=== PATIENT | male | born 1955 | race Caucasian/White ===

== ENCOUNTER 2020-01-26 23:03 | Emergency (ER) | payer MEDICAID, SELFPAY ==
[2020-01-26 23:05] VITALS: BP 174/118; PULSE 147; RESP 28; TEMP 36.2; O2SAT 96; BMI 37.5
--- NOTE | 2020-01-26 23:08 | EKG12_ITS ---
Test Reason : NEURO Blood Pressure : / mmHG Vent. Rate : 129 BPM Atrial Rate : 127 BPM P-R Int : 000 ms QRS Dur : 096 ms QT Int : 270 ms P-R-T Axes : 000 060 270 degrees QTc Int : 395 ms Atrial fibrillation Septal infarct , age undetermined Abnormal ECG Confirmed by ANNABELLE CALDWELL, LISA ([id number]), clinical editor FABIEN BURKETT ([id number]) on 01/29/2020 3:59:20 PM Referred By: PORSCHE Confirmed By:LISA ALANIS MD
--- NOTE | 2020-01-26 23:08 | CT_ITS ---
We are attempting to reach an attending provider to discuss findings. An addendum with communication details will be sent when the communication is complete. STUDY: CT BRAIN WITHOUT CONTRAST REASON FOR EXAM: Male, 64 years old. STROKE. Syncopal episode, ,slurred speech. Last known well 1999 RADIATION DOSAGE (If Supplied By Facility): CTDIvol = ( 44.99 ) mGy, DLP = ( 846.73 ) mGycm TECHNIQUE: Transaxial CT imaging of the brain was performed without administration of intravenous contrast material. Individualized dose optimization techniques were used for this CT. COMPARISON: No relevant priors. FINDINGS: Normal soft tissue structures. Normal calvarium. Abnormal appearance of the left parieto-occipital region where there is a lobulated hyperdense structure approximately 4.9 cm in greatest dimension surrounded by mild to moderate edema. There is effacement of overlying sulci. The appearance suggests neoplastic mass possibly with petechial hemorrhage or hyper dense stroma. Less likely would be a focal infarct with petechial hemorrhage. MRI with contrast is indicated. Otherwise normal size ventricles and extra-axial spaces for the patient''s age. There are areas of decreased attenuation within the white matter tracts of the supratentorial brain, consistent with microvascular disease changes. Normal basal ganglia and thalami. Normal brainstem. Normal cerebellum. Normal visualized paranasal sinuses. CT/Brain/Head without Contrast IMPRESSION: 4.9 cm focal hypodense lesion of the left parieto-occipital region. This could be a mass with mild surrounding edema. Infarct with minimal petechial hemorrhage also possible. MRI with contrast recommended. Electronically Signed: Raphael Tijerina MD at 23:34 EDT , Service support ,
--- NOTE | 2020-01-26 23:09 | CT_ITS ---
STUDY: CTA HEAD AND NECK WITH CONTRAST REASON FOR EXAM: Male, 64 years old. NEURO DEFICIT. Patient had syncopal episode, fell. Slurred speech. Last known well 1999. Hx of HTN and afib RADIATION DOSAGE (If Supplied By Facility): CTDIvol = ( 36.90 ) mGy, DLP = ( 750.06 ) mGycm TECHNIQUE: CT angiography was performed with a multi-detector CT scanner. Data acquisition was obtained from the skull base through the vertex following intravenous administration of Isovue 370 100ml. MIP images were reconstructed from the axial data set. Post-processing of the angiographic images was performed, with multiplanar reformation and 3D reconstruction. Individualized dose optimization techniques were used for this CT. COMPARISON: No relevant priors. FINDINGS: Normal bilateral petrous carotid arteries. There is calcified plaque formation of the right cavernous carotid artery, without a cross-sectional luminal stenosis. There is calcified plaque formation of the left cavernous carotid artery, without a cross-sectional luminal stenosis. Normal right A1 segments of the anterior cerebral artery. Normal left A1 segments of the anterior cerebral artery. Normal intact anterior communicating artery (ACOM). Normal bilateral A2 segments of the anterior cerebral arteries. Normal right M1 and M2 segments of the middle cerebral arteries, with a normal M1 bifurcation. Normal left M1 and M2 segments of the middle cerebral arteries, with a normal M1 bifurcation. Normal right posterior communicating artery (PCOM). Normal left posterior communicating artery (PCOM). Normal bilateral vertebral arteries. Normal basilar artery with a normal basilar bifurcation. The visualized bilateral superior cerebellar (SCA) arteries are normal. Normal bilateral P1, P2 and visualized P3 segments of the posterior cerebral arteries. There is no demonstrated aneurysm of the [place]. AORTIC ARCH: Normal visualized aortic arch. 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 RIGHT CAROTID ARTERIES: Normal right common carotid artery (CCA). Normal right common carotid bulb. Normal origin of the right internal carotid (ICA) artery without a hemodynamically significant stenosis. Normal visualized cervical portion of the right internal carotid artery. Normal origin of the right external carotid artery (ECA). LEFT CAROTID ARTERIES: Normal left common carotid artery (CCA). There is mild atherosclerotic plaque formation with minimal narrowing of the left carotid bulb. There is mild atherosclerotic plaque formation of the origin of the left internal carotid artery with less than 50% cross sectional diameter stenosis. Normal visualized cervical portion of the left internal carotid artery. Normal origin of the left external carotid artery (ECA). VERTEBRAL ARTERIES: Normal bilateral vertebral arteries. There is a 2.5 cm low density mass seen of the left thyroid lobe, ultrasound recommended. CT/CTA Head AND Neck W/ Contrast IMPRESSION: No acute abnormality. No evidence for occlusion, thrombus, or hemodynamically significant stenosis. Electronically Signed: Raphael Tijerina MD at 23:48 EDT , Service support ,
--- NOTE | 2020-01-26 23:10 | ED.DCSUM_ITS ---
History of Present Illness Chief Complaint: Neuro S/Sx Informant: Patient, Significant Other Onset: Today - Speech and problems walking today at 2210. states had tunnel vision Sunday and possibly problems with balance. Quality and Location: Slurred Speech Current Severity: Mild Maximum Severity: Moderate Worsened by: Nothing Relieved by: Nothing Associated Symptoms: Negative for: Headache, Nausea, Vomiting, Chest Pain Narrative: Patient 64-year-old male who was diagnosed today with atrial fibrillation and history of hypertension who was brought to the emergency room by squad because of problems with speech, walking according to patient and . He apparently had tunnel vision that was first noted on Sunday and problems with balance on Sunday. He is presently not on an anticoagulant. There is no prior history of stroke. 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 He is not a good informant. He states he cannot read. He states his has to read to him. Prior similar symptoms: No Recent Illness/Hospitalization: No - Past Medical History (1) History of hypertension Status: Acute (2) Atrial fibrillation with RVR Status: Acute (3) Chest pain Status: Acute (4) New onset atrial fibrillation Status: Acute Past Medical History - Allergies and Home Meds Allergies/Adverse Reactions: Allergies No Known Allergies Allergy (Verified 01/26/20 23:08) Primary Care Physician: Rian Loja III, MD [Primary Care Provider] - Prior records reviewed: Yes Surgical History: noncontributory Lives: Spouse/ Significant Other Smoking Status: Former smoker Alcohol: None Drugs: None Review of Systems General: Denies: Chills, Fever, Malaise, Subjective, Sweats Eyes: Reports: Visual changes - bilaterally, Blurred Vision - bilaterally. Denies: Diplopia ENT: Denies: Bilateral ear pain, Rhinorrhea, Sore throat Cardiovascular: Denies: Chest pain, Palpitations, Heart racing Respiratory: Denies: Dyspnea, Cough, Sputum, Dyspnea on exertion Gastrointestinal: Denies: Abdominal pain, Nausea, Vomiting, Diarrhea, Melena, Hematochezia Genitourinary: Denies: Dysuria, Hematuria, Frequency Musculoskeletal: Denies: Myalgias, Arthralgias, Neck pain, Back pain, Swelling, Extremity Pain Skin: Denies: Rash, Wounds Neurological: Reports: Weakness, - - According to his speech was very garbled. Denies: Headache, Parasthesia, Numbness Psych: Denies: Depression, Anxiety, Suicidal thoughts, Suicidal ideations Endocrine: Denies: Polyuria, Polydipsia Hematologic: Denies: Easy bruising, Easy bleeding Allergy: Denies: Uticaria, Swelling of the mouth STROKE Vital Signs/Narrative: Vital Signs Temp Pulse Resp BP Pulse Ox 01/26/20 23:05 97.2 F L 147 H 28 H 174/118 H 96 Inital Vital Signs reviewed: Yes - NIHSS Initial 1a Level of Consciousness: 0 1b LOC Questions (Score 2 if aphasic/stupor): 1 1c LOC Commands (Only score 1st attempt): 0 2 Best Gaze (If aphasic, use reflexive mvmts.): 0 3 Visual: 0 4 Facial Palsy: 0 5 Motor Arm Right (UN = amputation/fusion): 1 5 Motor Arm Left: 0 6 Motor Leg Right: 1 6 Motor Leg Left: 0 7 Limb ataxia (Only + if out of proportion): 1 8 Sensory (Aphasia/stupor=0 or 1, coma=2): 0 9 Best Language: 0 10 Dysarthria (mute, coma=2, intubated=UN): 1 11 Extinction and Inattention (only scored if +): 0 Total Score: 5 2nd Follow up 1a Level of Consciousness: 0 1b LOC Questions (Score 2 if aphasic/stupor): 0 1c LOC Commands (Only score 1st attempt): 0 2 Best Gaze (If aphasic, use reflexive mvmts.): 0 3 Visual: 0 4 Facial Palsy: 0 5 Motor Arm Right (UN = amputation/fusion): 0 5 Motor Arm Left: 0 6 Motor Leg Right: 0 6 Motor Leg Left: 0 7 Limb ataxia (Only + if out of proportion): 1 8 Sensory (Aphasia/stupor=0 or 1, coma=2): 0 9 Best Language: 0 10 Dysarthria (mute, coma=2, intubated=UN): 0 11 Extinction and Inattention (only scored if +): 0 Total Score: 1 General: Well nourished, Well developed, Obese, Unkempt Head: Normocephalic, Atraumatic. Negative for: Trauma, Tenderness Eyes: - - Static right eye. Negative for: Pale conjunctiva, Scleral icterus ENT: Moist mucous membranes, No rhinorrhea, TM's clear Neck: Supple, Nontender, No lymphadenopathy, No JVD Cardiovascular: No murmurs, Irregular Respiratory: No distress, CTA bilaterally Abdomen: Soft, Nontender, Nondistended, Normal bowel sounds Rectal: Deferred Back: Nontender, Normal Inspection Extremities: Nontender, Edema Skin: Normal color, No rash, No Trauma. Negative for: Cyanosis, Diaphoresis, Jaundice Neurological: Alert, Cranial nerves II-XII grossly intact, Normal DTR. Negative for: Normal Strength, Normal Sensation Psychological: Normal affect Diagnostic/Tx/Re-eval Impressions Brain CT 01/26/20 23:08 IMPRESSION: 4.9 cm focal hypodense lesion of the left parieto-occipital region. This could be a mass with mild surrounding edema. Infarct with minimal petechial hemorrhage also possible. MRI with contrast recommended. Electronically Signed: Raphael Tijerina MD at 23:34 EDT , Service support , ADDENDUM: 01/26/20 2351 IMPRESSION: 4.9 cm focal hypodense lesion of the left parieto-occipital region. This could be a mass with mild surrounding edema. Infarct with minimal petechial hemorrhage also possible. MRI with contrast recommended. N.B. : The above information has been verbally conveyed by Raphael Tijerina MD to Dr. Carlos Dos Santos MD, on 01/26/2020 23:44:38 (ET). Electronically Signed: Raphael Tijerina MD at 23:34 EDT , Service support , Head/Neck CTA 01/26/20 23:09 IMPRESSION: No acute abnormality. No evidence for occlusion, thrombus, or hemodynamically significant stenosis. Electronically Signed: Raphael Tijerina MD at 23:48 EDT , Service support , 01/26/20 23:08 Brain/Head without Contrast [CT] Stat 01/26/20 23:09 CTA Head AND Neck W/ Contrast [CT] Stat Laboratory Results 01/26/20 01/26/20 01/26/20 23:30 23:30 23:30 WBC 8.2 RBC 4.95 Hgb 13.7 Hct 42.5 MCV 85.9 MCH 27.7 MCHC 32.2 RDW Std Deviation 41.1 RDW Coeff of Hong 13.3 Plt Count 277 MPV 10.1 Immature Gran % (Auto) 0.400 Neut % (Auto) 55.7 Lymph % (Auto) 33.7 [place] % (Auto) 7.4 Eos % (Auto) 2.4 Baso % (Auto) 0.4 Absolute Neuts (auto) 4.6 Absolute Lymphs (auto) 2.77 Nucleated RBC % 0 PT 14.7 INR 1.2 APTT 29.0 Sodium 140 Potassium 2.9 L Chloride 106 Carbon Dioxide 27.0 Anion Gap 7 BUN 21 H Creatinine 1.24 Estim Creat Clear Calc 71.81 Est GFR (MDRD) Af Amer 76 Est GFR (MDRD) Non-Af 63 BUN/Creatinine Ratio 16.9 Glucose 171 H Calcium 8.5 Troponin I 0.064 H : Slightly elevated which is a nonspecific marker and may be due to the A. fib versus stroke versus other cause. History is not consistent with cardiac ischemia. - Rhythm Strip Rhythm Strip: A-fib Rate: 145 Ectopy: None - EKG Initial EKG Interpretation: Atrial Fibrillation - EKG was performed at 2334. EKG reveals atrial fibrillation with a ventricular rate of 129. QRS duration 96 ms. QT duration 270 ms. [place] is normal. Decreased anterior force. There is no acute ischemic changes noted. There is motion artifact. - Medical Decision Making Stroke Team Activated: Yes Reviewed Inclusion/Exclusion criteria: Yes Was Patient considered for Endovascular Intervention?: No IV Alteplase (t-PA) Administered: No - Concern for hemorrhagic conversion No contraindications for IV Alteplase (t-PA) administration.: No Alteplase (t-PA) risks, benefits, alternative discussed: No Presents with strokelike symptoms. Patient's states he had tunnel vision that started Sunday and possibly problems with balance. This evening less than 1 hour prior to presentation he had significant alteration of his speech. He also trouble walking and near fall. He presently is not on anticoagulant. He was recently diagnosed with A. fib. With symptoms of started Sunday and involving the posterior circulation and now symptoms that are consistent with an anterior circulation need to rule out embolic phenomenon. CT of the head as well as CTA of the head and neck were obtained for this reason. Stroke order set was initiated. The neurologist at [facility] is concerned patient has hemorrhagic conversion of stroke that occurred on Sunday. He is not a candidate for anticoagulant. There is also concern of mass. He recommended repeat CT in 6 hours. The radiology was informed of neurologist concern at [facility]. In light of history he believes it is hemorrhagic conversion. He recommended MRI with contrast to rule out mass. informing that he did not take the beta-jameel or aspirin he was prescribed today by his doctor. He does have an appointment to see cardiology in 2 to 3 days. Critical care time (excluding procedures): 30-74 minutes - Peripheral care time 36 minutes. This included history from patient, squad and . Documentation, partner management consultant with neurologist at [facility] and radiologist from [facility]. Case discussed with hospitalist. Hospitalist present reviewing patient's records to determine if able to keep versus transfer. Patient requested [facility] [place]. Preferred [facility] versus [facility]. ED Disposition - Plan for ED Patient: Disposition: [facility] Diagnosis: Acute cerebrovascular accident (CVA), Atrial fibrillation with RVR, Hypergly cemia, Hypertension Referrals: Rian Loja III, MD [Primary Care Provider] -
[2020-01-26 23:17] VITALS: BMI 37.5
--- NOTE | 2020-01-26 23:19 | ED.RN ---
NO OLD EKGS IN MUSE
[2020-01-26 23:23] VITALS: BP 207/163; PULSE 144; RESP 21; O2SAT 98
[2020-01-26 23:35] VITALS: BP 207/163; PULSE 134; RESP 32; O2SAT 96
[2020-01-26 23:42] LABS: Absolute Lymphocyte Count 2.77 X10^3/uL (0.83-4.51); Absolute Neutrophil Count 4.6 X10^3/uL (2.0-7.7); Basophil# 0.03 X10^3/uL; Basophil% 0.4 % (0-1); Eosinophils% 2.4 % (0-5); Hematocrit 42.5 % (40-54); Hemoglobin 13.7 g/dL (13.0-16.5); Lymphocyte # 2.77 X10^3/ul (4.0); Lymphocyte % 33.7 % (19-41); Mean Corp Hgb Conc 32.2 g/dL (32-36); Mean Corpuscular Hgb 27.7 pg (27.0-32.0); Mean Corpuscular Volume 85.9 fL (80-94); Mean Platelet Vol. 10.1 fl (6.2-12.0); Monocyte# 0.61 X10^3/uL; Monocyte% 7.4 % (0-10); NRBC Flagged by Analyzer 0 % (0-5); Neutrophil # 4.57 X10^3/uL (2.7-7.7); Neutrophil % 55.7 % (47-70); Platelet Count 277 K/mm3 (150-450); RBC Distribution Width CV 13.3 % (11.6-14.6); RBC Distribution Width SD 41.1 fl (35.1-43.9); Red Blood Count 4.95 M/mm3 (4.6-6.2); White Blood Count 8.2 K/mm3 (4.4-11.0)
[2020-01-26 23:49] VITALS: BP 154/110; PULSE 102; RESP 23; O2SAT 96
[2020-01-26 23:54] LABS: International Normalized Ratio 1.2; Prothrombin Time (Protime)PT. 14.7 SECONDS (11.7-14.9)
[2020-01-27] MEDS: Metoprolol Tartrate 5 MG/5 ML Vial IV (00:03)
[2020-01-27 00:04] VITALS: BP 127/90; PULSE 111; RESP 21; O2SAT 96
[2020-01-27 00:04] LABS: Anion Gap 7 (5-15); BUN 21 mg/dL (7-18); BUN/Creat Ratio 16.9 RATIO (10-20); Calcium,Total 8.5 mg/dL (8.5-10.1); Chloride 106 mmol/L (98-107); Creatinine, Serum 1.24 mg/dL (0.70-1.30); EST Glomerular Filtration Rate 63 mL/min (>60); Est Glom Filt Rate - Afr Amer 76 mL/min (>60); Estimated Creatinine Clearance 71.81 ml/min; Glucose 171 mg/dL (74-106); Potassium 2.9 mmol/L (3.5-5.1); Sodium Level 140 mmol/L (136-145)
[2020-01-27 00:30] VITALS: BP 182/120; PULSE 90; RESP 20; O2SAT 97
[2020-01-27 01:10] VITALS: BP 160/100; PULSE 84; RESP 18; O2SAT 99
[2020-01-27 07:21] LABS: Bedside Glucose 161 mg/dL (70-110)
--- OUTSIDE RECORDS SUMMARY | 2020-06-22 12:52 | XMS RPT_ITS | CCD ---
:1955 External Reference #:[id number] Author Organization [facility] Care Team Providers Name Role Phone Rob WOODS III Unavailable Unavailable CASTRO Unavailable Unavailable REFERRING, WO [id number] Unavailable Unavailable Lucinda PAUL Attending Unavailable SELF Referring Unavailable Rob WOODS Primary Care Unavailable Rob Woods Primary Care Provider Medications Medication Name Sig Date Prescriber Location amLODIPine amLODIPine (NORVASC) 04-12-2020 - [facility] 2.5 mg tablet 05-10-2020 (89241) Indications: Hypertension, unspecified type Take 1 tablet by mouth once daily. 30 tablet 11 05/10/2020 Active Comment: Take 1 tablet by mouth once daily. apixaban apixaban (ELIQUIS) 5 03-09-2020 - [facility] mg tab(s) Take 1 05-10-2020 (84361) tablet by mouth twice daily. 60 tablet 11 05/10/2020 Active Comment: Take 1 tablet by mouth twice daily. busPIRone busPIRone (BUSPAR) 5 mg 04-03-2020 Markus Rivas n[facility]ely [facility] tablet Indications: (05558) Situational anxiety Take 1 tablet by mouth three times daily as needed (anxiety). 30 tablet 5 04/03/2020 Active Comment: Take 1 tablet by mouth three times daily as needed (anxiety). carvedilol carvedilol (COREG) 03-01-2020 - [facility] 12.5 mg tablet TAKE 1 05-07-2020 (86655 ) TABLET BY MOUTH TWICE A DAY WITH MEAL/FOOD 90 tablet 3 05/07/2020 Active Comment: TAKE 1 TABLET BY MOUTH TWICE A DAY WITH MEAL/FOOD Citalopram citalopram (CELEXA) 20 mg 04-03-2020 [facility] tablet Indications: (04960) Situational anxiety Take 1 tablet by mouth once daily. 30 tablet 12 04/03/2020 Active Comment: Take 1 tablet by mouth once daily. Lisinopril lisinopril (ZESTRIL, 03-11-2020 [facility] (85736) PRINIVIL) 20 mg tablet Take 1 tablet by mouth once daily. 30 tablet 03/11/2020 Active Comment: Take 1 tablet by mouth once daily. metFORMIN metFORMIN (GLUCOPHAGE) 500 05-12-2020 [facility] mg tablet Indications: Type (74554) 2 diabetes mellitus without complication, without long-term current use of insulin (HCC) Take 1 tablet by mouth twice daily with meals. . 60 tablet 05/12/2020 Active Comment: Take 1 tablet by mouth twice daily with meals. . Nitroglycerin nitroglycerin sublingual 01-26-2020 [facility] (NITROQUICK) 0.4 mg SL (4419 5) tablet Dissolve 1 tablet under the tongue every 5 minutes as needed for Chest Pain. 1 Bottle of 25 0 01/26/2020 Active Comment: Dissolve 1 tablet under the tongue every 5 minutes as needed for Chest Pain. Problems Active Problems Category Problem Name Status Date Location Acute cerebrovascular Ischemic stroke Active 01-27-2020 [facility] disease (16004) Anxiety disorders Severe anxiety (panic) Active 04-03-2020 [facility] (95509) Cardiac dysrhythmias Atrial fibrillation Active 01-27-2020 [facility] (32833) Congestive heart Heart failure with Active 01-28-2020 [facility] failure; nonhypertensive reduced ejection (78918) fraction Diabetes mellitus Type 2 diabetes Active 01-29-2020 [facility] without complication mellitus without (44 195) complication Disorders of lipid Hyperlipidemia Active [facility] metabolism (47733) Essential hypertension Hypertensive disorder Active [address] [place] [address] (37966) Other nervous system Compression of brain Active 01-28-2020 [facility] disorders (12841) Other nervous system 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 (38732) Other nutritional; Morbid obesity Active 05-28-2017 [facility] endocrine; and metabolic (44 195) disorders Residual codes; Obstructive sleep apnea Active 01-27-2020 - [facility] unclassified syndrome (82376) Past or Other Problems Category Problem Name Status Date Location Abdominal hernia Irreducible incisional Completed 11-04-2013 - [facility] hernia (54750) Other gastrointestinal Enterocutaneous fistula Completed 017 - [facility] disorders (65744) Results Result Name Value Range Unit Interpretation Flag Date Location cnco on 2020-05-13 [facility] Letter Text Normal [facility] (37531) progress on 2020-04 PROGRESS HNO ID: [id number] Normal 05-07-2020 [facility] Author: Markus Woods III Echo ([id number]) Service: ? Author Type: Physician Type: Progress Notes Filed: 05/07/2020 12:32 PM Note Text: SUBJECTIVE: This is a 64 year old male that is here today fo r Chronic Medical Conditions. 1. atrial fib--on eliquis. No chest pain, angina 2. hypertension--tolerates medication well 3. BHAKTI--not using CPAP. Awakens once with nocturia. Sleeping better with less snoring. No excessive daytime sleepiness. 4. obesity-some wt loss 5. anxiety/depression--doing well with celexa and buspar PAST MEDICAL HISTORY Diagnosis Date - Atrial fibrillation (HCC) - Hypertension - Obesity - Obstructive sleep apnea Current Outpatient Medications on File Prior to Visit Medication Sig - amLODIPine (NORVASC) 2.5 mg tablet Take 1 tablet by mouth once daily. - citalopram (CELEXA) 20 mg tablet Take 1 tablet by mouth on ce daily. - busPIRone (BUSPAR) 5 mg tablet Take 1 tablet by mouth thre e times daily as needed (anxiety). - lisinopril (ZESTRIL, PRINIVIL) 20 mg tablet Take 1 tablet by mouth once daily. - apixaban (ELIQUIS) 5 mg tab(s) Take 1 tablet by mouth twic e daily. - nitroglycerin sublingual (NITROQUICK) 0.4 mg SL tablet Dis solve 1 tablet under the tongue every 5 minutes as needed for Chest Pain. No current facility-administered medications on file prior t o visit. FAMILY HISTORY Problem Relation Age of Onset - Cancer Brother pancreas - Coronary Artery Disease Mother - Diabetes Mother Social History Tobacco Use - Smoking status: Never Smoker - Smokeless tobacco: Never Used Substance Use Topics - Alcohol use: Yes Comment: occasional - Drug use: No BP 132/84 (BP Site: Right Arm, BP Position: Sitting, BP Cuff Size: Large Adult) Pulse 76 Resp 16 Wt 125.2 kg (276 lb) BMI 39. 60 kg/m? . OBJECTIVE: APPEARANCE Well appearing, alert, in no acute distress, well -hydrated, well nourished. and Morbidly obese HEART irreg pulse with normal S1 and S2, no murmurs, no gall ops, no JVD appreciated LUNG clear to auscultation Appearance: well dressed well groomed, cooperative and pleas ant Behavior: good eye contact Speech: fluent and coherent Mood: euthymic Affect: appropriate Perceptions: none Thought process: goal directed Thought Content: normal Intelligence level: normal Insight: good Judgment: good ASSESSMENT: atrial fib, rate controlled, on eliquis anxiety/depression--well controlled hypertension -- well controlled obesity BHAKTI anxiety with anger--much better controlled PLAN: healthy weight losing diet and regular exercise eat less sugar, bread, potato, pasta, rice, corn, corn syrup , saturated fats same medications labs as ordered NADINE Dallas MD III lipid panel, basic on 2020-05-07 Cholesterol [Mass/Vol] 133 <200 mg/dL Normal 020 [facility] ([id number]) Comment: Result Comment: <200 mg/dL, Desirable 200-239 mg/dL, Borderline hi gh >239 mg/dL, High Performed By: #### CBC, CMP, LIPNF #### [facility] [address] [place], [place] [address] Cholesterol in HDL [Mass/Vol] 33 >39 mg/dL Low 05-07-2020 [facility] (51536) Comment: Result Comment: 40-59 mg/dL, Acceptable >59 mg/dL, High: Negative ri sk factor for coronary heart disease <40 mg/dL, Low: Positive ris k factor for coronary heart disease Performed By: #### CBC, CMP, LIPNF #### [facility] [address] [place], [place] [address] Cholesterol in LDL 78 <100 mg/dL Normal 05-07-2020 [facility] [Mass/Vol] Echo ([id number]) Comment: Result Comment: <100 mg/dL, Optimal 100-129 mg/dL, Near optimal/ above optimal 130-159 mg/dL, Borderline hi gh 160-189 mg/dL, High >189 mg/dL, Very high Secondary prevention optimal LDL Cholesterol levels are recommended to be < 70 mg/dL Performed By: #### CBC, CMP, LIPNF #### [facility] [address] [place] [address] Fasting Time 13 hrs Normal 05-07-2020 [facility] (31809) Comment: Performed By: #### CBC, CMP, LIPNF #### [facility] [address] [place] [address] LDL:HDL Ratio 2.36 <2.54 Normal 05-07-2020 [facility] (60968) Comment: Result Comment: Reference: 1. National Cholesterol Educ ation Program ATP III Guideline At-A-Glance Quick Desk Reference: National Heart, Lung, and Blood [place]. National Institutes of Health. 2001: NIH Publication No. 01-3305. 2. An International Atherosc lerosis Society position paper: global recommendations for the management of dyslipidemia: executive summary, Atherosclerosis. 2014: 232(2):410-413. Performed By: #### CBC, CMP, LIPNF #### [facility] [address] [place] [address] Non HDL Cholesterol 100 <130 mg/dL Normal 05-07-2020 [facility] (81013) Comment: Result Comment: <130 mg/dL, Optimal 130-159 mg/dL, Near optimal/ above optimal 160-189 mg/dL, Borderline hi gh 190-219 mg/dL, High >219 mg/dL, Very high Secondary prevention optimal non HDL Cholesterol levels are recommended to be < 100 mg/dL Performed By: #### CBC, CMP, LIPNF #### [facility] [address] [place], [place] [address] TC:HDL Ratio 4.03 <5.10 Normal 05-07-2020 [facility] (95246) Comment: Performed By: #### CBC, CMP, LIPNF #### [facility] [address] [address] Triglyceride [Mass/Vol] 111 <150 mg/dL Normal 2019 [facility] (55320) Comment: Result Comment: <150 mg/dL, Normal 150-199 mg/dL, Borderline hi gh 200-499 mg/dL, High >499 mg/dL, Very high Performed By: #### CBC, CMP, LIPNF #### [facility] [address] [place] [address] VLDL Cholesterol 22 <30 mg/dL Normal 05-07-2020 [facility] (25107) Comment: Performed By: #### CBC, CMP, LIPNF #### [place] [address] hemoglobin a1c on HbA1c (Bld) [Mass fraction] 169 mg/dL Normal [facility] (10437) Comment: Result Comment: eAG: (Estima enmanuel average glucose) is a calculated value from HgbA1c and is sales representative printing paper of the average blood glucose level in the last 2-3 month period. Performed By: #### CBC, CMP, LIPNF #### [facility] [address] [place] [address] HbA1c (Bld) [Mass fraction] 7.5 4.3-5.6 % High [facility] (86815) Comment: Result Comment: [place] Cherise betes Association guidelines indicate that patients with HgbA1c in the range 5.7-6.4% are at increased risk for development of diabetes, and intervention by lifestyle modification may be beneficial. HgbA1c greater o r equal to 6.5% is considered diagnostic of diabetes. Performed By: #### CBC, CMP, LIPNF #### [facility] [address] [place] [address] comp metabolic panel on 2020-05-07 Albumin [Mass/Vol] 4.3 3.9-4.9 g/dL Normal 05-07-2020 [facility] ([id number]) Comment: Performed By: #### CBC, CMP, LIPNF #### [facility] [address] [place], [place] [address] ALP [Catalytic activity/Vol] 89 38-113 U/L Normal 0 05-07-2020 [facility] (04679) Comment: Performed By: #### CBC, CMP, LIPNF #### [facility] [address] [place], [place] [address] ALT [Catalytic activity/Vol] 12 10-54 U/L Normal 0 05-07-2020 [facility] (98479) Comment: Performed By: #### CBC, CMP, LIPNF #### [facility] [address] [place], [place] [address] Anion gap [Moles/Vol] 15 9-18 mmol/L Normal 05-07-20 [facility] (50314) Comment: Performed By: #### CBC, CMP, LIPNF #### [facility] [address] [place], [place] [address] AST [Catalytic activity/Vol] 18 14-40 U/L Normal 0 05-07-2020 [facility] (88519) Comment: Performed By: #### CBC, CMP, LIPNF #### [facility] [address] [place], [place] [address] Bilirubin [Mass/Vol] 1.1 0.2-1.3 mg/dL Normal 0 [facility] (97421) Comment: Performed By: #### CBC, CMP, LIPNF #### [facility] [address] [place], [place] [address] Calcium [Mass/Vol] 9.3 8.5-10.2 mg/dL Normal 05-07-2020 [facility] (63217) Comment: Performed By: #### CBC, CMP, LIPNF #### [facility] [address] [place], [place] [address] Chloride [Moles/Vol] 101 97-105 mmol/L Normal 0 [facility] (01079) Comment: Performed By: #### CBC, CMP, LIPNF #### [facility] [address] [place], [place] [address] CO2 [Moles/Vol] 27 22-30 mmol/L Normal 05-07-2020 [facility] (61081) Comment: Performed By: #### CBC, CMP, LIPNF #### [facility] [address] [place] [address] Creatinine [Mass/Vol] 1.21 0.73-1.22 mg/dL Normal 05-07-20 20 [facility] (94824) Comment: Performed By: #### CBC, CMP, LIPNF #### [facility] [address] [place], [place] [address] eGFR- Amer. >60 Normal 05-07-2020 [facility] (66072) Comment: Performed By: #### CBC, CMP, LIPNF #### [place] [address] [place] [address] GFR/1.73 sq M predicted >60 mL/min/{1.73_m2} Normal 05-07-2020 [facility] among non-blacks MDRD Echo ([id number]) (S/P/Bld) [Vol rate/Area] Comment: Result Comment: eGFR (Estima enmanuel GFR) Units of measure: mL/min/1.73 meters squared eGFR is derived from the ree xpressed MDRD Study equation using the following parameters: serum creatinine, age, gender and race. The creatinine assay has been calibrated to be traceable to IDMS. An eGFR <60 mL/min/1.73m2 fo r >3 months is consistent with chronic kidney disease. Refer to KDOQI guidelines for clinical interpretation. In patients with unstable re nal function, e.g. those with acute kidney injury, the eGFR may not accurately reflect actual GFR. Performed By: #### RANDAL CMP, LIPNF #### [facility] [address] [place], [place] [address] Glucose [Mass/Vol] 134 74-99 mg/dL High 05-07-2020 [facility] (28975) Comment: Result Comment: The [place] Diabetes Association (ADA) provides guidance for cutoff values for fasting glucose and random glucose. The ADA defines fasting as no caloric intake for at least 8 hours. Fas ting plasma glucose results between 100 to 125 mg/dL indicate increased risk for diabetes (prediabetes). Fasting plasma glucose resul ts greater than or equal to 126 mg/dL meet the criteria for diagnosis of diabetes. In the absence of unequivocal hyperglycemia, results should be confirmed by repeat testing. In a patient with classic s ymptoms of hyperglycemia or hyperglycemic crisis, random plasma glucose results greater than or equal to 200 mg/dL meet the criteria for diagnosis of diabetes. Reference: Standards of [facility] Care in Diabetes 2016, [place] Diabetes Association. Diabetes Care. 2016.39(Suppl 1). Performed By: #### CBC CMP, LIPNF #### [facility] [address] [place], [place] [address] Potassium [Moles/Vol] 3.9 3.7-5.1 mmol/L Normal 05-07-20 [facility] (59845) Comment: Performed By: #### CBC CMP, LIPNF #### [facility] [address] [place], [place] [address] Protein [Mass/Vol] 7.8 6.3-8.0 g/dL Normal 05-07-2020 [facility] (40177) Comment: Performed By: #### CBC, CMP, LIPNF #### [facility] [address] [place], [place] [address] Sodium [Moles/Vol] 143 136-144 mmol/L Normal 05-07-2020 [facility] (59518) Comment: Performed By: #### CBC, CMP, LIPNF #### [facility] [address] [place], [place] [address] Urea nitrogen [Mass/Vol] 22 9-24 mg/dL Normal 05-07 [facility] (26913) Comment: Performed By: #### CBC, CMP, LIPNF #### [facility] [address] [place], [place] [address] cnov on 2020-05-07 CNOV Office Visit (LAB) Normal 05-07-2020 Echo JOSE Bell ([id number]) 1955 [facility] Time Provider Department ([id number]) 05/07/20 9:45 AM LAB [facility] During your visit today, we recorded the following informati on about you: Markus Woods III MD 05/12/2020 9:58 AM Danisha Garcia, You do have diabetes that is not well controlled. I recommen d eating less sugar, bread, potato, pasta, rice, corn, corn syrup. T ry to walk or exercise 150 minutes per week. Start metformin 500 mg before breakfast and befo re supper. This is not likely to cause weight gain and will not cause blood sugar to go to o low. You should establish with a family physician in [facility] and obtain follow-up labs in 3 months. The lipids, kidney and liver function tests, and other lab results are fine Markus Woods III, MD, FAAFP Referring Provider: MARKUS WOODS III [[id number]] Allergies As of Date: 05/07/2020 (No Known Allergies) Date Reviewed: 05/07/2020 Reviewed by: Lexie Ramos Ma - Fully Assessed Visit Diagnoses:Type 2 diabetes mellitus without complicatio n, without long-term current use of insulin (HCC) [E11.9] Hyperlipidemia LDL goal <100 [E78.5] Hypertension, unspecified type [I10] Order(s):COMP METABOLIC PANEL [SQCMP] Order #: [id number]. #:[id number] HGB A1C [[id number]] Order #: [id number]. #:[id number] LIPID PANEL BASIC [SQLIPB] Order #: [id number]. #:[id number] Prescriptions as of 05/07/2020 Sig: CARVEDILOL 12.5 MG TABLET TAKE 1 TABLET BY MOUTH TWICE * X AMLODIPINE 2.5 MG TABLET Take 1 tablet by mouth once d* CITALOPRAM 20 MG TABLET Take 1 tablet by mouth once d* BUSPIRONE 5 MG TABLET Take 1 tablet by mouth three * LISINOPRIL 20 MG TABLET Take 1 tablet by mouth once d* X APIXABAN 5 MG TABLET Take 1 tablet by mouth twice * NITROGLYCERIN 0.4 MG SUBLINGU* Dissolve 1 tablet under the t * Problem List As Of Date 05/07/2020 Noted Resolved Incarcerated incisional hernia [K43.0] 11/04/2013 Obesity, Class III, BMI >= 40 (morbid obesity) *05/28/2017 More... 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 BHAKTI (obstructive sleep apnea) [G47.33] 01/27/2020 More... HTN (hypertension) [I10] 01/27/2020 More... Atrial fibrillation (HCC) [I48.91] 01/27/2020 More... HFrEF (heart failure with reduced ejection frac*01/28/2020 More... 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] 01/28/2020 Diabetes (HCC) [E11.9] 01/29/2020 Severe anxiety with panic [F41.0] 04/03/2020 Encounter Status:Closed by MARKUS WOODS III, MD on 05/13/20 [facility] Normal 05-07-20 Echo JOSE Bell ([id number]) 1955 M Echo Date Time Provider Department ([id number]) 05/07/20 9:00 AM MARKUS WOODS III During your visit today, we recorded the following informati on about you: Pulse Respiration Blood pressure Weight 76/minute 16/minute 132/84 125.2 kg Markus Woods III MD 05/07/2020 12:32 PM Signed SUBJECTIVE: This is a 64 year old male that is h ere today for Chronic Medical Conditions. 1. atrial fib--on eliquis. No chest pain, angina 2. hypertension--tolerates medication well 3. BHAKTI--not using CPAP. Awakens once with noctur ia. Sleeping better with less snoring. No excessive daytime sleepiness. 4. obesity-some wt loss 5. anxiety/depression--doing well with celexa and buspar PAST MEDICAL HISTORY Diagnosis Date - Atrial fibrillation (HCC) - Hypertension - Obesity - Obstructive sleep apnea Current Outpatient Medications on File Prior to Visit Medication Sig - amLODIPine (NORVASC) 2.5 mg tablet Take 1 tablet by mouth once daily. - citalopram (CELEXA) 20 mg tablet Take 1 tablet by mouth on ce daily. - busPIRone (BUSPAR) 5 mg tablet Take 1 tablet by mout h three times daily as needed (anxiety). - lisinopril (ZESTRIL, PRINIVIL) 20 mg tablet Take 1 tablet by mouth once daily. - apixaban (ELIQUIS) 5 mg tab(s) Take 1 tablet by mouth twic e daily. - nitroglycerin sublingual (NITROQUICK) 0.4 mg SL tablet Dis solve 1 tablet under the tongue every 5 minutes as needed for Chest Pain. No current facility-administered medications on file prior t o visit. FAMILY HISTORY Problem Relation Age of Onset - Cancer Brother pancreas - Coronary Artery Disease Mother - Diabetes Mother Social History Tobacco Use - Smoking status: Never Smoker - Smokeless tobacco: Never Used Substance Use Topics - Alcohol use: Yes Comment: occasional - Drug use: No BP 132/84 (BP Site: Right Ar m, BP Position: Sitting, BP Cuff Size: Large Adult) Pulse 76 Resp 16 Wt 125.2 kg (276 lb) BMI 39.60 kg/m ? . OBJECTIVE: APPEARANCE Well appearing, alert, in no acute distress, we ll-hydrated, well nourished. and Morbidly obese HEART irreg pulse with normal S1 and S2, no murmurs, no gall ops, no JVD appreciated LUNG clear to auscultation Appearance: well dressed well groomed, cooperative and pleas ant Behavior: good eye contact Speech: fluent and coherent Mood: euthymic Affect: appropriate Perceptions: none Thought process: goal directed Thought Content: normal Intelligence level: normal Insight: good Judgment: good ASSESSMENT: atrial fib, rate controlled, on eliquis anxiety/depression--well controlled hypertension -- well controlled obesity BHAKTI anxiety with anger--much better controlled PLAN: healthy weight losing diet and regular exercise eat less sugar, bread, potato, pasta, rice, corn, corn syrup, saturated fats same medications labs as ordered NADINE Dallas MD, III MD Frank A Cebul, III MD 05/07/2020 9:30 AM Addendum PLAN: healthy weight losing diet and regular exercise eat less sugar, bread, potato, pasta, rice, corn, corn syrup, saturated fats same medications labs as ordered Markus Woods III MD Referring Provider: MARKUS WOODS III [[id number]] Allergies As of Date: 05/07/2020 (No Known Allergies) Date Reviewed: 05/07/2020 Reviewed by: Lexie Ramos Ma - Fully Assessed Reason for Visit: Recheck [92] Primary Visit Diagnosis:Atrial fibrillation, unspecifi ed type ([facility]) [I48.91] Other Visit Diagnoses:Hypertension, unspecified type [I10] BHATKI (obstructive sleep apnea) [G47.33] Obesity, Class III, BMI >= 40 (morbid obesity) ([facility]) E66.01 [E66.01] Severe anxiety with panic [F41.0] Type 2 diabetes mellitus without complication, without long-term current use of insulin ([facility]) [E11.9] Order(s):carvedilol (COREG) 12.5 mg tabletTAKE 1 TABLE T BY MOUTH TWICE A DAY WITH MEAL/FOODDisp: 90 tabletRfl: 3 Prescriptions as of 05/07/2020 Sig: CARVEDILOL 12.5 MG TABLET TAKE 1 TABLET BY MOUTH TWICE * AMLODIPINE 2.5 MG TABLET Take 1 tablet by mouth once d* CITALOPRAM 20 MG TABLET Take 1 tablet by mouth once d* BUSPIRONE 5 MG TABLET Take 1 tablet by mouth three * LISINOPRIL 20 MG TABLET Take 1 tablet by mouth once d* APIXABAN 5 MG TABLET Take 1 tablet by mouth twice * NITROGLYCERIN 0.4 MG SUBLINGU* Dissolve 1 tablet under the t * Problem List As Of Date 05/07/2020 Noted Resolved Incarcerated incisional hernia [K43.0] 11/04/2013 Obesity, Class III, BMI >= 40 (morbid obesity) *05/28/2017 More... 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 BHAKTI (obstructive sleep apnea) [G47.33] 01/27/2020 More... HTN (hypertension) [I10] 01/27/2020 More... Atrial fibrillation (HCC) [I48.91] 01/27/2020 More... HFrEF (heart failure with reduced ejection frac*01/28/2020 More... 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] 01/28/2020 Diabetes (HCC) [E11.9] 01/29/2020 Severe anxiety with panic [F41.0] 04/03/2020 Other instructions from your clinician: PLAN: healthy weight losing diet and regular exercise eat less sugar, bread, potato, pasta, rice, corn, corn syrup , saturated fats same medications labs as ordered Markus Woods III MD Prescriptions ordered this encounter Disp Refills Start End CARVEDILOL 12.5 MG TABLET 90 t* 3 05/07/2020 Sig: TAKE 1 TABLET BY MOUTH TWICE A DAY WITH MEAL/FOOD Medications Discontinued During This Encounter Prescriptions - carvedilol (COREG) 12.5 mg tablet (Discontinued) TAKE 1 TABLET BY MOUTH TWICE A DAY WITH MEAL/FOOD Encounter Status:Closed by MARKUS WOODS III, MD on 05/07/20 No panel information on 2020-05-07 Average glucose 169 mg/dL 05-07-2020 [facility] Estimated from (4419 5) glycated hemoglobin mass conc (Bld) HbA1c (Bld) [Mass 7.5 4.3 - 5.6 % % High 05-07-2020 [facility] fraction] (95291) Albumin [Mass/Vol] 4.3 3.9 - 4.9 g/dL 05-07-2020 [facility] g/dL (29682) ALP [Catalytic 89 38 - 113 U/L U/L 05-07-2020 C [facility] activity/Vol] (27298 ) ALT [Catalytic 12 10 - 54 U/L U/L 05-07-2020 [facility] activity/Vol] (08632 ) Anion gap [Moles/Vol] 15 9 - 18 mmol/L 05-07-20 20 [facility] mmol/L (79894) AST [Catalytic 18 14 - 40 U/L U/L 05-07-2020 Cl [facility] activity/Vol] (74593 ) Bilirubin [Mass/Vol] 1.1 0.2 - 1.3 mg/dL 0 [facility] mg/dL (16301) Calcium [Mass/Vol] 9.3 8.5 - 10.2 mg/dL 05-07-2020 [facility] mg/dL (09709) Chloride [Moles/Vol] 101 97 - 105 mmol/L 0 [facility] mmol/L (37024) Cholesterol 133 <200 mg/dL mg/dL 05-07-2020 [facility] [Mass/Vol] (53874) Cholesterol in HDL 33 >39 mg/dL mg/dL Low 05-07-2020 [facility] [Mass/Vol] (41863) Cholesterol in LDL 78 <100 mg/dL mg/dL 05-07-2020 [facility] [Mass/Vol] (84487) Cholesterol in 2.36 <2.54 05-07-2020 [facility] LDL/Cholesterol in ( 69560) HDL [Mass ratio] Cholesterol in VLDL 22 <30 mg/dL mg/dL 05-07-2020 [facility] [Mass/Vol] (14584) Cholesterol non HDL 100 <130 mg/dL mg/dL 0 [facility] [Mass/Vol] (60866) Cholesterol.total/Cho 4.03 <5.10 05-07-20 20 [facility] lesterol in HDL [Mass (53740) ratio] CO2 [Moles/Vol] 27 22 - 30 mmol/L 05-07-2020 [facility] mmol/L (59587) Creatinine [Mass/Vol] 1.21 0.73 - 1.22 mg/dL 2019 [facility] mg/dL (69900) Fasting Time 13 hrs 05-07-2020 [facility] (65902) GFR/1.73 sq M >60 mL/min/{1.73_m 05-07-2020 [facility] predicted among 2} (441 95) blacks MDRD (S/P/Bld) [Vol rate/Area] GFR/1.73 sq M >60 mL/min/{1.73_m 05-07-2020 [facility] predicted among 2} (441 95) non-blacks MDRD (S/P/Bld) [Vol rate/Area] Glucose [Mass/Vol] 134 74 - 99 mg/dL High 05-07-2020 [facility] mg/dL (23654) Potassium [Moles/Vol] 3.9 3.7 - 5.1 mmol/L 05-07-20 20 [facility] mmol/L (73916) Protein [Mass/Vol] 7.8 6.3 - 8.0 g/dL 05-07-2020 [facility] g/dL (49651) Sodium [Moles/Vol] 143 136 - 144 mmol/L 05-07-2020 [facility] mmol/L (65450) Triglyceride 111 <150 mg/dL mg/dL 05-07-2020 [facility] [Mass/Vol] (56935) Urea nitrogen 22 9 - 24 mg/dL mg/dL 05-07-2020 [facility] [Mass/Vol] (91657) progress on 2020-04 PROGRESS HNO ID: [id number] Normal 04-12-2020 [facility] Author: Natalya Bledsoe LPN Echo ([id number]) Service: ? Author Type: ? Type: Progress Notes Filed: 04/12/2020 1:13 PM Note Text: Manual Readin/102 Pulse: 80 BP Roney average: 150/98 P: 82 Repeat BP Check: 156/99 P82 #1 153/104 P83 #2 153/98 P81 #3 147/95 P80 #4 152/95 P82 #5 147/99 P84 #6 Reason for blood pressure check - Last BP elevated and Medic ation adjustment Patient is: Taking medication as prescribed Yes Took medication today Yes If no, date medication last taken N/A Experiencing side effects No BP continued to be elevated at nurse visit 03/11/2020. Lisinop ril was increased to 20mg daily. Tolerating medication change well. Denies any chest pain, shortness of breath, dizziness, or headaches. No caffeine use. Current everyday tobacco use. Alert and oriented. Pt has been identified by name and birthdate: Yes Allergies reviewed: Yes Latex allergy: no. Medication - prescribed and OTC reviewed and updated: Yes Do you need any prescription refills prior to your next visi t: No Health Maintenance: Reviewed and not up to date and provider notified Patient advised that he would be contacted after review by Andres mcgarry credit collections analyst. Natalya chao on 2020-04-12 STEVE Telephone (FAMPWS) Normal 04-12-2020 Echo JOSE Bell ([id number]) 1955 [facility] Date Time Provider Department ([id number]) 04/12/20 MARKUS WOODS III FAMWS During your visit today, we recorded the following informati on about you: Natalya Bledsoe LPN 04/12/2020 1:13 PM Signed Manual Readin/102 Pulse: 80 BP Roney average: 150/98 P: 82 Repeat BP Check: 156/99 P82 #1 153/104 P83 #2 153/98 P81 #3 147/95 P80 #4 152/95 P82 #5 147/99 P84 #6 Reason for blood pressure check - Last BP elevated and Medication adjustment Patient is: Taking medication as prescribed Yes Took medication today Yes If no, date medication last taken N/A Experiencing side effects No BP continued to be elevated at nurse visit 020. Lisinopril was increased to 20mg daily. Tolerating medication change well. Denies any chest pain, shortness of breath, dizzine ss, or headaches. No caffeine use. Current everyday tobacco use. Alert and oriented. Pt has been identified by name and birthdate: Yes Allergies reviewed: Yes Latex allergy: no. Medication - prescribed and OTC reviewed and updated: Yes Do you need any prescription refills prior to your next visi t: No Health Maintenance: Reviewed and not up to date and provider notified Patient advised that he would be contacted after review by Andres mcgarry credit collections analyst. Natalya Cyr, MSN TRUCK DRIVER SALESPERSON.BRIM EDGE TRIMMER 04/12/2020 1:53 PM Signed BP is still not at target of 130/80 or lower. Recommend ad ding HCTZ 12.5 mg daily in the morning. Recheck BP with nurse visit or f 2f visit in 3-4 weeks, also to get BMP at that time to check electrolytes and renal function. Lab ordered. Heather Cyr, MSN TRUCK DRIVER SALESPERSON.DARBY Edwards LPN 04/12/2020 2:44 PM Signed Spoke with pt's . states pt was beside her but she takes pt's messages. advised of Heather's message. states that pt cannot take HCTZ. Dr Woods had tried this in the past and pt had lighthe adedness and almost passed out. states she thinks manual bp ch crispin is better than the automated one that keeps pumping the same arm up. Advi sed that a manual bp was taken at nurse visit prior to being placed on a utomated machine. verbalizes understanding. Advised that they could bring home bp cuff in for next visit to have it checked. Pt does have upcoming a ppt with Dr Woods 05/07/20. Advised she would be contacted after rev iew by Heather. Ok to msg. Tigist Cyr, MSN TRUCK DRIVER SALESPERSON.BRIM EDGE TRIMMER 04/12/2020 3:00 PM Signed BP still too high, even though he may feel fine with BP this high, it puts stress on heart and vascular system, risk of stroke or mini stroke and/or heart issue. I am recommending he start Amlodipine low dose, this is a different drug class than what he's previously taken or currently on. Then follow up with Dr. Woods at his regularly scheduled appointment. The following approved medic ation requests have been transmitted electronically. Signed Prescriptions Disp Refills amLODIPine (NORVASC) 2.5 mg tablet 30 tablet 1 Sig: Take 1 tablet by mouth once daily. Authorizing Provider: HEATHER CYR MSN TRUCK DRIVER SALESPERSON.DARBY Cyr MSN TRUCK DRIVER SALESPERSON.DARBY 04/12/2020 3:00 PM Signed Addended by: HEATHER CYR CNP on: 04/12/2020 03:00 PM Modules accepted: Orders Tigist Edwards LPN 04/12/2020 3:47 PM Signed Left detailed message on pt's answering machine of [employer] nformation and instructions. Advised pt/ to call back with any question s/concerns. Tigist Edwards LPN Allergies As of Date: 04/12/2020 (No Known Allergies) Date Reviewed: 04/12/2020 Reviewed by: Natalya Bledsoe LPN - Fully Assessed Reason for Visit: BP readings [Other] Primary Visit Diagnosis:Hypertension, unspecified type [I10] Order(s):BASIC METABOLIC PNL [SQBMP] Order #: [id number] FUT URE amLODIPine (NORVASC) 2.5 mg tabletTake 1 tablet by mouth onc e daily.Disp: 30 tabletRfl: 1 Prescriptions as of 04/12/2020 Sig: AMLODIPINE 2.5 MG TABLET Take 1 tablet by mouth once d* CITALOPRAM 20 MG TABLET Take 1 tablet by mouth once d* BUSPIRONE 5 MG TABLET Take 1 tablet by mouth three * LISINOPRIL 20 MG TABLET Take 1 tablet by mouth once d* CARVEDILOL 12.5 MG TABLET TAKE 1 TABLET BY MOUTH TWICE * APIXABAN 5 MG TABLET Take 1 tablet by mouth twice * NITROGLYCERIN 0.4 MG SUBLINGU* Dissolve 1 tablet under the t * Medication notes this encounter HYDROCHLOROTHIAZIDE 12.5 MG TABLET >> ORTIZ Carranza TRUCK DRIVER SALESPERSON.DARBY 04/12/2020 2:53 PM took in past and could not tolerate. Problem List As Of Date 04/12/2020 Noted Resolved Incarcerated incisional hernia [K43.0] 11/04/2013 Obesity, Class III, BMI >= 40 (morbid obesity) *05/28/2017 More... 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 BHAKTI (obstructive sleep apnea) [G47.33] 01/27/2020 More... HTN (hypertension) [I10] 01/27/2020 More... Atrial fibrillation (HCC) [I48.91] 01/27/2020 More... HFrEF (heart failure with reduced ejection frac*01/28/2020 More... 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 Disc: Discontinued by Patient AMLODIPINE 2.5 MG TABLET 30 t* 1 04/12/2020 Cmt: Discontinue HCTZ that was previously escrip enmanuel. Patient did not tolerate in the past. Route: ORAL Sig: Take 1 tablet by mouth once daily. Medications Discontinued During This Encounter Prescriptions - hydroCHLOROthiazide (HYDRODIURIL, ESIDRIX) 12.5 mg tablet (Discontinued) Take 1 tablet by mouth once daily. Encounter Status:Closed by HEATHER CYR BRIM EDGE TRIMMER on 04/12/20 cnnurse on [facility] Nurse Visit (FAMPWS) Normal 0 Echo JOSE Bell ([id number]) 1955 [facility] Date Time Provider Department ([id number]) 04/12/20 1:00 PM [place] NURSE FAMPWS During your visit today, we recorded the following informati on about you: Pulse Blood pressure 82/minute 150/98 Natalya Bledsoe LPN 04/12/2020 1:13 PM Signed Manual Readin/102 Pulse: 80 BP Roney average: 150/98 P: 82 Repeat BP Check: 156/99 P82 #1 153/104 P83 #2 153/98 P81 #3 147/95 P80 #4 152/95 P82 #5 147/99 P84 #6 Reason for blood pressure check - Last BP elevated and Medication adjustment Patient is: Taking medication as prescribed Yes Took medication today Yes If no, date medication last taken N/A Experiencing side effects No BP continued to be elevated at nurse visit 020. Lisinopril was increased to 20mg daily. Tolerating medication change well. Denies any chest pain, shortness of breath, dizzine ss, or headaches. No caffeine use. Current everyday tobacco use. Alert and oriented. Pt has been identified by name and birthdate: Yes Allergies reviewed: Yes Latex allergy: no. Medication - prescribed and OTC reviewed and updated: Yes Do you need any prescription refills prior to your next visi t: No Health Maintenance: Reviewed and not up to date and provider notified Patient advised that he would be contacted after review by Andres mcgarry credit collections analyst. Natalya Bledsoe LPN Referring Provider: MARKUS WOODS III [[id number]] Allergies As of Date: 04/12/2020 (No Known Allergies) Date Reviewed: 04/12/2020 Reviewed by: Natalya Bledsoe LPN - Fully Assessed Reason for Visit: Blood Pressure Check [195] Primary Visit Diagnosis:Hypertension, unspecified type [I10] Prescriptions as of 04/12/2020 Sig: CITALOPRAM 20 MG TABLET Take 1 tablet by mouth once d* BUSPIRONE 5 MG TABLET Take 1 tablet by mouth three * LISINOPRIL 20 MG TABLET Take 1 tablet by mouth once d* CARVEDILOL 12.5 MG TABLET TAKE 1 TABLET BY MOUTH TWICE * APIXABAN 5 MG TABLET Take 1 tablet by mouth twice * NITROGLYCERIN 0.4 MG SUBLINGU* Dissolve 1 tablet under the t * Problem List As Of Date 04/12/2020 Noted Resolved Incarcerated incisional hernia [K43.0] 11/04/2013 Obesity, Class III, BMI >= 40 (morbid obesity) *05/28/2017 More... 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 BHAKTI (obstructive sleep apnea) [G47.33] 01/27/2020 More... HTN (hypertension) [I10] 01/27/2020 More... Atrial fibrillation (HCC) [I48.91] 01/27/2020 More... HFrEF (heart failure with reduced ejection frac*01/28/2020 More... 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 Author Type: Physician Type: Progress Notes Filed: 04/03/2020 11:06 AM Note Text: This Team Access Model visit is a walk in encounter. It requ ired patient-provider interaction for the medical decision making as documented below. SUBJECTIVE: This is a 64 year old male that is here today fo r ER Follow Up. records reviewed, including CT brain. No dx or tx given the CT scan did not show acute hemorrhage or worsening area of cerebral infarct. Patient was noted by to have become irrational while pa ssenger in her car driving to [place]. At one point he even reac hed over grabbed the car keys and turned off the indigent to the car. He then got out of the car and walked away up in exit ramp. With this ir rational behavior the patient's became very concerned that he ma y be having extension of his recent stroke. I recommended ER evaluation for urgent CT scan and evaluation. At the present the patient and believed that he was hav ing an anxiety attack. He had been concerned about other cars aroun d them while they were traveling. He became particularly anxious when goi ng through the tunnels along the [facility]. Apparently he has had some anxiety in the past. He feels better now but does become anx ious especially when his is driving. He is not depressed. He notes that petting his dog is very helpful to keep him relaxed. . OBJECTIVE: APPEARANCE Well appearing, alert, in no acute distress, well -hydrated, well nourished. and Appearance: well dressed well groomed, cooperative and pleas ant Behavior: good eye contact Speech: fluent and coherent Mood: euthymic Affect: appropriate Perceptions: none Thought process: goal directed Thought Content: normal Intelligence level: normal Insight: good Judgment: good ASSESSMENT: anxiety with panic attack PLAN: celexa 20mg daily buspar 5 mg TID prn anxiety return to office 1 mo NADINE Dallas MD, III MD cnov on 2020-04-03 CNOV Office Visit (FAMPWS) Normal 04-03-[address] [place] [address] JOSE Bell ([id number]) 1955 [facility] Date Time Provider Department ([id number]) 04/03/20 10:00 AM MARKUS WOODS III During your visit today, we recorded the following informati on about you: Markus Woods III MD 04/03/2020 11:06 AM Signed This Team Access Model visit is a walk in encounter. It requ ired patient-provider interaction for the medical decision making as documented below. SUBJECTIVE: This is a 64 year old male that is here today for ER Follow Up. records reviewed, including CT brain. No dx or tx given th e CT scan did not show acute hemorrhage or worsening area of cerebral infarct. Patient was noted by to have become irrational while passenger in her car driving to [place]. At one point he even reache d over grabbed the car keys and turned off the indigent to the car. He then got o ut of the car and walked away up in exit ramp. With this irrationa l behavior the patient's became very concerned that he may be having exte nsion of his recent stroke. I recommended ER evaluation for urgent CT scan and evaluation. At the present the patient and believed that he was hav ing an anxiety attack. He had been concerned about other cars around them w hile they were traveling. He became particularly anxious when going through the tunnels along the [facility]. Apparently he has had so me anxiety in the past. He feels better now but does become anxiou s especially when his is driving. He is not depressed. He notes that petting his do g is very helpful to keep him relaxed. . OBJECTIVE: APPEARANCE Well appearing, alert, in no acute distress, we ll-hydrated, well nourished. and Appearance: well dressed well groomed, cooperative and pleas ant Behavior: good eye contact Speech: fluent and coherent Mood: euthymic Affect: appropriate Perceptions: none Thought process: goal directed Thought Content: normal Intelligence level: normal Insight: good Judgment: good ASSESSMENT: anxiety with panic attack PLAN: celexa 20mg daily buspar 5 mg TID prn anxiety return to office 1 mo NADINE Dallas MD, III MD Referring Provider: MARKUS WOODS III [[id number]] Allergies As of Date: 04/03/2020 (No Known Allergies) Date Reviewed: 03/11/2020 Reviewed by: Natalya Bledsoe LPN - Fully Assessed Primary Visit Diagnosis:Severe anxiety with panic [F41.0] Prescriptions as of 04/03/2020 Sig: CITALOPRAM 20 MG TABLET Take 1 tablet by mouth once d* LISINOPRIL 20 MG TABLET Take 1 tablet by mouth once d* CARVEDILOL 12.5 MG TABLET TAKE 1 TABLET BY MOUTH TWICE * APIXABAN 5 MG TABLET Take 1 tablet by mouth twice * NITROGLYCERIN 0.4 MG SUBLINGU* Dissolve 1 tablet under the t * Problem List As Of Date 04/03/2020 Noted Resolved Incarcerated incisional hernia [K43.0] 11/04/2013 Obesity, Class III, BMI >= 40 (morbid obesity) *05/28/2017 More... 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 BHAKTI (obstructive sleep apnea) [G47.33] 01/27/2020 More... HTN (hypertension) [I10] 01/27/2020 More... Atrial fibrillation (HCC) [I48.91] 01/27/2020 More... HFrEF (heart failure with reduced ejection frac*01/28/2020 More... 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 Author Type: ? Type: Progress Notes Filed: 03/11/2020 10:35 AM Note Text: Manual Readin/96 Pulse: 94 BP Roney average: 147/99 P: 95 Repeat BP Check: 162/105 P93 #1 156/107 P97 #2 161/105 P92 #3 135/89 P97 #4 146/93 P100 #5 139/101 P91 #6 Reason for blood pressure check - Last BP elevated and Medic ation adjustment Patient is: Taking medication as prescribed Yes Took medication today Yes If no, date medication last taken N/A Experiencing side effects No BP was elevated at nurse visit 02/24/2020. Was started on HCT Z 12.5mg daily. Tolerating medication well. Denies any chest pain, sh ortness of breath, dizziness, or headaches. No caffeine use. Current ev eryday tobacco use. Alert and oriented. Pt has been identified by name and birthdate: Yes Allergies reviewed: Yes Latex allergy: no. Medication - prescribed and OTC reviewed and updated: Yes Do you need any prescription refills prior to your next visi t: No Health Maintenance: Reviewed and not up to date and provider notified Patient advised that he would be contacted after review by John Bledsoe LPN cnpn on 2020-03-11 DARBYN Telephone (FAMPWS) Normal 03-11-2020 Echo [facility] JOSE CYR ([id number]) 1955 [facility] Date Time Provider Department ([id number]) 03/11/20 MARKUS WOODS III During your visit today, we recorded the following informati on about you: Natalya Bledsoe LPN 03/11/2020 10:34 AM Signed Manual Readin/96 Pulse: 94 BP Roney average: 147/99 P: 95 Repeat BP Check: 162/105 P93 #1 156/107 P97 #2 161/105 P92 #3 135/89 P97 #4 146/93 P100 #5 139/101 P91 #6 Reason for blood pressure check - Last BP elevated and Medication adjustment Patient is: Taking medication as prescribed Yes Took medication today Yes If no, date medication last taken N/A Experiencing side effects No BP was elevated at nurse visit 02/24/2020. Was started on H CTZ 12.5mg daily. Tolerating medication well. Denies any chest pain, shortness of breath, dizziness, or headaches. No caffeine use. Curren t everyday tobacco use. Alert and oriented. Pt has been identified by name and birthdate: Yes Allergies reviewed: Yes Latex allergy: no. Medication - prescribed and OTC reviewed and updated: Yes Do you need any prescription refills prior to your next visi t: No Health Maintenance: Reviewed and not up to date and provider notified Patient advised that he would be contacted after review by John STONE. Natalya Woods III MD 03/11/2020 6:04 PM Signed Increase lisinopril 20 mg daily. Continue same o ther medications. Nurse blood pressure check in 2 weeks. Pharmacy will be noti fied of the increase in dose. NADINE Dallas MD, III MD Frank Cebul, III, MD, FAAFP Petty Post CMA, MA 03/11/2020 6:47 PM Signed Detailed message left for patient. Petty Post CMA Allergies As of Date: 03/11/2020 (No Known Allergies) Date Reviewed: 03/11/2020 Reviewed by: Natalya Bledsoe LPN - Fully Assessed Reason for Visit: Blood Pressure Check [195] Order(s):lisinopril (ZESTRIL, PRINIVIL) 20 mg tabletTake 1 t ablet by mouth once daily.Disp: 30 tabletRfl: 11 Prescriptions as of 03/11/2020 Sig: LISINOPRIL 20 MG TABLET Take 1 tablet by mouth once d* CARVEDILOL 12.5 MG TABLET TAKE 1 TABLET BY MOUTH TWICE * APIXABAN 5 MG TABLET Take 1 tablet by mouth twice * NITROGLYCERIN 0.4 MG SUBLINGU* Dissolve 1 tablet under the t * Problem List As Of Date 03/11/2020 Noted Resolved Incarcerated incisional hernia [K43.0] 11/04/2013 Obesity, Class III, BMI >= 40 (morbid obesity) *05/28/2017 More... 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 BHAKTI (obstructive sleep apnea) [G47.33] 01/27/2020 More... HTN (hypertension) [I10] 01/27/2020 More... Atrial fibrillation (HCC) [I48.91] 01/27/2020 More... HFrEF (heart failure with reduced ejection frac*01/28/2020 More... 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 Medications Discontinued During This Encounter lisinopril (ZESTRIL, PRINIVIL) 10 mg* 30 t* 11 02/06/202003/11 Cmt: dose increase Route: ORAL Sig: Take 1 tablet by mouth once daily. Disc: Dosage adjustment Encounter Status:Closed by PETTY POST CMA on 03/11/20 cnnsoto on [facility] Nurse Visit (FAMPWS) Normal 0 Echo [facility] JOSE CYR ([id number]) 1955 [facility] Date Time Provider Department ([id number]) 03/11/20 10:30 AM [place] [facility] During your visit today, we recorded the following informati on about you: Pulse Blood pressure 95/minute 147/99 Natalya Bledsoe LPN 03/11/2020 10:35 AM Signed Manual Readin/96 Pulse: 94 BP Roney average: 147/99 P: 95 Repeat BP Check: 162/105 P93 #1 156/107 P97 #2 161/105 P92 #3 135/89 P97 #4 146/93 P100 #5 139/101 P91 #6 Reason for blood pressure check - Last BP elevated and Medication adjustment Patient is: Taking medication as prescribed Yes Took medication today Yes If no, date medication last taken N/A Experiencing side effects No BP was elevated at nurse visit 02/24/2020. Was started on H CTZ 12.5mg daily. Tolerating medication well. Denies any chest pain, shortness of breath, dizziness, or headaches. No caffeine use. Curren t everyday tobacco use. Alert and oriented. Pt has been identified by name and birthdate: Yes Allergies reviewed: Yes Latex allergy: no. Medication - prescribed and OTC reviewed and updated: Yes Do you need any prescription refills prior to your next visi t: No Health Maintenance: Reviewed and not up to date and provider notified Patient advised that he would be contacted after review by John STONE. Natalya Bledsoe LPN Referring Provider: MARKUS WOODS III [[id number]] Allergies As of Date: 03/11/2020 (No Known Allergies) Date Reviewed: 03/11/2020 Reviewed by: Natalya Bledsoe LPN - Fully Assessed Reason for Visit: Blood Pressure Check [195] Primary Visit Diagnosis:Hypertension, unspecified type [I10] Prescriptions as of 03/11/2020 Sig: CARVEDILOL 12.5 MG TABLET TAKE 1 TABLET BY MOUTH TWICE * APIXABAN 5 MG TABLET Take 1 tablet by mouth twice * LISINOPRIL 10 MG TABLET Take 1 tablet by mouth once d* NITROGLYCERIN 0.4 MG SUBLINGU* Dissolve 1 tablet under the t * Problem List As Of Date 03/11/2020 Noted Resolved Incarcerated incisional hernia [K43.0] 11/04/2013 Obesity, Class III, BMI >= 40 (morbid obesity) *05/28/2017 More... 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 BHAKTI (obstructive sleep apnea) [G47.33] 01/27/2020 More... HTN (hypertension) [I10] 01/27/2020 More... Atrial fibrillation (HCC) [I48.91] 01/27/2020 More... HFrEF (heart failure with reduced ejection frac*01/28/2020 More... 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 Author Type: Nurse Practitioner Type: Progress Notes Filed: 03/09/2020 10:55 AM Note Text: Neurology Consultation Note Date: March 09, 2020 Patient Name: Jose Cyr Neurology was requested to evaluate Jose Cyr, a 64 year old male for a chief complaint of Stroke. Our recommendations of care will be communicated by shared medical record. HPI: This is Mr. Jose Cyr a 64 year old right handed mal e from home who presents to the [facility] neurolog[facility] [employer] [employer] with a chief complaint of Stroke and Afib. Per HANDP from hospital admission 01/27/20: Patient is a 64 y ear old male with past medical history significant for HTN and BHAKTI (non c ompliant with CPAP at home). Patient was recently diagnosed with new onset Afib 01/24 by PCP after presenting with episode of chest pain, nausea and dizziness and was found to be in Afib w/ RVR by EKG. Patient presents to [facility] NSICU as transfer from [place] ED with stroke-like symptoms and possi ble acute infarct w/ hemorrhagic transformation on CT brain. Patient s tates on Sunday, he developed tunnel vision and balance issues. Ye , he developed slurred speech and aphasia. He reports attempting to get up and he just fell to the ground. This prompted ER evaluation. Minnie kimbrough states he's been under significant stress lately with the passing o f his brother in November 2019 and he and his are currently in process o f finding a house to move to [place]. He reports prior to Sunday, he was f eeling 'fine', 'no issues'. 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 He reports that he cannot read or write. H e denies fever, chills, cough, SOB, n/v/d, abdominal pain, syncope. ? At [place], patient initial NIH of 5 for mild dysarthria, on ly able to answer 1 question right, drift in RUE, and mild ataxia. By t he time of [facility] telestroke eval, NIH down to 1 for ataxia. CTH performed wit h findings of left parieto occipital hypodensity suggestive of ischemic st roke with hemorrhagic conversion vs possible mass w/ surrounding edema . Therefore patient transferred here for further evaluation and close mo nitoring. Neurosurgery was consulted and pt did not need intervention. MRI - 1. ?Limited examination as detailed above. 2. ?Findings suggesting acute ischemic infarct with petechia l hemorrhagic transformation in the superior left occipital lobe. ?There i s effacement of sulci and mild mass effect on the left lateral ventricle. ?No midline shift. 3. ?Small area of petechial-type hemorrhage likely associate d with a small area of acute ischemic infarct in the right frontal lo be. 4. ?Small acute ischemic infarct in the left parietal lobe. ECHO -- Exam indication: Stroke - The left ventricle is mildly dilated. Left ventricular sys tolic function is mildly decreased. EF = 45 ? 5% (visual est.) Definity contra st used for endocardial border detection. LVEF 45% on VERY limited views , mild diffuse hypokinesis - The right ventricle is dilated. RV mildly enlarged; could not assess systolic functioni - The right atrial cavity is dilated. - Mild AR. Tech VERY poor study Rhythm appears to be afib - The patient has not had a prior CC echocardiographic exam for comparison. LDL -57 HgA1C - 7.3 Pt was DC'd home with therapy and asa. Pt was to start OAC o n 02/17. Today patient arrives with his . 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 Tests, results and stroke risk factors were d iscussed at length. Patient states that he has followed up with his card iologist but was holding off until this appointment to start him on Eliqu is. Patient is 6 weeks out from stroke. Will start Eliquis 5 mg twice a day. He is to stop aspirin at the start of Eliquis. No neuro deficits n oted. Patient states that he is back to baseline. confirms th at Memory is intact and that he is back to his normal self. Questions ans wered. Blood pressure well controlled, cholesterol, controlled. Patient d enies any palpitations, lightheadedness. No further therapy needed. Norma villalpando may continue to follow up with PCP and astrobiologist. Stroke Risk factors: Atrial Fibrillation Diabetes Hypertension Obesity OUTPATIENT MEDICATIONS carvedilol (COREG) 12.5 mg tablet TAKE 1 TABLET BY MOUTH TWI CE A DAY WITH MEAL/FOOD lisinopril (ZESTRIL, PRINIVIL) 10 mg tablet Take 1 tablet by mouth once daily. nitroglycerin sublingual (NITROQUICK) 0.4 mg SL tablet Disso lve 1 tablet under the tongue every 5 minutes as needed for Chest Pain. apixaban (ELIQUIS) 5 mg tab(s) Take 1 tablet by mouth twice daily. MEDICAL HISTORY PAST MEDICAL HISTORY Diagnosis Date - Atrial fibrillation (HCC) - Hypertension - Obesity - Obstructive sleep apnea SURGICAL HISTORY PAST SURGICAL HISTORY Procedure Laterality Date - HERNIA REPAIR HX 1997 umbilical - PAST SURGICAL HISTORY OF 1965 Artificial right eye SOCIAL HISTORY Social History Tobacco Use - Smoking status: Never Smoker - Smokeless tobacco: Never Used Substance Use Topics - Alcohol use: Yes Comment: occasional - Drug use: No FAMILY HISTORY FAMILY HISTORY Problem Relation Age of Onset - Cancer Brother pancreas - Coronary Artery Disease Mother - Diabetes Mother ALLERGIES ALLERGIES No Known Allergies ROS: GENERAL: No fevers or irritability. Normal sleep, appetite and activity HEENT: Negative for headaches, No problems with hearing or v ision, no nose bleeds or other nasal problems. NECK: Negative for stiffness, lumps or significant neck swel ling CARDIOVASCULAR: Negative for chest pain, syncope, lightheadn ess or heart racing. MUSCULOSKELETAL: Negative for joint pain or swelling, back p ain or muscle pain. NEURO: No weakness, seizures or change in mental status. Pt unable to read Physical Exam: Vital Signs: BP 135/84 Pulse 86 Temp 36.5 ?C (97.7 ?F) Ht 5' 10 (1 .778 m) Wt 281 lb (127.5 kg) SpO2 97% BMI 40.32 kg/m? In no acute distress. HEENT normal. Pulses are palpable bila terally. No clubbing, cyanosis, stigmata of infective endocarditis. Patient's language is intact to comprehension and repetition . Speech is fluent. Mood is appropriate. Fund of knowledge is adequate.P atient is aware and oriented. Follows commands. Cranial Nerves: Pupils are equal and reactive. Extra-ocular movements are intact in all axes. There is no gaze evoked or spontaneous n ystagmus. Visual kendall are full to confrontation. There is no evidenc e of APD. Facial sensation is intact. Facial muscles are symmetric and there is no hyperacusis. Hearing is intact to finger rub bilaterally. To ngue and uvula are midline. Shoulder shrug is intact and symmetric. Fundoscopy reveals normal appearing fundi bilaterally. Motor exam reveals normal bulk and tone and no involuntary m ovements. There is no evidence of cogwheeling rigidity. There is no ev idence of bradykinesia. Strength testing showed normal and symmetric strength in all extremities. Muscle stretch reflexes showed 2+ and symmetric reflexes cody aterally. There were no pathological reflexes elicited. Sensation is intact to fine touch and sharp touch. Vibration and proprioceptive sensations were normal. There is no evidence of sensory inattention with simultaneous stimulation. Finger to nose and heel to reed testing revealed no evidence of dysmetria. Rapid alternating movements revealed no evidence of dysdiado chokinesia. Gait is normal appearing with symmetric arm swing. Romberg's testing was negative. NIHSS: 1(a). Mental Status - LOC 0 = Alert and Attentive 1(b). LOC Questions 0 = Correct age and month 1(c). LOC-Commands 0 = Both 2. Gaze 0 = Normal 3. Visual Kendall 0 = Full 4. Facial Weakness 0 = Normal 5(a). Left Arm 0 = No drift 5(b). Right Arm 0 = No drift 6(a). Left Leg 0 = No drift 6(b). Right Leg 0 = No drift 7. Ataxia 0 = Absent 8. Sensory 0 = Normal 9. Aphasia 0 = None 10. Dysarthria 0 = Absent 11. Neglect 0 = None NIHSS Total (0-42): 0 (pt with artificial right eye) LABS/DATA: WBC (thou/cmm) Date Value 01/29/2020 9.97 01/28/2020 8.58 01/27/2020 8.31 RBC (mil/cmm) Date Value 01/29/2020 4.79 01/28/2020 4.87 01/27/2020 4.98 Platelet Count (thou/cmm) Date Value 01/29/2020 271 01/28/2020 292 01/27/2020 280 BUN (mg/dL) Date Value 01/29/2020 21 01/28/2020 19 01/27/2020 17 Creatinine (mg/dL) Date Value 01/29/2020 1.01 01/28/2020 0.97 01/27/2020 0.98 Lab Results Component Value Date NEUTP 69.6 06/01/2017 ABSNEUT 6.49 06/01/2017 LYMPHP 21.0 06/01/2017 ABSLYMPH 1.96 06/01/2017 ABSMONO 0.62 06/01/2017 EODINP 2.3 06/01/2017 ABSEOSIN 0.21 06/01/2017 BASOP 0.4 06/01/2017 ABSBASO 0.04 06/01/2017 Lab Results Component Value Date PLT 271 01/29/2020 HB 13.0 01/29/2020 HB 14.6 01/26/2020 HCT 41.5 01/29/2020 ALB 4.0 01/26/2020 CA 8.5 01/29/2020 TBILI 1.1 01/26/2020 ALKPHOS 72 01/26/2020 AST 24 01/26/2020 GLUC 122 01/29/2020 BUN 21 01/29/2020 NA 140 01/29/2020 K 3.6 01/29/2020 CHLOR 103 01/29/2020 CO2 25 01/29/2020 ANION 12 01/29/2020 ALT 13 01/26/2020 CRP (mg/dL) Date Value 05/29/2017 13.3 No results found for: USCRP Hemoglobin A1C (%) Date Value 01/27/2020 7.3 TSH (uIU/mL) Date Value 01/27/2020 1.780 No results found for: B12 PT INR (no units) Date Value 05/26/2017 1.2 INR (no units) Date Value 01/27/2020 1.06 Cholesterol, Total (mg/dL) Date Value 01/27/2020 99 Total Cholesterol, Nonfasting (mg/dL) Date Value 01/26/2020 110 LDL Cholesterol, Nonfasting (mg/dL) Date Value 01/26/2020 61 LDL Calculated (mg/dL) Date Value 01/27/2020 57 HDL Cholesterol (mg/dL) Date Value 01/27/2020 28 HDL Cholesterol, Nonfasting (mg/dL) Date Value 01/26/2020 28 Triglyceride (mg/dL) Date Value 01/27/2020 72 Triglycerides, Nonfasting (mg/dL) Date Value 01/26/2020 106 VLDL Cholesterol (mg/dL) Date Value 01/27/2020 14 VLDL Cholesterol, Nonfasting (mg/dL) Date Value 01/26/2020 21 IMAGING: MRI, CT, ECHO, blood work as above This is Jose Cyr, a 64 year old male with a history of n ewly diagnosed Afib, HTN who presents with stroke. His neurological examina tion is essentially normal at this visit. ASSESSMENT/PLAN: 1. Cerebrovascular accident (CVA), unspecified mechanism (HC C) - ICD9: 434.91, ICD10: I63.9 (primary diagnosis) 2. Atrial fibrillation, unspecified type (HCC) - ICD9: 427.3 1, ICD10: I48.91 -start Eliquis 5 mg bid -stop asa at the start of eliquis 3. Hypertension, unspecified type - ICD9: 401.9, ICD10: I10 - good control - Continue current medication(s) - Recommended regular aerobic exercise. - Recommend home blood pressure monitoring, to bring results in on next visit - Goal of BP <140/90 4. Type 2 diabetes mellitus with other specified complicatio n, without long-term current use of insulin (HCC) - ICD9: 250.80, ICD10 : E11.69 poorly controlled - Continue follow up with PCP For Stroke patients, I discussed risk factor modification in cluding: Hypertension - Target blood pressure <140/90, <130/85 for hi gh risk, normal 120/80 Physical inactivity - target exercise at least 3 times per w ewiiaapaayp Obesity - target ideal body weight and girth <35 for women, <40 for men Diabetes - Target <6.5-7% Smoking - Target smoking cessation Hyperlipidemia - Target total cholesterol < 200, Target LDL <100, < 70 for high risk, Target HDL >45 for men, >55 for women, Target tri glycerides <150 RTC as needed Mk Hanna APRN.BRIM EDGE TRIMMER: [facility], Department of Neurology 40 minutes were spent with patient, > 50% of time was spent counseling and coordinating care. Topics discussed included differential di agnosis, diagnosis, treatment options, and alf disease manageme nt. CC: Referring Physician: MOSHE SORIANO PA-C [address] [id number] PCP: Markus Woods III MD [address] [place] [address] cnov on 2020-03-09 CNOV Office Visit ([facility]) Normal 03-09-20 [address] JOSE Frias ([id number]) 1955 M Medical Date Time Provider Department Center 03/09/20 10:00 AM MK HANNA (TRUCK DRIVER SALESPERSON, BRIM EDGE TRIMMER) [facility] ([id number]) During your visit today, we recorded the following informati on about you: Temperature Pulse Blood pressure Weight 97.7 degrees 86/minute 135/84 127.5 kg Height 1.778 m Mk Hanna APRN.DARBY PASTOR 03/09/2020 10:15 AM Signed Start Eliquis Stop aspirin when starting eliquis Stay active Follow Up as needed Mk Hanna APRN.CNP, CNP 03/09/2020 10:55 AM Signed Neurology Consultation Note Date: March 09, 2020 Patient Name: Jose Cyr Neurology was requested to evaluate Jose Cyr, a 64 year old male for a chief complaint of Stroke. Our recommend ations of care will be communicated by shared medical record. HPI: This is Mr. Jose Cyr a 64 year old right handed m salbador from home who presents to the [facility] outpatient neurology departmen t with a chief complaint of Stroke and Afib. Per HANDP from hospital admission 01/27/20: Mingo huerta is a 64 year old male with past medical history significant for HTN and BHAKTI (non compliant with CPAP at home). Patient was recently diagnosed with new onset Afib 01/24 by PCP after presenting with episode of c hest pain, nausea and dizziness and was found to be in Afib w/ RVR by EKG. Patient presents to [facility] NSICU as transfer from [place] ED with stroke-like symptoms and possible acute infarct w/ h emorrhagic transformation on CT brain. Patient states on , he developed tunnel vision and balance issues. Yesterday, he developed slurred speech and aphasia. He reports attempting to get up and he just fell to the ground. This prompted ER evaluation. Patient states he's been under signific ant stress lately with the passing of his brother in November 2019 and he and his are currently in process of finding a house t o move to [place]. He reports prior to Sunday, he was feeling 'fine', 'no issues'. 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 He reports t hat he cannot read or write. He denies fever, chills, cough, SOB, n/v/d, abdominal pain, syncope. ? At [place], patient initial NIH of 5 for mild dysarthria, only able to answer 1 question right, drift in RUE, and mild ataxia. By the time of [facility] telestroke eval, NIH down to 1 for ataxia. CTH performed with finding s of left parieto occipital hypodensity sugges tive of ischemic stroke with hemorrhagic conversion vs possible mass w/ surrounding edema. Therefore patient transferred here for further evaluation and close monitoring. Neurosurgery was consulted and pt did not need intervention. MRI - 1. ?Limited examination as detailed above. 2. ?Findings suggesting acute ischemic infarct with petechia l hemorrhagic transformation in the superior left occipital lobe. ?There is effacement of sulci and mild mass effect on the left lateral ventric le. ?No midline shift. 3. ?Small area of petechial-type hemorrhage likely associate d with a small area of acute ischemic infarct in the right frontal lo be. 4. ?Small acute ischemic infarct in the left parietal lobe. ECHO -- Exam indication: Stroke - The left ventricle is mildly dilated. Left flynn tricular systolic function is mildly decreased. EF = 45 ? 5% (visual est.) Definity contra st used for endocardial border detection. LVEF 45% on VERY limited views , mild diffuse hypokinesis - The right ventricle is dil ated. RV mildly enlarged; could not assess systolic functioni - The right atrial cavity is dilated. - Mild AR. Tech VERY poor study Rhythm appears to be afib - The patient has not had a prior CC echocardiographic exa m for comparison. LDL -57 HgA1C - 7.3 Pt was DC'd home with therapy and asa. Pt was to start OAC o n 02/17. Today patient arrives with his . 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 Tests, results and stroke risk factors were d iscussed at length. Patient states that he has followed up with [facility] astrobiologist but was holding off until this appointment to st art him on Eliquis. Patient is 6 weeks out from stroke. Will start Eliquis 5 mg twice a day. He i s to stop aspirin at the start of Eliquis. No neuro deficits noted. Patient states that he is back to baseline. confirms that Memory is intact and that he is back to his normal self. Questions answered. Blood pressure well con trolled, cholesterol, controlled. Patient denies any palp itations, lightheadedness. No further therapy needed. Patient may continue to follow up [facility] PCP and astrobiologist. Stroke Risk factors: Atrial Fibrillation Diabetes Hypertension Obesity OUTPATIENT MEDICATIONS carvedilol (COREG) 12.5 mg tablet TAKE 1 TABLET BY MOUTH TWI CE A DAY WITH MEAL/FOOD lisinopril (ZESTRIL, PRINIVIL) 10 mg tab let Take 1 tablet by mouth once daily. nitroglycerin sublingual (NITROQUICK) 0. 4 mg SL tablet Dissolve 1 tablet under the tongue every 5 minutes as needed for Chest Pain. apixaban (ELIQUIS) 5 mg tab(s) Take 1 tablet by mouth twice daily. MEDICAL HISTORY PAST MEDICAL HISTORY Diagnosis Date - Atrial fibrillation (HCC) - Hypertension - Obesity - Obstructive sleep apnea SURGICAL HISTORY PAST SURGICAL HISTORY Procedure Laterality Date - HERNIA REPAIR HX 1997 umbilical - PAST SURGICAL HISTORY OF 1965 Artificial right eye SOCIAL HISTORY Social History Tobacco Use - Smoking status: Never Smoker - Smokeless tobacco: Never Used Substance Use Topics - Alcohol use: Yes Comment: occasional - Drug use: No FAMILY HISTORY FAMILY HISTORY Problem Relation Age of Onset - Cancer Brother pancreas - Coronary Artery Disease Mother - Diabetes Mother ALLERGIES ALLERGIES No Known Allergies ROS: GENERAL: No fevers or irritability. Normal sleep, appetite and activity HEENT: Negative for headaches, No problems with hearing or v ision, no nose bleeds or other nasal problems. NECK: Negative for stiffness, lumps or significant neck swel ling CARDIOVASCULAR: Negative for chest pain, syncope, lightheadness or heart racing. MUSCULOSKELETAL: Negative fo r joint pain or swelling, back pain or muscle pain. NEURO: No weakness, seizures or change in mental status. Pt unable to read Physical Exam: Vital Signs: BP 135/84 Pulse 86 Temp 36.5 ?C (97.7 ?F) Ht 5' 10 (1 .778 m) Wt 281 lb (127.5 kg) SpO2 97% BMI 40.32 kg/m? In no acute distress. HEENT normal. Pulses are palpable bila terally. No clubbing, cyanosis, stigmata of infective endocarditis. Patient's language is intact to comprehension and repetition. Speech is fluent. Mood is appropriate. Fund of knowledge is adequate.Patient i s aware and oriented. Follows commands. Cranial Nerves: Pupils are equal and reactive. Extra-ocular movements are intact in all axes. There is no gaze evoked or spontan eous nystagmus. Visual kendall are full to confronta tion. There is no evidence of APD. Facial sensation is intact. Facial muscles ar e symmetric and there is no hyperacusis. Hearing is intact to finger rub bilaterally. Tongue and uvula are midline. Shoulder shrug is intact and symmetric. Fundoscopy reveals normal appearing fundi bilaterally. Motor exam reveals normal bulk and tone and no involuntary movements. There is no evidence of cogwheeling rigidity. There is no evidence of bradykinesia. Strength testing showed normal and symmetric strength in all extremities. Muscle stretch reflexes showed 2+ and symmetric reflexes b ilaterally. There were no pathological reflexes elicited. Sensation is intact to fine touch and sharp touch. Vibration and proprioceptive sensations were normal. There is no evidence of sensory inat tention with simultaneous stimulation. Finger to nose and heel to reed testing revealed no evidence of dysmetria. Rapid alternating movements revealed no evidence of dysdiado chokinesia. Gait is normal appearing with symmetric arm swing. Romberg's testing was negative. NIHSS: 1(a). Mental Status - LOC 0 = Alert and Attentive 1(b). LOC Questions 0 = Correct age and month 1(c). LOC-Commands 0 = Both 2. Gaze 0 = Normal 3. Visual Kendall 0 = Full 4. Facial Weakness 0 = Normal 5(a). Left Arm 0 = No drift 5(b). Right Arm 0 = No drift 6(a). Left Leg 0 = No drift 6(b). Right Leg 0 = No drift 7. Ataxia 0 = Absent 8. Sensory 0 = Normal 9. Aphasia 0 = None 10. Dysarthria 0 = Absent 11. Neglect 0 = None NIHSS Total (0-42): 0 (pt with artificial right eye) LABS/DATA: WBC (thou/cmm) Date Value 01/29/2020 9.97 01/28/2020 8.58 01/27/2020 8.31 RBC (mil/cmm) Date Value 01/29/2020 4.79 01/28/2020 4.87 01/27/2020 4.98 Platelet Count (thou/cmm) Date Value 01/29/2020 271 01/28/2020 292 01/27/2020 280 BUN (mg/dL) Date Value 01/29/2020 21 01/28/2020 19 01/27/2020 17 Creatinine (mg/dL) Date Value 01/29/2020 1.01 01/28/2020 0.97 01/27/2020 0.98 Lab Results Component Value Date NEUTP 69.6 06/01/2017 ABSNEUT 6.49 06/01/2017 LYMPHP 21.0 06/01/2017 ABSLYMPH 1.96 06/01/2017 ABSMONO 0.62 06/01/2017 EODINP 2.3 06/01/2017 ABSEOSIN 0.21 06/01/2017 BASOP 0.4 06/01/2017 ABSBASO 0.04 06/01/2017 Lab Results Component Value Date PLT 271 01/29/2020 HB 13.0 01/29/2020 HB 14.6 01/26/2020 HCT 41.5 01/29/2020 ALB 4.0 01/26/2020 CA 8.5 01/29/2020 TBILI 1.1 01/26/2020 ALKPHOS 72 01/26/2020 AST 24 01/26/2020 GLUC 122 01/29/2020 BUN 21 01/29/2020 NA 140 01/29/2020 K 3.6 01/29/2020 CHLOR 103 01/29/2020 CO2 25 01/29/2020 ANION 12 01/29/2020 ALT 13 01/26/2020 CRP (mg/dL) Date Value 05/29/2017 13.3 No results found for: USCRP Hemoglobin A1C (%) Date Value 01/27/2020 7.3 TSH (uIU/mL) Date Value 01/27/2020 1.780 No results found for: B12 PT INR (no units) Date Value 05/26/2017 1.2 INR (no units) Date Value 01/27/2020 1.06 Cholesterol, Total (mg/dL) Date Value 01/27/2020 99 Total Cholesterol, Nonfasting (mg/dL) Date Value 01/26/2020 110 LDL Cholesterol, Nonfasting (mg/dL) Date Value 01/26/2020 61 LDL Calculated (mg/dL) Date Value 01/27/2020 57 HDL Cholesterol (mg/dL) Date Value 01/27/2020 28 HDL Cholesterol, Nonfasting (mg/dL) Date Value 01/26/2020 28 Triglyceride (mg/dL) Date Value 01/27/2020 72 Triglycerides, Nonfasting (mg/dL) Date Value 01/26/2020 106 VLDL Cholesterol (mg/dL) Date Value 01/27/2020 14 VLDL Cholesterol, Nonfasting (mg/dL) Date Value 01/26/2020 21 IMAGING: MRI, CT, ECHO, blood work as above This is Jose Cyr, a 64 year old male with a history of n ewly diagnosed Afib, HTN who presents with stroke. His neurological examina tion is essentially normal at this visit. ASSESSMENT/PLAN: 1. Cerebrovascular accident (CVA), unspe cified mechanism (HCC) - ICD9: 434.91, ICD10: I63.9 (primary diagnosis) 2. Atrial fibrillation, unspecified type (HCC) - ICD9: 427.31, ICD10: I48.91 -start Eliquis 5 mg bid -stop asa at the start of eliquis 3. Hypertension, unspecified type - ICD9: 401.9, ICD10: I10 - good control - Continue current medication(s) - Recommended regular aerobic exercise. - Recommend home blood pressure monitoring, to b ring results in on next visit - Goal of BP <140/90 4. Type 2 diabetes mellitus with other specified complicatio n, without long-term current use of insulin (HCC) - ICD9: 250.80, ICD10 : E11.69 poorly controlled - Continue follow up with PCP For Stroke patients, I discussed risk factor modification in cluding: Hypertension - Target blood pressure <140/90, <130/85 for high risk, normal 120/80 Physical inactivity - target exercise at least 3 times per w ewiiaapaayp Obesity - target ideal body weight and girth <35 for women, <40 for men Diabetes - Target <6.5-7% Smoking - Target smoking cessation Hyperlipidemia - Target tota l cholesterol < 200, Target LDL <100, < 70 for high risk, Target HDL >45 for men, >55 for women, Target triglyce rides <150 RTC as needed Mk Hanna, TRUCK DRIVER SALESPERSON.BRIM EDGE TRIMMER: [facility], Department of Neurology 40 minutes were spent with patient, > 50% of time was spent counseling and coordinating care. Topics di scussed included differential diagnosis, diagnosis, treatment options, and termite treater helper disease management. CC: Referring Physician: MOSHE SORIANO PA-C [address] [place] [id number] PCP: Markus Woods III MD [facility] [place] [id number] Referring Provider: MOSHE SORIANO (NORMA) [[id number]] Allergies As of Date: 03/09/2020 (No Known Allergies) Date Reviewed: 03/09/2020 Reviewed by: Louise Garg) Richard - Fully Assessed Reason for Visit: Hospital Discharge [414] Neurologic Problem [71] Primary Visit Diagnosis:Cerebrovascular accident (CVA), unspecified mechanism (HCC) [I63.9] Other Visit Diagnoses:Hypertension, unspecified type [I10] Type 2 diabetes mellitus with other specified complication, without long-term current use of insulin (HCC) [E11.69] Atrial fibrillation, unspecified type (HCC) [I48.91] Order(s):apixaban (ELIQUIS) 5 mg tab(s)Take 1 tablet by mout h twice daily.Disp: 60 tabletRfl: 2 Prescriptions as of 03/09/2020 Sig: CARVEDILOL 12.5 MG TABLET TAKE 1 TABLET BY MOUTH TWICE * LISINOPRIL 10 MG TABLET Take 1 tablet by mouth once d* NITROGLYCERIN 0.4 MG SUBLINGU* Dissolve 1 tablet under the t * APIXABAN 5 MG TABLET Take 1 tablet by mouth twice * Problem List As Of Date 03/09/2020 Noted Resolved Incarcerated incisional hernia [K43.0] 11/04/2013 Obesity, Class III, BMI >= 40 (morbid obesity) *05/28/2017 More... 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 BHAKTI (obstructive sleep apnea) [G47.33] 01/27/2020 More... HTN (hypertension) [I10] 01/27/2020 More... Atrial fibrillation (HCC) [I48.91] 01/27/2020 More... HFrEF (heart failure with reduced ejection frac*01/28/2020 More... 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 Medications Discontinued During This Encounter metoprolol tartrate, short acting, (* 60 t* 0 01/29/202003/09 Cmt: Pls do bedside delivery Route: ORAL/FEEDING TUBE Si tablet by ORAL/FEEDING TUBE route every 12 hours. Patient not taking: Reported on 02/24/2020 Disc: Changing Therapy/Dosage Form Hydrochlorothiazide 12.5 mg capsule 30 c* 12 02/24/20202019 Route: ORAL Sig: Take 1 capsule by mouth once daily. Patient not taking: Reported on 03/09/2020 Disc: Course of therapy completed metoprolol succinate ER (TOPROL XL) * 30 t* 0 01/29/202003/09 Route: ORAL Sig: Take 1 tablet by mouth once daily. Disc: Course of therapy completed aspirin, enteric coated (ECOTRIN LOW* 01/26/2020 03/09/2020 Class: OTC Route: ORAL Sig: Take 1 tablet by mouth once daily. Disc: Course of therapy completed Disposition: Return if symptoms worsen or fail to improve. Follow-up and Disposition History Recorded Encounter Status:Closed by MK HANNA CNP on 03/09/20 progress on 2020-02 PROGRESS HNO ID: [id number] Normal 02-24-2020 [facility] Author: Emily Montes LPN Echo ([id number]) Service: ? Author Type: ? Type: Progress Notes Filed: 02/24/2020 2:19 PM Note Text: Patient here for a blood pressure check up. States has been careful in watching what he eats and trying to loose weight. BP Roney Serial, Digital BP Readings, Taken 2 Minutes Apart, A verage Readings: 151/100 Pulse: 97 Reason for blood pressure check - Last BP elevated and Medic ation adjustment Patient is: Taking medication as prescribed Yes Took medication today Yes Experiencing side effects No Recommendations Continue taking medications as prescribed Follow-up Yes Pt has been identified by name and birthdate: Yes Allergies reviewed: Yes Latex allergy: no. Medication - prescribed and OTC reviewed and updated: Yes Do you need any prescription refills prior to your next visi t: No Health Maintenance: Reviewed and up to date 149/101 96 145/100 97 152/94 91 149/96 100 161/111 99 cnpn on 2020-02-24 CNPN Telephone (FAMPWS) Normal 02-24-2020 Echo Andrei JOSE CYR ([id number]) 1955 [facility] Date Time Provider Department ([id number]) 02/24/20 MARKUS WOODS III During your visit today, we recorded the following informati on about you: Emily Montes LPN 02/24/2020 2:18 PM Signed Patient here for a blood pressure check. BP Roney average 151/100 97 Markus Woods III MD 02/24/2020 6:16 PM Signed I recommend adding HCTZ 12.5 mg every morning. Prescri ption sent to pharmacy Continue lisinopril 10 mg every morning. Blood pressure rech crispin in 2 weeks Markus Woods III, MD, FAAFP Petty Post CMA, [place] 02/25/2020 10:47 AM Signed Patients , Lorena, has been notified, voiced understand ing. Patient scheduled for BP check. Petty Post CMA Allergies As of Date: 02/24/2020 (No Known Allergies) Date Reviewed: 02/24/2020 Reviewed by: Emily Montes LPN - Fully Assessed Reason for Visit: Blood Pressure [15] Order(s):Hydrochlorothiazide 12.5 mg capsuleTake 1 capsule b y mouth once daily.Disp: 30 capsuleRfl: 12 Prescriptions as of 02/24/2020 Sig: HYDROCHLOROTHIAZIDE 12.5 MG C* Take 1 capsule by mouth once * LISINOPRIL 10 MG TABLET Take 1 tablet by mouth once d* METOPROLOL TARTRATE 25 MG TAB* 1 tablet by ORAL/FEEDING TUBE * Patient not taking: Reported on 02/24/2020 METOPROLOL SUCCINATE ER 50 MG* Take 1 tablet by mouth once d * ASPIRIN 81 MG TABLET,DELAYED * Take 1 tablet by mouth once d * NITROGLYCERIN 0.4 MG SUBLINGU* Dissolve 1 tablet under the t * Problem List As Of Date 02/24/2020 Noted Resolved Incarcerated incisional hernia [K43.0] 11/04/2013 Obesity, Class III, BMI >= 40 (morbid obesity) *05/28/2017 More... 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 BHAKTI (obstructive sleep apnea) [G47.33] 01/27/2020 More... HTN (hypertension) [I10] 01/27/2020 More... Atrial fibrillation (HCC) [I48.91] 01/27/2020 More... HFrEF (heart failure with reduced ejection frac*01/28/2020 More... 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 Encounter Status:Closed by PETTY POST CMA on 02/25/20 cnnsoto on [facility] Nurse Visit (FAMPWS) Normal 0 Echo JOSE Bell ([id number]) 1955 M Echo Date Time Provider Department ([id number]) 02/24/20 2:00 PM [place] NURSE FAMPWS During your visit today, we recorded the following informati on about you: Emily Montes LPN 02/24/2020 2:19 PM Signed Patient here for a blood pre ssure check up. States has been careful in watching what he eats and trying to loose weight. BP Roney Serial, Digital BP Readings, Taken 2 Minutes Ap art, Average Readings: 151/100 Pulse: 97 Reason for blood pressure check - Last BP elevated and Medication adjustment Patient is: Taking medication as prescribed Yes Took medication today Yes Experiencing side effects No Recommendations Continue taking medications as prescribed Follow-up Yes Pt has been identified by name and birthdate: Yes Allergies reviewed: Yes Latex allergy: no. Medication - prescribed and OTC reviewed and updated: Yes Do you need any prescription refills prior to your next visi t: No Health Maintenance: Reviewed and up to date 149/101 96 145/100 97 152/94 91 149/96 100 161/111 99 Referring Provider: MARKUS WOODS III [[id number]] Allergies As of Date: 02/24/2020 (No Known Allergies) Date Reviewed: 02/24/2020 Reviewed by: Emily Montes LPN - Fully Assessed Reason for Visit: Blood Pressure Check [195] Primary Visit Diagnosis:Hypertension, unspecified type [I10] Prescriptions as of 02/24/2020 Sig: LISINOPRIL 10 MG TABLET Take 1 tablet by mouth once d* ASPIRIN 81 MG TABLET,DELAYED * Take 1 tablet by mouth once d * NITROGLYCERIN 0.4 MG SUBLINGU* Dissolve 1 tablet under the t * METOPROLOL TARTRATE 25 MG TAB* 1 tablet by ORAL/FEEDING TUBE * Patient not taking: Reported on 02/24/2020 METOPROLOL SUCCINATE ER 50 MG* Take 1 tablet by mouth once d * Problem List As Of Date 02/24/2020 Noted Resolved Incarcerated incisional hernia [K43.0] 11/04/2013 Obesity, Class III, BMI >= 40 (morbid obesity) *05/28/2017 More... 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 BHAKTI (obstructive sleep apnea) [G47.33] 01/27/2020 More... HTN (hypertension) [I10] 01/27/2020 More... Atrial fibrillation (HCC) [I48.91] 01/27/2020 More... HFrEF (heart failure with reduced ejection frac*01/28/2020 More... 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] 01/28/2020 Diabetes (HCC) [E11.9] 01/29/2020 Encounter Status:Closed by EMILY MONTES LPN on 02/24/20 cnpn on 2020-02-18 DARBYN Telephone (FAMPWS) Normal 02-18-2020 Echo JOSE Bell ([id number]) 1955 [facility] Date Time Provider Department ([id number]) 02/18/20 MARKUS WOODS III During your visit today, we recorded the following informati on about you: Markus Woods III MD 02/18/2020 1:46 PM Signed Staff please schedule patient for appt juan antonio Lopes in [place] if possible Markus Woods III MD [facility]02/20/2020 1:14 PM Signed Spoke with she stated patient is not interested. Tigist Edwards LPN 02/20/2020 1:47 PM Signed Please see below, LAURA. Tigist Woods III MD 02/20/2020 5:41 PM Signed noted Markus Woods III MD Allergies As of Date: 02/18/2020 (No Known Allergies) Date Reviewed: 02/06/2020 Reviewed by: Petty ([facility]) VI Post - Fully Assessed Reason for Visit: Sleep Problem [100] Primary Visit Diagnosis:BHAKTI (obstructive sleep apnea) [G47.3 3] Order(s):CONSULT TO SLEEP MEDICINE - TORIBIO LT [[id number]] Order #: [id number]: 1 FUTURE Prescriptions as of 02/18/2020 Sig: LISINOPRIL 10 MG TABLET Take 1 tablet by mouth once d* METOPROLOL TARTRATE 25 MG TAB* 1 tablet by ORAL/FEEDING TUBE * METOPROLOL SUCCINATE ER 50 MG* Take 1 tablet by mouth once d * ASPIRIN 81 MG TABLET,DELAYED * Take 1 tablet by mouth once d * NITROGLYCERIN 0.4 MG SUBLINGU* Dissolve 1 tablet under the t * Problem List As Of Date 02/18/2020 Noted Resolved Incarcerated incisional hernia [K43.0] 11/04/2013 Obesity, Class III, BMI >= 40 (morbid obesity) *05/28/2017 More... 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 BHAKTI (obstructive sleep apnea) [G47.33] 01/27/2020 More... HTN (hypertension) [I10] 01/27/2020 More... Atrial fibrillation (HCC) [I48.91] 01/27/2020 More... HFrEF (heart failure with reduced ejection frac*01/28/2020 More... 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 Author Type: Physician Type: Progress Notes Filed: 02/06/2020 11:30 AM Note Text: SUBJECTIVE: This is a 64 year old male that is here today fo r 1. hospital follow up for stroke on 01/25. --slurred speech a nd collapsed to floor. Speech returned to normal by 01/26. But he continue s to have decreased coordination and fine motor skills R hand, though getting better. To see neurologist in [place] next mo. 2. hypertension- 3. atrial fib--had echo and to f/u with astrobiologist 4. diabetes mellitus--new dx HbA1C 7.3 on 01/27/20 Current Outpatient Medications on File Prior to Visit Medication Sig - lisinopril (ZESTRIL, PRINIVIL) 5 mg tablet Take 1 tablet b y mouth once daily. - metoprolol tartrate, short acting, (LOPRESSOR) 25 mg table t 1 tablet by ORAL/FEEDING TUBE route every 12 hours. - metoprolol succinate ER (TOPROL XL) 50 mg 24 hr tablet Justice e 1 tablet by mouth once daily. - aspirin, enteric coated (ECOTRIN LOW STRENGTH) 81 mg EC ta blet Take 1 tablet by mouth once daily. - nitroglycerin sublingual (NITROQUICK) 0.4 mg SL tablet Dis solve 1 tablet under the tongue every 5 minutes as needed for Chest Pain. No current facility-administered medications on file prior t o visit. PAST MEDICAL HISTORY Diagnosis Date - Atrial fibrillation (HCC) - Hypertension - Obesity - Obstructive sleep apnea FAMILY HISTORY Problem Relation Age of Onset - Cancer Brother pancreas - Coronary Artery Disease Mother - Diabetes Mother Social History Tobacco Use - Smoking status: Never Smoker - Smokeless tobacco: Never Used Substance Use Topics - Alcohol use: Yes Comment: occasional - Drug use: No BP 155/102 Pulse 97 Resp 18 Wt 128.8 kg (284 lb) BMI 39.61 kg/m? OBJECTIVE: APPEARANCE Well appearing, alert, in no acute distress, well -hydrated, well nourished. 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 NECK Supple, no adenopathy; thyroid symmetric, normal size, no bruits HEART irreg irreg pulse with normal S1 and S2, no murmurs, n o gallops, no JVD appreciated LUNG wheezing diffusely NEURO Awake, alert and oriented x 3, Reflexes symmetrical, N ormal gait, No involuntary motions. and negative findings: speech normal, R omberg negative, muscle tone normal, some decreased coordination wi th fingers of R hand ASSESSMENT: s/p CVA with decreased coordination fingers R hand hypertension--not at goal atrial fibrillation-rate controlled diabetes mellitus--new dx obesity PLAN: healthy weight losing diet and regular exercise eat less sugar, bread, potato, pasta, rice, corn, corn syrup , saturated fats increase lisinopril 10 mg daily--nurse bp check in 2 wks follow up with astrobiologist and other specialists as appoint ed. return to office 3 mos with labs NADINE Dallas MD on 2020-02-06 CNOV Office Visit (FAMPWS) Normal 02-05- 20 Echo Andrei JOSE CYR ([id number]) 1955 M Echo Date Time Provider Department ([id number]) 02/06/20 10:00 AM MARKUS WOODS III During your visit today, we recorded the following informati on about you: Pulse Respiration Blood pressure Weight 97/minute 18/minute 155/102 128.8 kg Markus Woods III MD 02/06/2020 11:30 AM Signed SUBJECTIVE: This is a 64 year old male that is here today fo r 1. hospital follow up for stroke on 01/25. --slurred speech and collapsed to floor. Speech returned to normal by 01/26. But he matti nues to have decreased coordination and fine motor skills R hand, though getting be tter. To see neurologist in [place] next mo. 2. hypertension- 3. atrial fib--had echo and to f/u with astrobiologist 4. diabetes mellitus--new dx HbA1C 7.3 on 01/27/20 Current Outpatient Medications on File Prior to Visit Medication Sig - lisinopril (ZESTRIL, PRINI CROW) 5 mg tablet Take 1 tablet by mouth once daily. - metoprolol tartrate, short acting, (LOPRESSOR) 25 mg table t 1 tablet by ORAL/FEEDING TUBE route every 12 hours. - metoprolol succinate ER (T OPROL XL) 50 mg 24 hr tablet Take 1 tablet by mouth once daily. - aspirin, enteric coated (ECOTRIN LOW S TRENGTH) 81 mg EC tablet Take 1 tablet by mouth once daily. - nitroglycerin sublingual (NITROQUICK) 0.4 mg SL tablet Dis solve 1 tablet under the tongue every 5 minutes as needed for Chest Pain. No current facility-administered medications on file prior t o visit. PAST MEDICAL HISTORY Diagnosis Date - Atrial fibrillation (HCC) - Hypertension - Obesity - Obstructive sleep apnea FAMILY HISTORY Problem Relation Age of Onset - Cancer Brother pancreas - Coronary Artery Disease Mother - Diabetes Mother Social History Tobacco Use - Smoking status: Never Smoker - Smokeless tobacco: Never Used Substance Use Topics - Alcohol use: Yes Comment: occasional - Drug use: No BP 155/102 Pulse 97 Resp 18 Wt 128.8 kg (284 lb) BMI 39.61 kg/m? OBJECTIVE: APPEARANCE Well appearing, alert, in no acute distress, we ll-hydrated, well nourished. 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 NECK Supple, no adenopathy; thyroid symmetric, normal size, no bruits HEART irreg irreg pulse with normal S1 and S2, n o murmurs, no gallops, no JVD appreciated LUNG wheezing diffusely NEURO Awake, alert and oriented x 3, Reflexes symmetrical, N ormal gait, No involuntary motions. and negative findings: speech nor mal, Romberg negative, muscle tone normal, some decreased coordination with fingers of R hand ASSESSMENT: s/p CVA with decreased coordination fingers R hand hypertension--not at goal atrial fibrillation-rate controlled diabetes mellitus--new dx obesity PLAN: healthy weight losing diet and regular exercise eat less sugar, bread, potato, pasta, rice, corn, corn syrup, saturated fats increase lisinopril 10 mg daily--nurse bp check in 2 wks follow up with astrobiologist and other specialists as appoint ed. return to office 3 mos with labs NADINE Dallas MD, III MD 02/06/2020 11:13 AM Signed PLAN: healthy weight losing diet and regular exercise eat less sugar, bread, potato, pasta, rice, corn, corn syrup, saturated fats increase lisinopril 10 mg daily--nurse bp check in 2 wks follow up with astrobiologist and other specialists as appoint ed. return to office 3 mos with labs Markus Woods III MD Referring Provider: MARKUS WOODS III [[id number]] Allergies As of Date: 02/06/2020 (No Known Allergies) Date Reviewed: 02/06/2020 Reviewed by: Petty ([facility]) VI Post - Fully Assessed Reason for Visit: Hospital Follow Up [177] Cmt: stroke Primary Visit Diagnosis:Hospital discharge follow-up [Z09] Other Visit Diagnoses:Acute ischemic stroke (HCC) [I63.9] Atrial fibrillation, unspecified type (HCC) [I48.91] Hypertension, unspecified type [I10] Type 2 diabetes mellitus without complication, without long-term current use of insulin (HCC) [E11.9] Hyperlipidemia LDL goal <100 [E78.5] Order(s):COMP METABOLIC PANEL [SQCMP] Order #: [id number] FU CHAD HGB A1C [AULLF0U] Order #: [id number] FUTURE LIPID PANEL BASIC [SQLIPB] Order #: [id number] FUTURE lisinopril (ZESTRIL, PRINIVIL) 10 mg tabletTake 1 tablet by mouth once daily.Disp: 30 tabletRfl: 11 Prescriptions as of 02/06/2020 Sig: METOPROLOL TARTRATE 25 MG TAB* 1 tablet by ORAL/FEEDING TUBE * METOPROLOL SUCCINATE ER 50 MG* Take 1 tablet by mouth once d * ASPIRIN 81 MG TABLET,DELAYED * Take 1 tablet by mouth once d * NITROGLYCERIN 0.4 MG SUBLINGU* Dissolve 1 tablet under the t * LISINOPRIL 10 MG TABLET Take 1 tablet by mouth once d* Problem List As Of Date 02/06/2020 Noted Resolved Incarcerated incisional hernia [K43.0] 11/04/2013 Obesity, Class III, BMI >= 40 (morbid obesity) *05/28/2017 More... 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 BHAKTI (obstructive sleep apnea) [G47.33] 01/27/2020 More... HTN (hypertension) [I10] 01/27/2020 More... Atrial fibrillation (HCC) [I48.91] 01/27/2020 More... HFrEF (heart failure with reduced ejection frac*01/28/2020 More... 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 return to office 3 mos with labs Markus Woods III MD Prescriptions ordered this encounter Disp Refills Start End LISINOPRIL 10 MG TABLET 30 t* 11 02/06/2020 Cmt: dose increase Route: ORAL Sig: Take 1 tablet by mouth once daily. Medications Discontinued During This Encounter lisinopril (ZESTRIL, PRINIVIL) 5 mg * 30 t* 0 01/30/202002/05 Route: ORAL Sig: Take 1 tablet by mouth once daily. Disc: Dosage adjustment Encounter Status:Closed by MARKUS WOODS III, MD on 02/06/20 progress on 2020-01 PROGRESS HNO ID: [id number] Normal 02-03-2020 [facility] Author: Ninoska (Network Navigator) Bakari Gale ([id number]) Service: ? Author Type: Marketing Production Specialist Type: Progress Notes Filed: 02/03/2020 9:07 AM Note Text: TRANSITIONAL CARE MANAGEMENT (TCM) COMMUNITY MONITORING PROG GALDINO Provider Action/FYI: SUMMARY: Pt discharged from [facility] on January 28 0. Admitted for: Acute Ischemic Stroke Contact made with patient: Yes Hi my name is PETE Lynn and I am calling from the [facility] on behalf of your PCP, Markus Woods I II MD I understand you were recently in the hospital so I am calling to check in with you to ensure you are feeling well now that you're home . May I ask you a few questions related to your hospital stay and well-b eing? Yes Contact with patient post discharge, spoke to spouse. Patient identified by name and Yes Do you feel your health is BETTER, WORSE, or the SAME since leaving the hospital? Better ACTION TAKEN: Patient indicated symptoms are better or same, no action req uired. Continue outreach. MEDICATIONS: Many patients have questions or concerns about their medicat ions once they are home. Do you have any questions about taking your medica tions or which medication you should be on? No Do you need any medication refills at this time, including a ny of the medications you might take only when needed? No ACTION TAKEN: No action required For RNs or Pharmacy completing outreach ONLY, was a medicati on review completed? N/A SOCIAL: We would like to make sure you have what you need so that yo ur basics needs are met - including your personal safety, food, housin g and medications. Would you like to speak with a social work engineer steam to help give you support for any of these needs? No It can be normal to feel anxious or down during a time like this. Would you like to talk to a mental health professional about how y ou have been feeling? No ACTION TAKEN: No action taken DISCHARGE INTRUCTIONS: Your discharge instructions / After Visit Summary (AVS) are important in guiding you through the recovery process. Do you have any qu estions related to your discharge instructions? No Do you have all the necessary equipment and supplies at home ? Yes ACTION TAKEN: No action required I would like to help you schedule a hospital follow-up virtu al or telephone visit with your PCP. This is a great way for you t o connect with your provider to ensure you have safely transitioned home. I f you are agreeable, I will send your request to a machine container washer who will contact and assist you with that appointment. This will give you an oppo rtunity to ask any questions or address any concerns you may have with your PCP. Inform the patient that if they have any questions or concer ns prior to that appointment, to call their PCP's office right away. ACTION TAKEN: No action required, patient already has an appointment sched [facility]. CHILD SPECIALIST: Patient MyChart status is: Declined Thank you for taking the time to talk with me today. We want to work with you to ensure that we are keeping you healthy and out of the hospital. Our team would like to stay connected with you to make sure you are feeling well. I am inviting you to complete a short questionnaire that lei l be sent to you via [employer] once a week for the next few weeks. [employer] is the best way for us to communicate about your health and well-being i n between physician visits and telephone calls. This questionnaire is designed to check in on how you are feeling and if certain symptoms are improving or getting worse. Your treatment team will review your answers and then follow up if we notice any concerning changes in your sympto ms. The questionnaire will come to you through your [employer] account and will replace the need for us to call you each week. May I sign yo u up for this? No, reason: I don't like using [employer] ACTION TAKEN: No action - patient declines News Clipping Cutter. Enter next [facility] ent outreach date for the following week on the same day of the week as t rahul in the Track Pt Outreach. Your doctor would like us to remind you of the recommendatio ns regarding the coronavirus (Covid19) outbreak: ? Avoid public places as much as possible. ? Avoid close contact (within 6 feet) with others you don?t live with, especially if they are sick. ? Stay home if you are sick. ? Wash your hands regularly for at least 20 seconds with soa p and water. ? Wear a cloth mask in public places to help reduce communit y spread. ? Do not go to your Doctor?s office unless instructed to do so. For any non-emergency symptoms, call your Doctor?s office to get ins tructions on how to manage (we might recommend a telephone or virtual vis it). For emergency symptoms, proceed to Emergency Department as usual but inform them of cough and fever symptoms MARCELA if present (or call on the way if possible). progress on 2020-01 PROGRESS HNO ID: [id number] Normal 01-30-2020 [facility] Author: Ninoska (Network Navigator) Bakari Gale ([id number]) Service: ? Author Type: Marketing Production Specialist Type: Progress Notes Filed: 02/03/2020 9:07 AM Note Text: TRANSITIONAL CARE MANAGEMENT (TCM) COMMUNITY MONITORING PROG GALDINO Provider Action/FYI: SUMMARY: Pt discharged from [facility] on January 28 0. Admitted for: Acute ischemic stroke Contact made with patient: No - scheduled next outreach for next business day in the Track Pt Outreach section, February 03, 2020 Outreach ended cnptoutreach on CNPTOUTREACH Patient Outreach ([facility]) Normal 0 01-30-2020 Echo JOSE Bell ([id number]) 1955 [facility] Date Time Provider Department ([id number]) 01/30/20 NINOSKA VILLEGAS (NETWORK NAVIGATOR)[facility] During your visit today, we recorded the following informati on about you: PETE Lynn NAVIGATOR 02/03/2020 9:07 AM Rose thomson TRANSITIONAL CARE MANAGEMENT (TCM) COMMUNITY MONITORING PROG GALDINO Provider Action/FYI: SUMMARY: Pt discharged from [facility] on January 28 0. Admitted for: Acute ischemic stroke Contact made with patient: No - scheduled next o utrea for next business day in the Track Pt Outreach section, February 03, 2020 Outreach ended Ninoska PETE VillegasATOR 02/03/2020 9:07 AM Rose thomson TRANSITIONAL CARE MANAGEMENT (TCM) COMMUNITY MONITORING PROG GALDINO Provider Action/FYI: SUMMARY: Pt discharged from [facility] on January 28 0. Admitted for: Acute Ischemic Stroke Contact made with patient: Yes Hi my name is Ninoska PETE Villegas and I am calling from the [facility] on behalf of your PCP, Markus Woods III MD I understand you were recently in the hospital so I am calling to check in with you to ensure you are feeling well now that you're home. May I ask you a f ew questions related to your hospital stay and well-being? Yes Contact with patient post discharge, spoke to spouse. Patient identified by name and Yes Do you feel your health is BETTER, WORSE, or the SAME since leaving the hospital? Better ACTION TAKEN: Patient indicated symptoms are better or same, no action r equired. Continue outreach. MEDICATIONS: Many patients have questions or concerns about their medications once they are home. Do you have any questions about taking your medication s or which medication you should be on? No Do you need any medication refills at this time, including a ny of the medications you might take only when needed? No ACTION TAKEN: No action required For RNs or Pharmacy completing outreach ONLY, was a medicati on review completed? N/A SOCIAL: We would like to make sure y ou have what you need so that your basics needs are met - including your personal safety, fo od, housing and medications. Would you like to speak with a social work engineer steam to help give you support for any of these needs? No It can be normal to feel anxious or down during a time lik e this. Would you like to talk to a mental health professional abo ut how you have been feeling? No ACTION TAKEN: No action taken DISCHARGE INTRUCTIONS: Your discharge instructions / After Visit Summary (AVS) are important in guiding you through the recovery process . Do you have any questions related to your discharge instructions? No Do you have all the necessary equipment and supplies at home ? Yes ACTION TAKEN: No action required I would like to help you schedule a hospital follow-up vir tual or telephone visit with your PCP. This is a great way for you to connect with your provider to ensure you have safely transitioned h ome. If you are agreeable, I will send your request to a machine container washer who will contact and assist you with that appointment. This will give you an oppor tunity to ask any questions or address any concerns you may have with your PCP. Inform the patient that if they have any questions or concerns prior to that appointment, to call their PCP's office right away. ACTION TAKEN: No action required, patient already has an appointment sched ed. CHILD SPECIALIST: Patient MyChart status is: Declined Thank you for taking the time to talk with me to day. We want to work with you to ensure that we are keeping you healthy and out of the h ospital. Our team would like to stay connected with you to make sure you are f eeling well. I am inviting you to complete a short questionnaire th at will be sent to you via [employer] once a week for the next few weeks. [employer] is the best way for us to communicate about your he alth and well-being in between physician visits and telephone calls. This questionnaire is designed to check in on how you are feeling and if certain symptoms are impr oving or getting worse. Your treatment team will review your answers and then follow up if we notice any concerning changes in your symptoms. The questionnaire will come to you through your [employer] account and will replace the need for us to call you each week. May I sign you up for this? No, reason: I don't like using [employer] ACTION TAKEN: No action - patient declines News Clipping Cutter. Ent er next patient outreach date for the following week on the same day of the week as kareem mtz in the Track Pt Outreach. Your doctor would like us to remind you of the recomme ndations regarding the coronavirus (Covid19) outbreak: ? Avoid public places as much as possible. ? Avoid close contact (within 6 feet) with others you don?t live with, especially if they are sick. ? Stay home if you are sick. ? Wash your hands regularly for at least 20 seconds with soa p and water. ? Wear a cloth mask in public places to help reduce communit y spread. ? Do not go to your Doctor?s office unless instructed to do so. For any non-emergency symptoms, call your Doctor?s office to get instructions on how to manage (we might recommend a telephone or virtual visit). Fo r emergency symptoms, proceed to Emergen cy Department as usual but inform them of cough and fever symptoms MARCELA if present (or call on the way if possib le). Allergies As of Date: 01/30/2020 (No Known Allergies) Date Reviewed: 01/29/2020 Reviewed by: Ozzie (Rn) BENITEZ Perez - Fully Assessed Reason for Visit: Transition Of Care [3569] Cmt: D/C [facility] on January 29, 2020 Prescriptions as of 01/30/2020 Sig: LISINOPRIL 5 MG TABLET Take 1 tablet by mouth once d* METOPROLOL TARTRATE 25 MG TAB* 1 tablet by ORAL/FEEDING TUBE * METOPROLOL SUCCINATE ER 50 MG* Take 1 tablet by mouth once d * ASPIRIN 81 MG TABLET,DELAYED * Take 1 tablet by mouth once d * NITROGLYCERIN 0.4 MG SUBLINGU* Dissolve 1 tablet under the t * Problem List As Of Date 01/30/2020 Noted Resolved Incarcerated incisional hernia [K43.0] 11/04/2013 Obesity, Class III, BMI >= 40 (morbid obesity) *05/28/2017 More... 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 BHAKTI (obstructive sleep apnea) [G47.33] 01/27/2020 More... HTN (hypertension) [I10] 01/27/2020 More... Atrial fibrillation (HCC) [I48.91] 01/27/2020 More... HFrEF (heart failure with reduced ejection frac*01/28/2020 More... 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] 01/28/2020 Diabetes (HCC) [E11.9] 01/29/2020 Encounter Status:Closed by [facility] NETWORK NAVIGATOR, DENY MADERA on 02/03/20 therapy nt on 01-28 THERAPY NT HNO ID: [id number] Normal 01-29-2020 [facility] Author: Nona (Pt) [facility] Service: Physical Therapy ([id number]) Author Type: Physical Therapist Type: Therapy (PT/OT/Speech/Resp) Filed: 01/29/2020 9:15 AM Note Text: Physical Therapy Evaluation SERVICE DATE: 01/29/2020 SERVICE TIME: 849 to 905 ROOM: [place] [address] Recommended Discharge Disposition: Home PT Recommendations to Nursing: Ambulate without device;To ba thro;In halls PT 6 Clicks Score: 24 ASSESSMENT : This patient was admitted for stroke, has the past medical h istory of blind in the right eye and obesity impacting current functio nal level, as well as the social factors complicating the discharge of can not read or write but his is able to. This patient is at baseline f unctioning of walking independent and will be safe for home. At this time he has not further acute physical therapy needs. Patient Disposition at Start of Session: OOB in Chair Patient Disposition at End of Session: OOB in Chair Tolerated Full Session Physical Therapy Problem List: Education Deficit;Safety Defi cits Patient /Caregiver Goals: Go Home Goals for Plan of Care: Rehab Potential: Good PLAN: Treatment Frequency (times per week): Discontinue Therapy Se rvices Reasons Therapy Services Discontinued: No skilled needs Current admission Treatment Interventions: Education Plan of Care developed with: Patient TREATMENT INTERVENTIONS: Therapy Diagnosis: Abnormalities of gait and mobility-other Interventions Provided: Evaluation $ Evaluation-Low (67904) Billed Units: 1 unit History and examination of body systems see assessment secti on above. This patient?s clinical presentation is stable. The patient required a low complexity evaluation. Total Treatment Time (minutes): 16 SUBJECTIVE: Current Hospital Course: Chart reviewed; patient has a strok e thromic stroke with hemorrhagic conversion Relevant Past Medical History: HTN, BHAKTI, newly dx A fib, obe sity, TBI, R eye blindness Patient Report: Patient feels good and wants to go home. Home Environment Patient Lives With: Spouse Assistance Available: 24 Hour Entry To Home: Ramp Tub/Shower Type: shower with shower seat Laundry: shared, in mobile home Equipment Owned: Cane;Wheeled Walker;Shower Chair;Grab Bars- Shower( uses DME, pt doesn't) Prior Functional Level: Within Functional Limits Prior Functional Level Comments: indep at home, likes to julia philip and marcie, is out in [place], no recent falls OBJECTIVE: Range of Motion: WFL Strength: WFL CURRENT FUNCTIONAL STATUS: Current Functional Mobility Assist Level Additional Informat ion Rolling Independent Supine to Sit Independent Sit to Supine Independent Scooting Sit to Stand Independent Stand to Sit Independent Bed to Chair Toilet/Commode Gait Independent Gait Device: None Gait Distance (feet): 120 x 2 Stairs Curb Step Car Transfer General Deviations/Observations: Arabella decreased Balance: Static Sitting;Dynamic Sitting;Static Standing;Deyanira tomeka Standing Static Sitting Balance: Good Patient able to maintain balanc e without handhold support, limited postural sway Dynamic Sitting Balance: Good Patient accepts moderate chall enge, able to maintain balance while picking up object off floor Static Standing Balance: Good Patient able to maintain antoine ce without handhold support, limited postural sway Dynamic Standing Balance: Good Patient accepts moderate chal lenge, able to maintain balance while picking up object off floor JH-HLM: 7: Walk 25 feet or more Functional Performance Test Functional Performance Test: Modified 4-Item Dynamic Gait In dex Brief Dynamic Gait Index Gait on level surface: 3 Gait with speed changes: 3 Horizontal head turns: 3 Vertical head turns: 3 Total Score: 12 Please see discipline specific clinical documentation [facility] for complete details for this therapy evaluation/treatment. SIGNATURE: Nona Godoy PT PATIENT NAME: Jose Cyr DATE: January 29, 2020 TIME: 9:10 AM THERAPY NT HNO ID: [id number] Normal 01-29-2020 [facility] Author: Yas (Otr/L) [facility] Service: Occupational Therapy ([id number]) Author Type: Occupational Therapist Type: Therapy (PT/OT/Speech/Resp) Filed: 01/29/2020 9:52 AM Note Text: Occupational Therapy Evaluation SERVICE DATE: 01/29/2020 SERVICE TIME: 08 to 0848 ROOM: [place] [address] Recommended Discharge Disposition: Outpatient Occupational T herapy Recommended Discharge Disposition Comments: For dominant R U E discoordination, motor planning, high level cognition and sa fety OT Recommendations to Nursing: To Bathroom for ADL?s /and or Toileting;OOB for meals;Transfer to Chair(supervision for safety) OT 6 Clicks Score: 18 ASSESSMENT: Patient presents with deficits in feeding, grooming, UE bath ing/dressing, LE bathing/dressing, functional transfers, functional mobili ty, decreased safety awareness, and decreased insight to deficits after ad mitted for stroke with hemorrhagic conversion. Requires skilled OT for to maximize independence with out of bed activites of daily living, nehemiah ding activity tolerance, right upper extremity fine motor control and maisha r planning, and high level cognition. Patient Disposition at Start of Session: OOB in Chair;Call B ell in Reach Patient Disposition at End of Session: OOB in Chair;Call Bel l in Reach Tolerated Full Session Occupational Therapy Problem List: Education Deficit;Safety Deficits;Impaired Self Care;Decreased Activity Tolerance;Fun ctional Mobility Impairment;Motor Planning Difficulties;Impaired Fin e Motor Skills Patient /Caregiver Goals: Go Home;Care For Self Goals for Plan of Care: Able to perform HEP with: Verbal Cues Only(theraputty HEP fo r [facility]) Grooming with: Modified Independent Upper Body Bathing with: Modified Independent Upper Body Dressing with: Modified Independent Lower Body Bathing with: Modified Independent Lower Body Dressing with: Modified Independent Tolerate (minutes of functional activity): 25(standing activ ity tolerance) Functional Activity with: Modified Independent Additional Goal 1: Pt to demo good safety with standing ADLs Additional Goal 2: Pt to score within the minimal range of c ognitive impairment on the SBT Rehab Potential: Excellent PLAN: Treatment Frequency (times per week): 5(3-5) Current admission Treatment Interventions: Education;Self Care / Home Manageme nt;Functional Mobility Training;Balance Training;Cognitive Training;Streng thening Plan of Care developed with: Patient TREATMENT INTERVENTIONS: Therapy Diagnosis: Reduced mobility-other;Decreased activiti es of daily living (ADL);Signs and Symptoms Involving Cognitive Function s and Awareness;Lack of coordination-other Interventions Provided: Evaluation;Therapeutic Exercise (961 10) $ Evaluation-Moderate (19477) Billed Units: 1 unit OT Evaluation Moderate Complexity: Occupational Profile - Extended review of patient's medical record completed including patient's physical, cognitive, and psych o-social history (please see current hospital course of evaluation). Occupational Performance - Pt presents with deficits in feed ing, grooming, UE bathing/dressing, LE bathing/dressing, functional transfe rs, functional mobility, decreased safety awareness, decreased insight into deficits Complexity in Clinical Decision Making - The extent of clini dominic reasoning was moderate, several treatment options present for the mariajose ent, need for modification during the evaluation was minimal/moderate, com orbidities affecting occupational performance: HTN, BHAKTI, newly dx A fib , obesity, TBI, R eye blindness Therapeutic Exercise ([id number]) Treatment Minutes: 16 1 unit Skilled Intervention(s): Facilitated fine motor control exs in room against gravity and edu on functional use like writing, turn ing pages of a paper, etc. Provided pen frame builder to have pt hold pen easier. Pt attempts to complete minicog but unable to complete due to not being abl e to hold pen in his hand/poor motor control. Pt can write name with effor t, much improved with pencil frame builder. Provided theraputty and had pt pr actice exs for right upper extremity coordination and manipulation. Provide d handouts with pictures to increase pt understanding and adherence. Total Timed Code Treatment Minutes: 16 Total Treatment Time (minutes): 37 SUBJECTIVE: Current Hospital Course: Chart reviewed; Patient is a 64 year old male presents to [facility] NSICU as del rosario sfer from [place] ED with stroke-like symptoms and possible acute infa rct w/ hemorrhagic transformation on CT brain. Patient states on , he developed tunnel vision and balance issues. Then he develope d slurred speech and aphasia. He reports attempting to get up and he j ust fell to the ground. +Acute L parieto occipital infarct w/ hemorrhagic conversion No neurosurgical intervention +CT brain showed evidence of petechial parenchymal hemorrhag e in the superior left occipital lobe, small petechial hemorrhage and right frontal lobe and small acute infarct in the left parietal lobe. Reason for Occupational Therapy Consult: Progressive mobilit y protocol Relevant Past Medical History: HTN, BHAKTI, newly dx A fib, obe sity, TBI, R eye blindness Patient Report: Im not trying to be mean I just want to go home and be with my family Pain: denies Home Environment Patient Lives With: Spouse Assistance Available: 24 Hour Entry To Home: Ramp Tub/Shower Type: shower with shower seat Laundry: shared, in mobile home Equipment Owned: Cane;Wheeled Walker;Shower Chair;Grab Bars- Shower( uses DME, pt doesn't) Prior Functional Level: Within Functional Limits Prior Functional Level Comments: Pt rpts he and his sha re driving/IADLs. Pt does his own ADLs. Pt is retired and start ed working at an early age so he never learned to read/write. OBJECTIVE: Cognition/Communication Deficits Orientation Deficits: Not oriented to Time;Not oriented to P lace Responsiveness: Alert;Awake Follows Commands: 1-step Commands Memory Deficits: Short Term Executive Function Deficits: Safety Awareness;Motor Planning ;Problem Solving;Insight to Deficits;Judgement Judgement Deficit: Moderate impairment Insight to Deficits: Moderate impairment Problem Solving Deficit: Moderate impairment Motor Planning Deficit: Minimal impairment Safety Awareness Deficit: Minimal impairment Cognitive Clinical Tests and Screens: (attempted mini cog, p t can't write with dominant UE well) Psychosocial Deficit: Pt perseverates on getting D/C from th e hosptial CURRENT FUNCTIONAL STATUS: Current Activities of Daily Living Assist Level Feeding Contact Guard Assistance Grooming Contact Guard Assistance Bathing Upper Body Contact Guard Assistance Bathing Lower Body Minimal Assistance Dressing Upper Body Contact Guard Assistance Dressing Lower Body Minimal Assistance Toileting Contact Guard Assistance Functional Mobility Assist Level Rolling Supine to Sit Sit to Supine Scooting Sit to Stand Stand By Assistance Stand to Sit Stand By Assistance Bed to Chair Toilet/Commode Stand By Assistance Functional Mobility Stand By Assistance Functional Mobility Comments: to bathroom and pot washer Dominance: Right Range of Motion: WFL Strength: WFL Coordination Deficits: In hand manipulation;Finger oppositio n;Finger to nose Finger to Nose Impairment: Right Finger Opposition Impairment: Right Hand Manipulation Impairment: Right Edu pt on fall prevention / up with assistance. Pt left in r oom in chair with calllight within reach. Please see discipline specific clinical documentation [facility] for complete details for this therapy evaluation/treatment. SIGNATURE: JUJU Marquez/Sheri PATIENT NAME: Jose Cyr DATE: January 29, 2020 TIME: 9:01 AM progress on 2020-01 PROGRESS HNO ID: [id number] Normal 01-29-2020 [facility] Author: Neida Fernandez MD General Service: Hospital Medicine Medical Author Type: Resident Center Type: Progress Notes ([id number]) Filed: 01/29/2020 11:38 AM Note Text: Attestation signed by Hector Gallegos at 01/29/2020 3:32 PM Attending Note I personally saw and examined the patient on 01/29/20. I rev iewed the resident's note. I agree with the resident's assessment and plan unless otherwise noted. Signature: Hector Gallegos, DO Date: 01/29/2020 Time: 3:32 PM Pager: [phone] SERVICE DATE: 01/29/2020 SERVICE TIME: 11:37 AM House Medicine Service Progress Note From 6 AM to 5 PM: You may reach the House Medicine it intern c urrently assigned to this patient by finding their pager number on [facility] treatment team (they will be assigned as the it intern or resident). It i s the last four digits in the phone number beginning with ([phone] ). We encourage the use of [employer] Secure Chat. Otherwise, please contact the House Med it intern at #[phone] for any concerns. Patient: Jose Cyr Date of : 1955 (64 year old) Date of Admission: 01/27/2020 Date of Service: 01/29/2020 Time of Service: 6:56 AM Brief HPI: Mr Cyr is a 64 year old male with past medical h istory of: - obesity - obstructive sleep apnea, noncompliant w/ CPAP at home - HTN - newly diagnosed Atrial fibrillation by PCP on 01/24 Who was transferred to us from [place] ED due to stroke like symptoms described as blurry / tunnel-like vision and balance issue s which progressed to slurred speech and aphasia. On admission, he h ad CT imaging findings consistent w/ acute ischemic infarct w/ possible he morrhagic conversion. CT Angiogram negative for stenosis. Stroke belie kristian to possibly be cardioembolic given the new onset Atrial fibrill ation. He was started on aspirin and statin. TTE done yesterday showed EF of 45% with diffuse hypokinesia. (deemed technically a poor study). Card iology also consulted for new onset Atrial fibrillation. He was started on beta jameel. OAC was held due to risk of hemorrhagic transformat ion. Plan is to perform a repeat CT brain to make sure there is stability and no further hemorrhagic transformation. Per NSICU attending, may anticoagulate in 3 weeks. Subjective SUBJECTIVE Interval events: Patient wants to leave AMA. No new focal ne urologic deficits. ROS Objective OBJECTIVE Medications: Current Facility-Administered Medications Medication Dose Route Frequency Provider Last Rate Last Dose - atorvastatin 40 mg tab(s) (LIPITOR) 40 mg ORAL AT BEDTIME Geovanna (Res) Ojiaku, DO 40 mg at 01/28/20 2204 - lisinopril 5 mg tab(s) (ZESTRIL, PRINIVIL) 5 mg ORAL DAILY Geovanna (Res) Ojiaku, DO 5 mg at 01/28/20 1150 - docusate 100 mg oral liquid (DIOCTO, COLACE) 100 mg ORAL/F EEDING TUBE BID Geovanna (Res) Ojiaku, DO 100 mg at 01/28/20 2204 - bisacodyl 10 mg suppository (DULCOLAX) 10 mg RECTAL DAILY PRN Geovanna (Res) Ojiaku, DO - acetaminophen 650 mg tab(s) (TYLENOL) 650 mg ORAL/FEEDING TUBE q 4 H PRN Geovanna (Res) Ojiaku, DO - oxyCODONE IR 5-10 mg tab(s) (ROXICODONE) 5-10 mg ORAL/FEED ING TUBE q 4 H PRN Geovanna (Res) Ojiaku, DO - perflutren lipid microspheres 1.1 mg/mL 1.3 mL injection ( DEFINITY) 1.3 mL INTRAVENOUS DIRECTED PRN Geovanna (Res) Ojiaku, DO - metoprolol tartrate (short acting) 25 mg tab(s) (LOPRESSOR ) 25 mg ORAL/FEEDING TUBE q 12 H Geovanna (Res) Ojiaku, DO 25 mg at 2204 - aspirin 81 mg chewable tab(s) 81 mg ORAL/FEEDING TUBE BILL Y Geovanna (Res) Ojiaku, DO 81 mg at 01/28/20 0806 - heparin 5,000 Units injection 5,000 Units SUBCUTANEOUS q 8 H Geovanna (Res) Ojiaku, DO 5,000 Units at 01/29/20 0536 Vital Signs: BP 122/72 Pulse 83 Temp 36.5 ?C (97.7 ?F) ( Oral) Resp 18 Ht 180.3 cm (5' 11) Wt 130.1 kg (286 lb 14.4 oz ) SpO2 96% BMI 40.01 kg/m? Physical Exam Performed: Physical Exam Constitutional: Appearance: Normal appearance. He is obese. HENT: Head: Normocephalic and atraumatic. Eyes: Extraocular Movements: Extraocular movements intact. Pupils: Pupils are equal, round, and reactive to light. Cardiovascular: Rate and Rhythm: Normal rate and regular rhythm. Pulmonary: Effort: Pulmonary effort is normal. Breath sounds: Normal breath sounds. Musculoskeletal: Normal range of motion. General: No tenderness. Skin: General: Skin is warm and dry. Neurological: General: No focal deficit present. Mental Status: He is alert and oriented to person, place, an d time. Lines, Drains, and Airways Line Peripheral 01/27/20 Assessment Right Antecubital 18 Gauge 2 days Data: Component Latest Ref Rng AND Units 01/28/2020 01/29/2020 Sodium 136 - 144 mmol/L 140 140 Potassium 3.7 - 5.1 mmol/L 3.6 (L) 3.6 (L) Chloride 97 - 105 mmol/L 103 103 CO2 22 - 30 mmol/L 24 25 Glucose 74 - 99 mg/dL 132 (H) 122 (H) BUN 9 - 24 mg/dL 19 21 Creatinine 0.73 - 1.22 mg/dL 0.97 1.01 Calcium 8.5 - 10.2 mg/dL 8.7 8.5 Anion Gap 9 - 18 mmol/L 13 12 Component Latest Ref Rng AND Units 01/28/2020 01/29/2020 WBC 4.23 - 9.07 thou/cmm 8.58 9.97 (H) RBC 4.63 - 6.08 mil/cmm 4.87 4.79 HGB 13.7 - 17.5 g/dL 13.4 (L) 13.0 (L) Hematocrit 40.1 - 51.0 % 41.8 41.5 MCV 83.2 - 95.6 fl 85.8 86.6 MCH 25.7 - 32.2 pg 27.5 27.1 MCHC 32.3 - 36.5 % 32.1 (L) 31.3 (L) RDW 11.6 - 14.4 % 13.5 13.4 RDW-SD 36.1 - 45.8 fl 41.9 42.0 Platelet Count 141 - 365 thou/cmm 292 271 MPV 8.7 - 12.0 fl 10.6 10.7 Seg Neutrophil % 52.4 60.2 Immature Grans % 0.10 0.30 Lymphocyte % 37.5 29.8 Monocyte % 6.3 7.1 Eosinophil % 3.0 2.1 Basophil % 0.7 0.5 Abs. Neut(Anc) 1.78 - 5.38 thou/cmm 4.50 6.00 (H) Immature Grans # 0.00 - 0.05 thou/cmm 0.01 0.03 Abs. Lymph 0.84 - 2.85 thou/cmm 3.22 (H) 2.97 (H) Abs. Holmes 0.30 - 0.82 thou/cmm 0.54 0.71 Abs. Eosin 0.04 - 0.54 thou/cmm 0.26 0.21 Abs. Baso 0.01 - 0.08 thou/cmm 0.06 0.05 Component Latest Ref Rng AND Units 01/29/2020 Magnesium 1.7 - 2.3 mg/dL 2.0 Phosphorus 2.7 - 4.8 mg/dL 3.2 See other results in EHR. Assessment AND Plan * Acute ischemic stroke (HCC) Assessment: -CT brain showed evidence of petechial parenchymal hemorrhag e in the superior left occipital lobe, small petechial hemorrhage and right frontal lobe and small acute infarct in the left parietal lobe. - acute ischemic infarct possibly cardioembolic in the setti ng of new onset Afib Plan: - C/W aspirin, statin. Outside window for tpA - TTE showing no PFO but w/ R atrial dilatation and reduced EF - PT/OT recommended home - Will need to ff up with Neurology as an outpatient in 3 we eks. May need repeat brain imaging to check stability of hemorrhage. Atrial fibrillation (HCC) Assessment: -New onset atrial fibrillation, rate controlled -[id number] risk score is 3 -Echocardiogram showed evidence of ejection fraction of 45% Plan: - C/W with Metoprolol 25 mg twice daily - ff up ct brain imaging, will need to be started with OAC i n 3 weeks HFrEF (heart failure with reduced ejection fraction) (HCC) Assessment: -Echocardiogram showed evidence of new onset heart failure, ejection fraction is 45% -Cardiology is following, on metoprolol 25 mg twice daily an d lisinopril 5 mg daily -Keep potassium > 4, magnesium > 2 HTN (hypertension) - BP controlled - C/W lisinopril 5 mg BHAKTI (obstructive sleep apnea) - needs to have CPAP at night Cytotoxic brain edema (HCC) - Neurosx consulted. No acute intervention needed. Medication and Non-Pharmacologic VTE Prophylaxis/Anticoagula nts Anticoagulant AND Antiplatelet Medications (From admission, onward) Start Dose Route Frequency Ordered Stop 01/28/20 0900 aspirin 81 mg chewable tab(s) 81 mg PO/FT DAILY 01/27/20 1153 -- 01/28/20 0600 heparin 5,000 Units injection 5,000 Units SUBCUTANEOUS EVERY 8 HOURS 01/27/20 1153 -- 01/28/20 0600 activity - mobilize patient ([place]) 01/27/20 0245 pneumatic compression stockings ([place]) VTE Prophylaxis: VTE prophylaxis appropriate Plan of care discussed with: Provider, RN, Patient SIGNATURE: Neida Fernandez MD PATIENT NAME: Jose Cyr DATE: January 29, 2020 TIME: 11:37 AM PAGER/CONTACT #: [phone] PROGRESS HNO ID: [id number] Normal 01-29-2020 [place] Author: Rayna Bojorquez) NORMA Atkinson General Service: Neurosurgery Medical Author Type: Physician Recycle Driver Center Type: Progress Notes ([id number]) Filed: 01/29/2020 8:43 AM Note Text: Neurosurgery Progress Note SERVICE DATE: 01/29/2020 SUBJECTIVE: Up in chair without complaints. Wants to leave. States wants his clothes, his , his tobacco. Ambulating about the room without ass ist. Eating well. No dizziness, n/v. OBJECTIVE: Vitals: Temp (24hrs), Av.6 ?C (97.8 ?F), Min:36.2 ?C (97.2 ?F), Max:36.7 ?C (98.1 ?F) BP 133/85 Pulse 85 Temp 36.7 ?C (98.1 ?F) (Oral) Resp 18 Ht 180.3 cm (5' 11) Wt 130.1 kg (286 lb 14.4 oz) SpO2 95% BMI 40.01 kg/m? O2 Therapy: Room Air IANDO: Date 01/28/20699 - 01/29/20 0659 01/29/20 07 - 01/30/20 0659 Shift 8259-9702 3212-0928 6964-8233 24 Hour Total 7271-2374 7116-3320 0748-7672 24 Hour Total INTAKE PO 720 720 PO 720 720 Shift Total 720 720 OUTPUT Urine Urine Incontinence/Not Saved 1 x 1 x Shift Total Weight (kg) 130.7 130.1 130.1 130.1 130.1 130.1 130.1 130.1 MEDICATIONS Current Facility-Administered Medications Medication Dose Route Frequency - atorvastatin 40 mg tab(s) (LIPITOR) 40 mg ORAL AT BEDTIME - lisinopril 5 mg tab(s) (ZESTRIL, PRINIVIL) 5 mg ORAL DAILY - docusate 100 mg oral liquid (DIOCTO, COLACE) 100 mg ORAL/F EEDING TUBE BID - bisacodyl 10 mg suppository (DULCOLAX) 10 mg RECTAL DAILY PRN - acetaminophen 650 mg tab(s) (TYLENOL) 650 mg ORAL/FEEDING TUBE q 4 H PRN - oxyCODONE IR 5-10 mg tab(s) (ROXICODONE) 5-10 mg ORAL/FEED ING TUBE q 4 H PRN - perflutren lipid microspheres 1.1 mg/mL 1.3 mL injection ( DEFINITY) 1.3 mL INTRAVENOUS DIRECTED PRN - metoprolol tartrate (short acting) 25 mg tab(s) (LOPRESSOR ) 25 mg ORAL/FEEDING TUBE q 12 H - aspirin 81 mg chewable tab(s) 81 mg ORAL/FEEDING TUBE BILL Y - heparin 5,000 Units injection 5,000 Units SUBCUTANEOUS q 8 H Labs: Recent Labs 01/29/20 0323 01/28/20 0350 01/27/20 1410 01/26/20 1535 NA 140 140 -- < > 141 K 3.6* 3.6* -- < > 3.6* CHLOR 103 103 -- < > 101 CO2 25 24 -- < > 25 BUN 21 19 -- < > 19 CREAT 1.01 0.97 -- < > 1.08 GLUC 122* 132* -- < > 128* ANION 12 13 -- < > 15 CA 8.5 8.7 -- < > 9.1 MG 2.0 2.4* -- < > -- P 3.2 3.2 -- < > -- ALB -- -- -- -- 4.0 AST -- -- -- -- 24 ALT -- -- -- -- 13 ALKPHOS -- -- -- -- 72 TBILI -- -- -- -- 1.1 WBC 9.97* 8.58 -- < > 9.91 HB 13.0* 13.4* -- < > 14.6 HCT 41.5 41.8 -- < > 45.6 PLT 271 292 -- < > 315 INR -- -- 1.06 -- -- < > = values in this interval not displayed. Exam: GENERAL: No distress, Alert, anxious NEURO: orientedx3; speech clear and fluent; msp intact - no arm drift HEENT: normocephalic, atraumatic, no facial droop; OD opaque , left pupil reactive LUNGS: Unlabored breathing ASSESSMENT AND PLAN: Active Hospital Problems Diagnosis Date Noted - HFrEF (heart failure with reduced ejection fraction) ([facility]) 01/28/2020 - Cytotoxic brain edema ([facility]) 01/28/2020 - Brain compression ([facility]) 01/28/2020 - BHAKTI (obstructive sleep apnea) 01/27/2020 - HTN (hypertension) 01/27/2020 - Atrial fibrillation ([facility]) 01/27/2020 - Acute ischemic stroke ([facility]) 01/27/2020 64 year old male thrombotic stroke with hemorrhagic conversi on - neuro stable - nonsurgical mgmt - pt threatening to leave AMA - ok by neurosurgical standpoint to be discharged home - hold Eliquis until f/u CTH - pt does not need neurosurgery f/u - he needs neurology f/u with CTH and clearance for AC - will so SIGNATURE: NORMA Ziegler PATIENT NAME: Jose Cyr DATE: January 29, 2020 TIME: 8:37 AM Pager: [phone] plan of care on PLAN OF CARE HNO ID: [id number] Normal 01-29-20 20 [facility] Author: Veronica Cyr (Pharmacist) [facility] Service: Pharmacy (0 [phone]) Author Type: Pharmacist Type: Plan of Care Filed: 01/29/2020 1:09 PM Note Text: Reasons for Delay Delivery Processes Identified: Prior Authorization/Insurance Metoprolol tartrate needs prior auth. Called the floor and t he nurse asked us to send the prior auth information. I did call the [facility] pharmacy and the patient picked up the metoprolol succinate on [address] [employer] BEDSIDE DELIVERY SURVEY 1. Patient to use [facility] Bedside Delivery - YES Insurance Information as follows: 2. Insurance card on file - YES 3. Credit card for payment - N/A Patient has 2 prescriptions: Metoprolol Tartrate 25mg Lisinopril 5mg Total: $0 Please call Linda [phone] or Kelly [phone] upon discharge. Pharmacy Discharge Medication Service: This patient has elected to receive their discharge prescrip tions through the [facility] Bedside Prescription Delivery program. The prescriptions are currently being processed. A follow-up not e will be entered once the prescriptions have been filled and delivere d to the patient. Please contact me with any questions or updates to the patient's discharge medications. Kelly Lopez (Breaker Up Machine Operator) DCT Contact Info: [phone] phosphorous blood o n 2020-01-29 Phosphate [Mass/Vol] 3.2 2.7-4.8 mg/dL Normal 0 [facility] ([id number]) Comment: Performed By: #### MAG #### [facility] [address] [place] [address] nursing prog on NURSING HNO ID: [id number] Normal 01-29-2020 [place] PRO Author: Ozzie (Rn) BENITEZ Perez General Service: ? Medical Author Type: Registered Nurse Center Type: Nursing Progress Note ([id number]) Filed: 01/29/2020 1:14 PM Note Text: Nursing Progress Note Patient Name: Jose Cyr Patient Location: [id number] Daily Note:Reviewed discharge instructions with pt. Pt state s understanding of instructions. This note was completed by: Ozzie Perez, BENITEZ mdrd gfr on 2020-01 GFR/1.73 sq M >60 >60mL/min/1.73m2 mL/min/{1.73_m2} Normal [facility] non-blacks MDRD (000 00) (S/P/Bld) [Vol rate/Area] Comment: Result Comment: If the patie nt is , multiply the result by 1.210. Performed By: #### GFR #### [place] [address] magnesium blood on 2020-01-29 Magnesium [Mass/Vol] 2.0 1.7-2.3 mg/dL Normal 0 [facility] ([id number]) Comment: Performed By: #### MAG #### [place] [id number] hemogram/diff on 27-01-21 Abs Immature Grans 0.03 0.00-0.05 thou/cmm Normal 01-29-2020 [facility] (00 000) Comment: Performed By: #### TROPT ### # [place] [address] Abs Neut (ANC) 6.00 1.78-5.38 thou/cmm High 01-29-2020 [facility] ([id number]) Comment: Performed By: #### TROPT ### # [place] [address] Abs. Baso 0.05 0.01-0.08 thou/cmm Normal 01-29-2020 [facility] ([id number]) Comment: Performed By: #### TROPT ### # [facility] [address] [place], [place] [address] Abs. Holmes 0.71 0.30-0.82 thou/cmm Normal - [facility] ([address]454) Comment: Performed By: #### TROPT ### # [facility] [address] [place] [id number] Basophils/100 WBC (Bld) 0.5 % Normal 2019 [facility] (57540) Comment: Performed By: #### TROPT ### # [facility] [address] [place] [address] Eosinophils (Bld) 0.21 0.04-0.54 thou/cmm Normal 01-29-2020 [facility] [#/Vol] [facility] Sys tem ([address]281) Comment: Performed By: #### TROPT ### # [place] [address] Eosinophils/100 WBC (Bld) 2.1 % Normal - [facility] ([address]442) Comment: Performed By: #### TROPT ### # [place] [address] Erythrocyte distribution 13.4 11.6-14.4 % Normal 01-28 [facility] width (RBC) [Ratio] System (66525) Comment: Performed By: #### TROPT ### # [place] [address] Hematocrit (Bld) [Volume 41.5 40.1-51.0 % Normal 01-28 [facility] fraction] System (00 000) Comment: Performed By: #### TROPT ### # [facility] [address] [place] [id number] Hemoglobin (Bld) [Mass/Vol] 13.0 13.7-17.5 g/dL Low [facility] (00 000) Comment: Performed By: #### TROPT ### # [place] [address] Immature Grans 0.30 % Normal 01-29-2020 [facility] (61359) Comment: Performed By: #### TROPT ### # [facility] [address] [place], [place] [address] Lymphocytes (Bld) [#/Vol] 2.97 0.84-2.85 thou/cmm High - [facility] (00 000) Comment: Performed By: #### TROPT ### # [facility] [address] [place], [place] [address] Lymphocytes/100 WBC (Bld) 29.8 % Normal 01-09 [facility] (52045) Comment: Performed By: #### TROPT ### # [facility] [address] [place], [place] [address] MCH (RBC) [Entitic mass] 27.1 25.7-32.2 pg Normal 01-28 [facility] (00 000) Comment: Performed By: #### TROPT ### # [facility] [address] [place], [place] [address] MCHC (RBC) [Mass/Vol] 31.3 32.3-36.5 % Low 01-29-20 20 [facility] (20455) Comment: Performed By: #### TROPT ### # [facility] [address] [place], [place] [address] MCV (RBC) [Entitic vol] 86.6 83.2-95.6 fl Normal 2019 [facility] (00 000) Comment: Performed By: #### TROPT ### # [facility] [address] [place], [place] [address] Monocytes/100 WBC (Bld) 7.1 % Normal 2019 [facility] (16210) Comment: Performed By: #### TROPT ### # [facility] [address] [place], [place] [address] Platelet mean volume (Bld) 10.7 8.7-12.0 fl Normal [facility] [Entitic vol] System (60938) Comment: Performed By: #### TROPT ### # [facility] [address] [place], [place] [address] Platelets (Bld) [#/Vol] 271 141-365 thou/cmm Normal 2019 [facility] (00 000) Comment: Performed By: #### TROPT ### # [facility] [address] [place], [place] [address] RBC (Bld) [#/Vol] 4.79 4.63-6.08 mil/cmm Normal 01-29-2020 [facility] (00 000) Comment: Performed By: #### TROPT ### # [facility] [address] [place], [place] [address] RDW SD 42.0 36.1-45.8 fl Normal 01-29-2020 [facility] (76942) Comment: Performed By: #### TROPT ### # [facility] [address] [place], [place] [address] Seg Neutrophil 60.2 % Normal 01-29-2020 [facility] (96238) Comment: Performed By: #### TROPT ### # [facility] [address] [place], [place] [address] WBC (Bld) [#/Vol] 9.97 4.23-9.07 thou/cmm High 01-29-2020 [facility] (36833) Comment: Performed By: #### TROPT ### # [place] [address] consult prog on CONSULT PROG HNO ID: [id number] Normal 01-29-20 20 [facility] Author: Moshe Bojorquez) [facility] Service: Neurology ICU ([id number]) Author Type: Physician Recycle Driver Type: Consult Progress Note Filed: 01/29/2020 11:58 AM Note Text: PROGRESS NOTE NEURO STROKE SERVICE DATE: 01/29/2020 SERVICE TIME: 11:46 AM Subjective INTERVAL HISTORY: Patient in chair getting dressed in person al clothes. He has no complaints for me today and no symptoms. He is eag er to go home and states that his will be her at noon to pick him up . MEDICATIONS Current Facility-Administered Medications Medication Dose Route Frequency - docusate 100 mg oral liquid (DIOCTO, COLACE) 100 mg ORAL/F EEDING TUBE BID - bisacodyl 10 mg suppository (DULCOLAX) 10 mg RECTAL DAILY PRN - acetaminophen 650 mg tab(s) (TYLENOL) 650 mg ORAL/FEEDING TUBE q 4 H PRN - oxyCODONE IR 5-10 mg tab(s) (ROXICODONE) 5-10 mg ORAL/FEED ING TUBE q 4 H PRN - perflutren lipid microspheres 1.1 mg/mL 1.3 mL injection ( DEFINITY) 1.3 mL INTRAVENOUS DIRECTED PRN - metoprolol tartrate (short acting) 25 mg tab(s) (LOPRESSOR ) 25 mg ORAL/FEEDING TUBE q 12 H - aspirin 81 mg chewable tab(s) 81 mg ORAL/FEEDING TUBE BILL Y - heparin 5,000 Units injection 5,000 Units SUBCUTANEOUS q 8 H - atorvastatin 40 mg tab(s) (LIPITOR) 40 mg ORAL AT BEDTIME - lisinopril 5 mg tab(s) (ZESTRIL, PRINIVIL) 5 mg ORAL DAILY Objective PHYSICAL EXAM Vital Signs: BP 133/85 Pulse 85 Temp 36.7 ?C (98.1 ?F) (Oral) Resp 18 Ht 180.3 cm (5' 11) Wt 130.1 kg (286 lb 14.4 oz) SpO2 95% BMI 40.01 kg/m? NEUROLOGICAL: LOC: 0 - alert and responsive 0 LOC Questions: 0 - both correct 0 LOC Commands: 0 - both correct 0 LOC Normal Gaze: 0 - normal gaze 0 Visual Kendall: 0 - no visual loss 0 Facial Palsy: 0 - normal 0 Motor Left Arm: 0 - no drift 0 Motor Right Arm: 0 - no drift 0 Motor Left Le - no drift 0 Motor Right Le - no drift 0 Limb Ataxia: 0 - no ataxia (or aphasic, hemiplegic) 0 Sensory: 1 - mild to moderate unilateral loss but patient aw are of touch (or aphasic, confused) 1 Language: 0 - normal 0 Dysarthria: 0 - normal 0 Extinction/Neglect: 0 - normal, none detected (or visual los s alone) 0 Total Daily NIHSS: 1 (01/29/20 1139 : Moshe Soriano (Pa)) 1 MENTAL STATUS: Alert, oriented to person, place and time and Follows commands CRANIAL NERVES: PERRLA, EOM's intact, Visual kendall intact t o confrontation, Extraocular movements intact, Facial sensatio n intact, Face symmetric, No facial droop or ptosis, Hearing intact to fing er rub bilaterally, No dysarthria, Palate elevates symmetrically, T ongue protrudes midline and Shoulder shrug intact and symmetric MOTOR: No drift and Normal tone MOTOR STRENGTH: Upper and lower extremity 5/5 bilaterally SENSATION: diminished to RUE COORDINATION: Finger-to- nose-finger intact bilaterally GAIT: Normal-based DATA: Diagnostic tests reviewed for today's visit: Lipids, HbA1c, Recent Labs 01/27/20 0315 01/26/20 1535 CHOL 99 110 HDL 28 28* LDL 57 61 TG 72 106 HBA1C 7.3* -- Most recent labs and imaging results. MEDICAL EVENTS: No medical events have been recorded. STROKE 9 CARE AND PREVENTION CHECKLIST 1. Is the patient currently on an ANTITHROMBOTIC medication (Antiplatelet or Anticoagulant): Aspirin Reason Antithrombotic not prescribed: ICH and/or hemorrhagic stroke 2. Does the patient have known AFIB/FLUTTER: Unspecified atr ial fibrillation Is the patient currently on anticoagulation: No Reason patient not on anticoagulation: Active bleeding Are there plans to start anticoagulation: Yes, plan to start anticoagulation in 3-4 weeks 3. Is the patient on a STATIN: None Reason for no statin: LDL less than 70mg/dL within 30 days 4. Is the patient on VTE prophylaxis: Mechanical prophylaxis ;No, pharmacological prophylaxis contraindicated Mechanical intervention type: Intermittent compression stock ing(s) Reason for no pharmacological VTE prophylaxis: Active bleedi ng 5. GLYCEMIC Control Medications: Not Diabetic 6. Stroke BP Goals: Other - see comment(SBP <160) Stroke BP Control: BP needs further management 7. Stroke IVF/Nutrition: Diet 8. TEMPERATURE Control: Normothermic 9. Does the patient need THERAPY: Yes Therapy involvement: PT;OT Stroke Care and Prevention (personally reviewed by MOSHE AMADOR PA-C): Daily Rounding Date: 01/29/20 Daily Rounding Time: 1143 PROBLEM LIST: Principal Problem: Acute ischemic stroke (HCC) POA: Yes Active Problems: BHAKTI (obstructive sleep apnea) POA: Yes HTN (hypertension) POA: Yes Atrial fibrillation (HCC) POA: Yes HFrEF (heart failure with reduced ejection fraction) (HCC) P OA: Yes Cytotoxic brain edema (HCC) POA: Yes Brain compression (HCC) POA: Yes Resolved Problems: * No resolved hospital problems. * Assessment/Plan Jose Cyr is a 64 year old, male, patient. 1) Left parieto occipital stroke with hemorrhagic conversion -hx afib, OAC on hold-- please due to resume for 3 weeks () -cont ASA until restarting OAC -LDL 57, stroke cardio embolic in nature and LDL < 70 and no critical stenosis, no statin needed at this time--- will d/c -HA1c-7.3- needs further management -Pt recommending home and OT recommending outpatient therapy -echo with EF 45 % and RA dilation -will need to follow up with neurology as outpatient informa tion in d/c instructions and fior request made. -no further neuro work up at this time. Will sign off. Stroke Mechanism Stroke Mechanism - LIP ENTRY ONLY Ischemic Stroke or TIA: Ischemic Stroke TOAST Mechanism ([facility]F-MODIFIED): Cardioembolism Cardioembolism: Atrial fibrillation/flutter Intracranial Hemorrhage: Intraparenchymal Intraparenchymal Hemorrhage: Other Total Daily NIHSS: 1 Imaging Ordered Today: None SIGNATURE: MOSHE SORIANO PA-C PATIENT NAME: Jose Cyr DATE: January 29, 2020 TIME: 11:46 AM PAGER/CONTACT #: [phone] case managem on CASE MANAGEM HNO ID: [id number] Normal 01-29-20 [facility] Author: Carrero (Sw) [facility] Service: Care Management ([id number]) Author Type: Hospital Internship Type: Care Mgt Progress Note Filed: 01/29/2020 1:04 PM Note Text: CARE MANAGEMENT DISCHARGE NOTE SERVICE DATE: 01/29/2020 SERVICE TIME: 1300 LOS: 2 days Admission Date: 01/27/2020 DISCHARGE ARRANGEMENT (list agency and phone number) Discharge Arrangement: Home Provider Name:Markus Woods III CAREGIVER ASSESSMENT: Caregiver is ready, willing and able to meet the patient's n eeds as recommended by the inter-professional team:: No Caregiver ne eded Does the patient have an acute stroke diagnosis, or has the patient had a stroke during this admission?: Unable to assess at this time Patient's transition needs and plan for meeting these needs: Return home HANDOFF COMMUNICATION: Handoff to: Primary Care Physician TRANSPORTATION ARRANGEMENTS: Transportation Arrangements: Car ADDITIONAL CONTACT RESOURCES: Pt form home with spouse patrol captain. OT recommending outpatient the rapy. Pt agreeable to states his spouse can help with transportation. Spouse to provide discharge transportation. SIGNATURE: BRENNAN Marcus PATIENT NAME: Jose Cyr DATE: January 29, 2020 TIME: 1:02 PM PAGER/CONTACT #: [phone] basic metabolic panel on 2020-01-29 Anion gap [Moles/Vol] 12 9-18 mmol/L Normal 01-29-20 20 [facility] ([id number]) Comment: Performed By: #### MAG #### [facility] [address] [place], [place] [address] Calcium [Mass/Vol] 8.5 8.5-10.2 mg/dL Normal 01-29-2020 [facility] ([id number]) Comment: Performed By: #### MAG #### [facility] [address] [place], [place] [address] Chloride [Moles/Vol] 103 97-105 mmol/L Normal 0 [facility] ([address]00) Comment: Performed By: #### MAG #### [facility] [address] [place], [place] [address] CO2 Blood 25 22-30 mmol/L Normal 01-29-2020 [facility] ([address]157) Comment: Performed By: #### MAG #### [facility] [address] [place], [place] [address] Creatinine [Mass/Vol] 1.01 0.73-1.22 mg/dL Normal 01-29-20 20 [facility] (00 000) Comment: Performed By: #### MAG #### [facility] [address] [place], [place] [address] Glucose [Mass/Vol] 122 74-99 mg/dL High 01-29-2020 [facility] ([id number]) Comment: Result Comment: The [place] [employer] (ADA) provides guidance for cutoff values for fastin g glucose and random glucose. The ADA defines fasting as n o caloric intake for at least 8 hours.Fasting plasma glucose results between 100 to 125 mg/dL indicate increased risk for diabetes (prediabetes). Fasting plasma glucose resul ts greater than or equal to 126 mg/dL meet the criteria for diagnosis of diabetes. In the absence of unequivocal hyper glycemia, results should be confirmed by repeat testing. In a patient with classic symptoms of hyperglycemia or hyperglycemic crisis, random plasma glucose results great er than or equal to 200 mg/dL meet the criteria for diagno sis of diabetes. Reference: Standards of Medical Care in Diabetes 2016; [place] [employer]. Diabetes Care. 2016;39(Suppl 1). Performed By: #### MAG #### [facility] [address] [place], [place] [address] Potassium [Moles/Vol] 3.6 3.7-5.1 mmol/L Low 01-29-20 [facility] ([id number]) Comment: Performed By: #### MAG #### [facility] [address] [place], [place] [address] Sodium [Moles/Vol] 140 136-144 mmol/L Normal 01-29-2020 [facility] ([id number]) Comment: Performed By: #### MAG #### [facility] [address] [place], [place] [address] Urea nitrogen [Mass/Vol] 21 9-24 mg/dL Normal 01-28 [facility] ([id number]) Comment: Performed By: #### MAG #### [facility] [address] [place], [place] [address] therapy nt on 01-27 THERAPY NT HNO ID: [id number] Normal 01-28-2020 [facility] Author: Lara ([facility]-Reading Aide) Angelito [facility]/MIXING SUPERVISOR Medical Center Service: Speech/Swallow ([id number]) Author Type: Speech Language Pathologist Type: Therapy (PT/OT/Speech/Resp) Filed: 01/28/2020 1:41 PM Note Text: Speech Therapy Speech Evaluation SERVICE DATE: 01/28/2020 SERVICE TIME: 1108 to 1126 ROOM: [id number] Nursing Recommendations: Reinforce use of cognitive strategi es Results and Recommendations Discussed With: Patient Recommended Discharge Disposition: Acute Rehab vs Outpatient Speech Therapy Justification For Post Acute Needs: Patient can tolerate 3 h ours of therapy per day;Living the community premorbidly;Good family support IMPRESSION: Patient demonstrates cognitive linguistic deficits which are negatively impacting the patient's ability to effectively communicate b asic ADL medical and social wants/needs with familiar and unfamiliar communication partners. Rehabilitation Precautions: Cognitive Linguistics Deficits ASSESSMENT: Tolerated Full Session - Patient in chair upon arrival, alert and able to participa te in therapy - Assessed speech, language, and cognitive skills: - Speech: Intelligibility: 90-100% to unfamiliar listener in known and unknown contexts Dysarthria/Apraxia: n/a - Language: See MAST results below Receptive: WFL Expressive: WFL - Cognition: See Cognitive Log results below Problem solving: Impaired Memory: Impaired [place] Aphasia Screening Test - note that Patient's [facility] mauro education is 8th grade with poor reading/writing, scores in those sections should be disregarded Expressive Index: Namin/10 Automatic Speech: 06/19 Repetition: 02/17 Writin Verbal Fluency 06/19 Receptive Index: Yes/No Accuracy: Object Recognition: 06/19 Following Instructions: 06/19 Reading Instructions: 0/10 Total Index: Expressive: 36/50 Receptive: 40/50 Total Score: 76/100 The Cognitive Log (Cog-Log) is designed to be a quick quanti tative measure of cognition status for use at the bedside with rehabilitati on inpatients. It is intended for individuals who have achieved consistent accurate orientation, such as measured by the Orientation Log (O-Log) . The Cog-Log can be used to document cognitive progress on a daily basis. All items are scored from 0 to 3 for a total possible score of 30. 3 = correct spontaneous response 2 = correct upon logical cueing (e.g., That was yesterday, so today must be...) 1 = correct upon multiple choice or phonemic cueing 0 = incorrect despite cueing, inappropriate response, or alaina ble to respond Stimulus Response/Score Date 2/3 Time 3/3 Name of Hospital 2/3 Repeat Address 0/3 20-1 3/3 Months Reversed 0/3 30 Seconds 2/3 [facility] 0/3 Go/No-Go 2/3 Address Recall 0 Total -Patient requires continued skilled Speech Therapy for cogni tive linguistic deficits Goals for Plan of Care: Cognitive Goals: Patient will improve functional auditory memory skills to 90 % accuracy given minimal cues so that the patient may apply safety prec autions for personal welfare. Patient will demonstrate use of simple problem solving skill s with 90% accuracy given minimal cues so that the patient may particip ate in personal discharge planning. Patient will demonstrate adequate return of knowledge of all compensatory strategies/instruction to effectively assist the patient in immediate cognitive linguistic skills. Patient /Caregiver Goals: Go To Rehab Speech Rehab Potential: Fair PLAN: Treatment Frequency (times per week): 2 Current admission Treatment Interventions: Cognitive-Linguistic Management Plan of Care Developed with: Patient TREATMENT INTERVENTIONS: Therapy Diagnosis: Cognitive deficits following cerebral inf arction Interventions Provided: Speech Language Eval ([id number]) $ Speech Language Eval ([id number]) Billed Units: 1 unit Total Treatment Time (minutes): 18 SUBJECTIVE: Current Hospital Course: Chart reviewed; Reason for admission: Patient is a 64 year old male with pas t medical history significant for HTN and BHAKTI (non compliant with CPAP at home). Patient was recently diagnosed with new onset Afib 01/24 by John STONE after presenting with episode of chest pain, nausea and dizziness and was found to be in Afib w/ RVR by EKG. Patient presents to [facility] as transfer from [place] ED with stroke-like symptoms and possible acute infarct w/ hemorrhagic transformation on CT brain. Patient states on , he developed tunnel vision and balance issues. Yesterday, he de veloped slurred speech and aphasia. He reports attempting to get up and he just fell to the ground. This prompted ER evaluation. Patient sta rohit he's been under significant stress lately with the passing of his brot her in November 2019 and he and his are currently in process of finding a house to move to [place]. He reports prior to Sunday, he was feeling 'f ine', 'no issues'. 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 He reports that he cannot read or write. H e denies fever, chills, cough, SOB, n/v/d, abdominal pain, syncope. At [place], patient initial NIH of 5 for mild dysarthria, on ly able to answer 1 question right, drift in RUE, and mild ataxia. By t he time of [facility] telestroke eval, NIH down to 1 for ataxia. CTH performed wit h findings of left parieto occipital hypodensity suggestive of ischemic st roke with hemorrhagic conversion vs possible mass w/ surrounding edema . Therefore patient transferred here for further evaluation and close mo nitoring. MRI Brain IMPRESSION: 1. Limited examination as detailed above. 2. Findings suggesting acute ischemic infarct with petechial hemorrhagic transformation in the superior left occipital lobe. There is effacement of sulci and mild mass effect on the left lateral ventricle. No midline shift. 3. Small area of petechial-type hemorrhage likely associated with a small area of acute ischemic infarct in the right frontal lo be. 4. Small acute ischemic infarct in the left parietal lobe. Reason for Speech Therapy Consult: + CVA Relevant Past Medical History: BHAKTI, HTN, afib Patient Report: I can see it but I can't read it Home Environment Prior Functional Level: Within Functional Limits Prior Swallowing Function/Diet Textures: Regular Consistency ;Thin Liquids IDDSI Level 0 Please see discipline specific clinical documentation [facility] for complete details for this therapy evaluation/treatment. SIGNATURE: Lara Eaton CCC-MIXING SUPERVISOR PATIENT NAME: Jose Cyr DATE: January 28, 2020 TIME: 11:33 AM progress on 2020-01 PROGRESS HNO ID: [id number] Normal 01-28-2020 [place] Author: Pedro Pablo Davenport General Service: Neurology ICU Medical Author Type: Physician Center Type: Progress Notes ([id number]) Filed: 01/28/2020 4:53 PM Note Text: SERVICE DATE: 01/28/2020 SERVICE TIME: 12:16 PM NEURO ICU PROGRESS NOTE DATE OF ADMISSION: 01/27/2020 Subjective Hospital Course: 01/27: Patient examined at bedside this am. Remains neurolog ically intact. No issues overnight. Objective BP 117/70 Pulse 82 Temp 36.6 ?C (97.9 ?F) (Temporal) R dago 21 Ht 180.3 cm (5' 11) Wt 130.7 kg (288 lb 2.3 oz) SpO2 96 % BMI 40.19 kg/m? Weight change: EXAM: GCS: Eyes: 4. Spontaneous (Right eye prosthesis) Verbal: 5: Oriented Motor: 6: Obeys Motor commands Total: 15 CV: Irregularly irregular, rate controlled. Normal S1/S2 Pulm: CTA bilaterally, even and unlabored on RA. GI/: Abdomen obese, soft, non tender, non distended Skin/Extremities: Edema- No Peripheral pulses- Present all e xtremities Wounds/Drsgs- No Breakdown- No ? NEUROLOGICAL: MOTOR STRENGTH: Upper and lower extremity 5/5 bilaterally SENSATION: Intact light touch and temperature COORDINATION: Finger-to- nose-finger intact bilaterally and Xyfh-cy-givd intact bilaterally Diagnostic tests reviewed for today's visit: Most recent labs and imaging results. Lines, Drains, and Airways Line Peripheral 01/27/20 Assessment Right Antecubital 18 Gauge 1 day ICU Checklist Last Documented/Reviewed time: 01/28/2020 10:53 AM ICU Delirium Status: CAM Negative - no action required Restraint Status: None ICU Mobility-Pt Has Been Out of Bed: No - Specify, PT Consul t - Specify Line Status: None Ventilator: None Davila Status: None GI/Stress Ulcer Prophylaxis: None - not required Nutrition is at Goal: Yes VTE Prophylaxis: Chemoprophylaxis: No chemoprophylaxis No Chemoprophylaxis Reason: Bleeding risk Pressure Injury Status: None ICU plan of care visit at bedside in last 24 hours: Yes, Pro BENITEZ little, Patient/ designee ICU Disposition- Is Patient Clinically Ready to Transfer to [facility] or SDU?: No Discharge Planning: To be determined PERSONAL INVOLVEMENT IN CARE: Reviewing initiation, response s and adjustments to therapies, coordination of care, and updating family with Staff Physician, Dr. Davenport. Assessment AND Plan 01/27: Patient examined at bedside this am. No events overni ght. Patient remains neurologically intact. Active Hospital Problems as of 01/28/2020 Noted - Resolved Hospital Obesity, Class III, BMI >= 40 (morbid obesity) ([facility]) E66.01 05/28/2017 - Present Current Assessment AND Plan PLAN: - Discussed diet and exercise modifications * (Principal) Acute ischemic stroke ([facility]) 01/27/2020 - Presen t Current Assessment AND Plan Assessment: Acute L parieto occipital infarct w/ hemorrhagic conversion Suspect cardio embolic in etiology in setting of new onset A fib, not on OAC Underlying BHAKTI- non compliant with CPAP - Not tPA candidate given presentation outside of window - CTA negative for LVO or significant stenosis - MRI: ?Findings suggesting acute ischemic infarct with jennifer chial hemorrhagic transformation in the superior left occipital lobe. ?There i s effacement of sulci and mild mass effect on the left lateral ventricle. ?No midline shift. 3. ?Small area of petechial-type hemorrhage likely associate d with a small area of acute ischemic infarct in the right frontal lo be PLAN: - Continue Aspirin - Started Statin - Continue chemoprophylaxis with Heparin and SCDs - Neuro checks - Monitor tele. Rate control - Normotensive BP goal as symptom onset >24 hours. <160 for now - Echocardiogram - Heart healthy diet - PT/OT BHAKTI (obstructive sleep apnea) 01/27/2020 - Present Current Assessment AND Plan Assessment: non complaint w/ CPAP at home PLAN: - educated patient on importance of CPAP and it's role and a ssociation to Afib and stroke. HTN (hypertension) 01/27/2020 - Present Current Assessment AND Plan PLAN: - SBP goal <160 - Continue Lisinopril - PRN antihypertensives Atrial fibrillation with RVR ([facility]) 01/27/2020 - Present Current Assessment AND Plan Assessment: Currently rate controlled PLAN: - PO Lopressor 25mg BID - Can resume anticoagulation in 3 weeks. HFrEF (heart failure with reduced ejection fraction) ([facility]) - Present Current Assessment AND Plan - Formal Echo: EF: 45% - Continue Lisinopril Medication and Non-Pharmacologic VTE Prophylaxis/Anticoagula nts Anticoagulant AND Antiplatelet Medications (From admission, onward) Start Dose Route Frequency Ordered Stop 01/28/20 0900 aspirin 81 mg chewable tab(s) 81 mg PO/FT DAILY 01/27/20 1153 -- 01/28/20 0600 heparin 5,000 Units injection 5,000 Units SUBCUTANEOUS EVERY 8 HOURS 01/27/20 1153 -- 01/28/20 0600 activity - mobilize patient ([place], [place]) 01/27/20 0245 pneumatic compression stockings ([place], [place]) VTE Prophylaxis: VTE prophylaxis appropriate Plan of care discussed with: Provider, RN, Patient SIGNATURE: Geovanna Clarke DO PATIENT NAME: Jose Cyr DATE: January 28, 2020 TIME: 12:16 PM PAGER/CONTACT #: [phone] THE NEURO ICU MANAGEMENT OF THIS PATIENT WAS DISCUSSED WITH THE MEDICINE TEAM I have reviewed the progress note obtained and documented by the resident, and I personally participated in the mitchell components. I have discussed the case and management of the patient's care. The following com ments revise or confirm relevant mitchell components of the note. I have repeated the examination and confirm the findings exc ept as documented. PATIENT PROBLEMS I REVIEWED, REVISED AND/OR INITIATED: The c are of this patient required my full attention and direct personal manag ement of: Active Problems: Acute ischemic stroke (HCC) BHAKTI (obstructive sleep apnea) HTN (hypertension) Atrial fibrillation (HCC) HFrEF (heart failure with reduced ejection fraction) (HCC) Cytotoxic brain edema (HCC) Brain compression (HCC) Resolved Problems: * No resolved hospital problems. * PLAN, IMPRESSION AND ACTION(S) TAKEN Aspirin, statin Okay to fully anticoagulate in 3 weeks ACEi PT/OT DVT chemoprophylaxis Transfer to floor Please see the documented [id number] plan in the [facility] ed problem list. Plan of care discussed with: Provider, RN, Patient. Pedro Pablo Davenport DO Staff, Neurointensive Care Neurological [place] Date of Service: 01/28/2020 Time of Service: 4:52 PM This is an electronically created document. If printed, please do not remove from the chart or modify pr inted copy. > 35 min spent at bedside counseling family and discussing p jennifer with consultants as well as bedside management of the patient. PROGRESS HNO ID: [id number] Normal 01-28-2020 [place] Author: Lila Cantor General Service: Neurosurgery Medical Author Type: Nurse Practitioner Center Type: Progress Notes ([id number]) Filed: 01/28/2020 5:16 PM Note Text: Neurosurgery Progress Note SERVICE DATE: 01/28/2020 SUBJECTIVE: Pt sitting up in chair. States he feels pretty good this mo rning Tolerating diet--No N/V. Denies WATKINS, dizziness, new weakness/ numbness to any ext. OBJECTIVE: Vitals: Temp (24hrs), Av.6 ?C (97.8 ?F), Min:36.5 ?C (97.7 ?F), Max:36.6 ?C (97.9 ?F) BP 123/102 Pulse 87 Temp 36.6 ?C (97.9 ?F) (Temporal) Resp 21 Ht 180.3 cm (5' 11) Wt 130.7 kg (288 lb 2.3 oz) SpO2 96 % BMI 40.19 kg/m? O2 Therapy: Room Air IANDO: Date 01/27/20699 - 01/28/20 0601/28/20699 - 01/29/20 0659 Shift 5518-7851 4256-0214 9387-9798 24 Hour Total 8056-6267 0170-8791 0272-2314 24 Hour Total INTAKE PO 120 240 360 480 480 PO 120 240 360 480 480 IV 303 303 Volume (mL) (NaCl 0.9% iv infusion) 303 303 Shift Total 303 120 240 663 480 480 OUTPUT Urine Urine Not Saved. 1 x 1 x 1 x 3 x # of BMs Number of BMs 1 x 1 x 2 x Shift Total Weight (kg) 130.7 130.7 130.7 130.7 130.7 130.7 130.7 130.7 MEDICATIONS Current Facility-Administered Medications Medication Dose Route Frequency - lisinopril 5 mg tab(s) (ZESTRIL, PRINIVIL) 5 mg ORAL DAILY - docusate 100 mg oral liquid (DIOCTO, COLACE) 100 mg ORAL/F EEDING TUBE BID - bisacodyl 10 mg suppository (DULCOLAX) 10 mg RECTAL DAILY PRN - NaCl 0.9% 3-5 mL 3-5 mL INTRAVENOUS q 12 H - acetaminophen 650 mg tab(s) (TYLENOL) 650 mg ORAL/FEEDING TUBE q 4 H PRN - oxyCODONE IR 5-10 mg tab(s) (ROXICODONE) 5-10 mg ORAL/FEED ING TUBE q 4 H PRN - hydrALAZINE 5 mg injection (APRESOLINE) 5 mg INTRAVENOUS q 1 H PRN - potassium chloride ER 20-40 mEq tab(s) (K-DUR, KLOR-CON) 2 0-40 mEq ORAL/FEEDING TUBE PRN Or - potassium chloride iv piggyback 20 mEq/100 mL 20 mEq INTRA VENOUS PRN - magnesium sulfate in water 2 g in sterile water 50 ml 2 g INTRAVENOUS PRN - sodium phosphate 45 mmol in NaCl 0.9% 250 mL 45 mmol INTRA VENOUS PRN - calcium gluconate 4 g in NaCl 0.9% 250 mL 4 g INTRAVENOUS PRN - perflutren lipid microspheres 1.1 mg/mL 1.3 mL injection ( DEFINITY) 1.3 mL INTRAVENOUS DIRECTED PRN - metoprolol tartrate (short acting) 25 mg tab(s) (LOPRESSOR ) 25 mg ORAL/FEEDING TUBE q 12 H - aspirin 81 mg chewable tab(s) 81 mg ORAL/FEEDING TUBE BILL Y - heparin 5,000 Units injection 5,000 Units SUBCUTANEOUS q 8 H Labs: Recent Labs 01/28/20 0350 01/27/20 1410 01/27/20 0315 01/26/20 1535 NA 140 -- 141 141 K 3.6* -- 3.1* 3.6* CHLOR 103 -- 103 101 CO2 24 -- 26 25 BUN 19 -- 17 19 CREAT 0.97 -- 0.98 1.08 GLUC 132* -- 141* 128* ANION 13 -- 12 15 CA 8.7 -- 8.6 9.1 MG 2.4* -- 1.9 -- P 3.2 -- 3.4 -- ALB -- -- -- 4.0 AST -- -- -- 24 ALT -- -- -- 13 ALKPHOS -- -- -- 72 TBILI -- -- -- 1.1 WBC 8.58 -- 8.31 9.91 HB 13.4* -- 13.7 14.6 HCT 41.8 -- 42.7 45.6 PLT 292 -- 280 315 INR -- 1.06 -- -- IMAGING: MRI Brain 01/27/2020 1. ?Limited examination as detailed above. 2. ?Findings suggesting acute ischemic infarct with petechia l hemorrhagic transformation in the superior left occipital lobe. ?There i s effacement of sulci and mild mass effect on the left lateral ventricle. ?No midline shift. 3. ?Small area of petechial-type hemorrhage likely associate d with a small area of acute ischemic infarct in the right frontal lo be. 4. ?Small acute ischemic infarct in the left parietal lobe. CT Brain 01/27/2020 1. ?Petechial parenchymal hemorrhage in the superior left oc cipital lobe likely due to hemorrhagic transformation of acute ischemic i nfarct causing mild mass effect as detailed above. 2. ?Small focus of petechial-type hemorrhage in the right fr ontal lobe. 3. ?Probable small acute ischemic infarct in the left pariet al lobe. 4. ?Chronic small vessel ischemic changes of the supratentor ial white matter. ?Probable chronic sinusitis changes. Exam: GENERAL: No distress, Alert and Oriented x 3 NEURO: CN II-XII intact, right eye with prosthetic, left pup il reactive, MAEx4, follows commands, No pronator drift Motor strength : 4+/5 bilateral upper extremitites 4+/5 bilateral lower extremities Sensation intact, speech clear, no aphasia HEENT: normocephalic, atraumatic LUNGS: Unlabored breathing CARDIAC: irregular rate and rhythm ABDOMEN: Soft, non-tender EXTREMITIES: ZHANG, No deformities, No edema SKIN: No rashes or lesions ASSESSMENT AND PLAN: Active Hospital Problems Diagnosis Date Noted - Acute ischemic stroke (HCC) 01/27/2020 - BHAKTI (obstructive sleep apnea) 01/27/2020 - HTN (hypertension) 01/27/2020 - Atrial fibrillation with RVR (HCC) 01/27/2020 - Obesity, Class III, BMI >= 40 (morbid obesity) ([facility]) E66.0 1 05/28/2017 64 yo male with ischemic strokes w/ hemorrhagic transformati on Neuro as above No plans on any neurosurgical intervention Neurology mnmt Recommend lifestyle changes - diet, exercise, wt loss, manag ement of afib and ischemic stroke Med mgmt PT eval Per Dr Mak, would not recommend resuming eliquis at this time. WOuld recommend another [address] brain to determine s tability. If stable, pt would be considered moderate risk for intracrania l hemorrhage--that should be weighed against the risk of no el iquis ? SIGNATURE: Lila Cantor APRN.[employer]MER PATIENT NAME: Jose burciaga DATE: January 28, 2020 TIME: 10:37 AM PROGRESS HNO ID: [id number] Normal 01-28-2020 [place] Author: Arjun Garcia General Service: Cardiovascular Medicine Medical Author Type: Physician Center Type: Progress Notes ([id number]) Filed: 01/28/2020 10:49 AM Note Text: CCU - PROGRESS NOTE SERVICE DATE: January 28, 2020 Admission Date: 01/27/2020 AGE: [age] year old LOS: 1 days Subjective 64yo M h/o obesity, HTN, newly-diagnosed Afib (01/24), BHAKTI i s presenting after a presentation to [facility] concerning for an a cute stroke. Neurosurgery was brought on board because there was evidence of hemorrhagic conversion on the initial CTH. This was later co nfirmed with MRI brain showing acute ischemic infarct with petechial hemo rrhagic transformation in superior left occipital lobe. Patient has been started on lopressor 25mg BID and is on ASA. Per neurology further A C will be held off for at least another 24 hours. His Chadsvasc is 3, we wi ll consider starting AC when able. He is amenable to continuing this int o the future, he states he had not been following with a astrobiologist jose r to this presentation. We will continue to hold off on AC in the setting of known h emorrhagic transformation until OK per NICU. Patient Will also need to be started on ACEi in setting of HFrEF, we will start this if he no longer requires permissive HTN in setting of ischemic stroke. 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 Acute Ischemic Stroke (Hcc) Bhakti (Obstructive Sleep Apnea) Htn (Hypertension) Atrial Fibrillation With Rvr (Hcc) PAST MEDICAL HISTORY Diagnosis Date - Atrial fibrillation (HCC) - Hypertension - Obesity - Obstructive sleep apnea PAST SURGICAL HISTORY Procedure Laterality Date - HERNIA REPAIR HX 1997 umbilical - PAST SURGICAL HISTORY OF 1965 Artificial right eye Social History Tobacco Use - Smoking status: Never Smoker - Smokeless tobacco: Never Used Substance Use Topics - Alcohol use: Yes Comment: occasional - Drug use: No VITAL SIGNS (last 24hrs min/max): Temp Av.6 ?C (97.8 ?F) Min: 36.5 ?C (97.7 ?F) Max: 36.6 ?C (97.9 ?F) Pulse Av.2 Min: 70 Max: 85 No data recorded Cuff BP Min: 113/78 Max: 146/110 Pain Level: 0 Vital signs reviewed. BP 139/90 Pulse 75 Temp (Src) 97.9 (Temporal) Resp 18 Ht 5' 11 (1.80m) Wt 288 lb 2.3 oz (130.7kg) SpO2 96% BMI 40.21 kg/(m2). O2 Therapy: Room Air Temp (24hrs), Av.6 ?C (97.8 ?F), Min:36.5 ?C (97.7 ?F), Max:36.6 ?C (97.9 ?F) NET FLUID BALANCE Intake/Output Summary (Last 24 hours) at 01/28/2020 0739 Last data filed at 01/28/2020 0400 Gross per 24 hour Intake 663 ml Output ? Net 663 ml MEDICATIONS Current Facility-Administered Medications Medication Dose Route Frequency - docusate 100 mg oral liquid (DIOCTO, COLACE) 100 mg ORAL/F EEDING TUBE BID - bisacodyl 10 mg suppository (DULCOLAX) 10 mg RECTAL DAILY PRN - NaCl 0.9% 3-5 mL 3-5 mL INTRAVENOUS q 12 H - acetaminophen 650 mg tab(s) (TYLENOL) 650 mg ORAL/FEEDING TUBE q 4 H PRN - oxyCODONE IR 5-10 mg tab(s) (ROXICODONE) 5-10 mg ORAL/FEED ING TUBE q 4 H PRN - hydrALAZINE 5 mg injection (APRESOLINE) 5 mg INTRAVENOUS q 1 H PRN - potassium chloride ER 20-40 mEq tab(s) (K-DUR, KLOR-CON) 2 0-40 mEq ORAL/FEEDING TUBE PRN Or - potassium chloride iv piggyback 20 mEq/100 mL 20 mEq INTRA VENOUS PRN - magnesium sulfate in water 2 g in sterile water 50 ml 2 g INTRAVENOUS PRN - sodium phosphate 45 mmol in NaCl 0.9% 250 mL 45 mmol INTRA VENOUS PRN - calcium gluconate 4 g in NaCl 0.9% 250 mL 4 g INTRAVENOUS PRN - perflutren lipid microspheres 1.1 mg/mL 1.3 mL injection ( DEFINITY) 1.3 mL INTRAVENOUS DIRECTED PRN - metoprolol tartrate (short acting) 25 mg tab(s) (LOPRESSOR ) 25 mg ORAL/FEEDING TUBE q 12 H - aspirin 81 mg chewable tab(s) 81 mg ORAL/FEEDING TUBE BILL Y - heparin 5,000 Units injection 5,000 Units SUBCUTANEOUS q 8 H Lines, Drains, and Airways Line Peripheral 01/27/20 Assessment Right Antecubital 18 Gauge 1 day PHYSICAL EXAM PERFORMED: General: no acute distress Cardiovascular: Irregular rhythm, nontachycardic, no M/R/G Respiratory: Clear to auscultation Abdomen: Soft and Nontender Extremities: Edema- No Neurologic: Awake, oriented, Alert, Follows commands and Mov ing all extremities Respiratory/Nursing Documentation: O2 Therapy: Room Air (01/27/201999) HEMODYNAMIC DATA: Reviewed NUTRITION: Enteral Feeds: No Regular diet DATA: Diagnostic tests reviewed for today's visit, films/specimens were personally reviewed by me: Most recent labs and imaging results. LABS: Recent Labs 01/28/20 0350 01/27/20 1410 01/26/20 1535 WBC 8.58 -- < > 9.91 RBC 4.87 -- < > 5.22 HB 13.4* -- < > 14.6 HCT 41.8 -- < > 45.6 MCV 85.8 -- < > 87.4 PLT 292 -- < > 315 GLUC 132* -- < > 128* BUN 19 -- < > 19 CREAT 0.97 -- < > 1.08 NA 140 -- < > 141 K 3.6* -- < > 3.6* CHLOR 103 -- < > 101 CO2 24 -- < > 25 TPROT -- -- -- 7.1 ALB -- -- -- 4.0 CA 8.7 -- < > 9.1 ALKPHOS -- -- -- 72 TBILI -- -- -- 1.1 AST -- -- -- 24 ALT -- -- -- 13 PTSEC -- 11.4 -- -- APTT -- 25.9 -- -- INR -- 1.06 -- -- MG 2.4* -- < > -- < > = values in this interval not displayed. ABG: Invalid input(s): [id number] Assessment/Plan IMPRESSION: Critical Care Documentation: The patient has the following o rgan/system impairment(s): Afib 1. Acute ischemic infarct with petechial hemorrhagic transfo rmation in superior left occipital lobe 2. Newly diagnosed Afib 3. HF reduced EF (45%) 4. Obesity 5. BHAKTI 6. HTN MMP CRITICAL CARE PLAN: -ASA, will hold off on OAC until OK per NICU. -on Metoprolol 25mg BID -will add ACEi later today for HFrEF -Continue to encourage CPAP use -Lifestyle modifications -K>4.0, Mg>2.0 Discussed with staff/patient/family Time spent providing critical care services: 30 minutes excl uding procedures. SIGNATURE: Soto Cole MD PATIENT NAME: Jose Cyr DATE: January 28, 2020 TIME: 7:39 AM Attending Note I personally saw and examined the patient. I reviewed the re sident's note. I agree with the resident's assessment and plan unless other butler noted. Patient denies any chest pain shortness of breath or palpita tions. Telemetry reviewed. Atrial fibrillation rates well controlle d. Beta blockers were just initiated the day before. Recommend antic oagulation when cleared by neurosurgery/neurology. Echo cavagram shows mild LV dysfunction. NAI inhibitor's have been initiated in addition to the blockers that he was already on. Consider ischemic evaluatio n as an outpatient once patient has recovered from the stroke. NAI i nhibitor's will also help with blood pressure control. No further cardiac recommendations and will sign off. Signature: Arjun Garcia MD Date: 01/28/2020 Time: 10:48 AM phosphorous blood o n 2020-01-28 Phosphate [Mass/Vol] 3.2 2.7-4.8 mg/dL Normal 0 [facility] ([id number]) Comment: Performed By: #### TROPT ### # [place] [address] nursing prog on NURSING PROG HNO ID: [id number] Normal 01-28-20 20 [facility] Author: Danielle DrakeRn) BENITEZ Briones Prather ([id number]) Service: Nursing Author Type: Registered Nurse Type: Nursing Progress Note Filed: 01/28/2020 4:30 PM Note Text: RN called report to [phone] RNS[address]rina. RN attempted to call , Lorena, and update her on room s tatus-no answer, message left. Per Dr. Davenport is upset pt does no t have any pants and only a gown. The patient or did not ask for p ants from the RN or tech throughout the day. In addition, the patient did not inquire about pants when the RN asked Can I get you anything else. - Pants provided to patient once Dr. Davenport notified RN that the is upset about the patient not wearing pants and only a gown. Patient transferred via wheelchair to [facility]- belongings taken with patient. IV intact. RN offered to answer any additional questions fro m patient upon transfer- none at this time. mike hilario NURSING PROG HNO ID: [id number] [place] 01-28-20 [facility] Author: Mary DrakeRnTeja Hill RN Prather ([id number]) Service: Nursing Author Type: Registered Nurse Type: Nursing Progress Note Filed: 01/28/2020 4:14 PM Note Text: Nursing Progress Note Patient Name: Jose Cyr Patient Location: [id number]- Daily Note: 1604 Received report from Danielle in [facility]. This note was completed by: Mary Hill RN NURSING PROG HNO ID: [id number] [place] 01-28-20 [facility] Author: Danielle Briones RN Prather ([id number]) Service: Nursing Author Type: Registered Nurse Type: Nursing Progress Note Filed: 01/28/2020 3:59 PM Note Text: [facility] RN attempted to call report to [phone] RN- [phone] RN unable to take report at this time. mike hilario magnesium blood on 2020-01-28 Magnesium [Mass/Vol] 2.4 1.7-2.3 mg/dL High 0 [facility] ([id number]) Comment: Performed By: #### TROPT ### # [facility] [address] [place] [address] history physical on 2020-01-28 HISTORY HNO ID: [id number] Normal 01-28-2020 [place] PHYSICAL Author: Mayur Li MD General Service: Hospital Medicine Medical Author Type: Resident Center Type: HANDP ([id number]) Filed: 01/28/2020 1:06 PM Note Text: Attestation signed by Hector Gallegos at 01/29/2020 3:32 PM Attending Note I personally saw and examined the patient on 01/29/20. I rev iewed the resident's note. I agree with the resident's assessment and plan unless otherwise noted. Signature: Hector Gallegos, Date: 01/29/2020 Time: 3:32 PM Pager: [phone] SERVICE DATE: 01/28/2020 SERVICE TIME: 1:[address] [facility] acceptance note SERVICE DATE: 01/28/2020 SERVICE TIME: 12:38 PM PRIMARY CARE PHYSICIAN: Markus Woods III MD Subjective CHIEF COMPLAINT: Stroke like symptoms HPI: Mr Cyr is a 64 years old male patient with past medical hi story of obesity, obstructive sleep apnea, hypertension, atrial fibri llation was transferred from most the ED to [facility] complaining of stroke like symptoms. CT brain showed evidence of petechial parenchymal hemorrhage in the superior left occipital lobe, small petech ial hemorrhage and right frontal lobe and small acute infarct in the left p arietal lobe. Neurology is following, was started on aspirin and statin, n eurosurgery evaluated the patient, no plan for neurosurgical interventio n. He have a history of a long history of obstructive sleep apnea, not co mpliant to his CPAP, and he was found to have new onset atrial fibrillation , not on anticoagulation. Echocardiogram wasn't yesterday and it show ed ejection fraction 45%, was started on metoprolol and lisinopril, card iology is following. FUNCTIONAL STATUS: Independent PAST MEDICAL HISTORY Diagnosis Date - Atrial fibrillation (HCC) - Hypertension - Obesity - Obstructive sleep apnea PAST SURGICAL HISTORY Procedure Laterality Date - HERNIA REPAIR HX 1997 umbilical - PAST SURGICAL HISTORY OF 1965 Artificial right eye FAMILY HISTORY Problem Relation Age of Onset - Cancer Brother pancreas - Coronary Artery Disease Mother - Diabetes Mother Social History Tobacco Use - Smoking status: Never Smoker - Smokeless tobacco: Never Used Substance Use Topics - Alcohol use: Yes Comment: occasional - Drug use: No metoprolol succinate ER (TOPROL XL) 25 mg 24 hr tablet, Take 1 tablet by mouth once daily., Disp: 30 tablet, Rfl: 2 aspirin, enteric coated (ECOTRIN LOW STRENGTH) 81 mg EC tabl et, Take 1 tablet by mouth once daily., Disp: , Rfl: nitroglycerin sublingual (NITROQUICK) 0.4 mg SL tablet, Diss olve 1 tablet under the tongue every 5 minutes as needed for Chest Pain., Disp: 1 Bottle of 25, Rfl: 0 ALLERGIES No Known Allergies COMPLETE REVIEW OF SYSTEMS: See HPI Objective PHYSICAL EXAM: General: no acute distress Cardiovascular: Irregular rhythm, nontachycardic, no M/R/G Respiratory: Clear to auscultation Abdomen: Soft and Nontender Extremities: Edema- No Neurologic: Awake, oriented, Alert, Follows commands and Mov ing all extremities BP 129/96 Pulse 77 Temp (Src) 97.9 (Temporal) Resp 20 Ht 5' 11 (1.80m) Wt 288 lb 2.3 oz (130.7kg) SpO2 96% BMI 40.21 kg/(m2). O2 Therapy: Room Air DATA: Diagnostic tests reviewed for today's visit: Most recent labs and imaging results. Component Latest Ref Rng AND Units 01/27/2020 01/27/2020201901/28/2020 3:15 AM 5:30 AM 2:10 PM WBC 4.23 - 9.07 thou/cmm 8.31 8.58 RBC 4.63 - 6.08 mil/cmm 4.98 4.87 HGB 13.7 - 17.5 g/dL 13.7 13.4 (L) Hematocrit 40.1 - 51.0 % 42.7 41.8 MCV 83.2 - 95.6 fl 85.7 85.8 MCH 25.7 - 32.2 pg 27.5 27.5 MCHC 32.3 - 36.5 % 32.1 (L) 32.1 (L) RDW 11.6 - 14.4 % 13.3 13.5 RDW-SD 36.1 - 45.8 fl 41.2 41.9 Platelet Count 141 - 365 thou/cmm 280 292 MPV 8.7 - 12.0 fl 10.7 10.6 Seg Neutrophil % 61.6 52.4 Immature Grans % 0.20 0.10 Lymphocyte % 29.0 37.5 Monocyte % 7.1 6.3 Eosinophil % 1.6 3.0 Basophil % 0.5 0.7 Abs. Neut(Anc) 1.78 - 5.38 thou/cmm 5.12 4.50 Immature Grans # 0.00 - 0.05 thou/cmm 0.02 0.01 Abs. Lymph 0.84 - 2.85 thou/cmm 2.41 3.22 (H) Abs. Holmes 0.30 - 0.82 thou/cmm 0.59 0.54 Abs. Eosin 0.04 - 0.54 thou/cmm 0.13 0.26 Abs. Baso 0.01 - 0.08 thou/cmm 0.04 0.06 Sodium 136 - 144 mmol/L 141 140 Potassium 3.7 - 5.1 mmol/L 3.1 (L) 3.6 (L) Chloride 97 - 105 mmol/L 103 103 CO2 22 - 30 mmol/L 26 24 Glucose 74 - 99 mg/dL 141 (H) 132 (H) BUN 9 - 24 mg/dL 17 19 Creatinine 0.73 - 1.22 mg/dL 0.98 0.97 Calcium 8.5 - 10.2 mg/dL 8.6 8.7 Anion Gap 9 - 18 mmol/L 12 13 Triglyceride 0 - 149 mg/dL 72 Cholesterol, Total 0 - 199 mg/dL 99 HDL Cholesterol mg/dL 28 VLDL Cholesterol 0 - 29 mg/dL 14 LDL Calculated 0 - 99 mg/dL 57 CHOL/HDL 0.00 - 5.09 3.54 LDL/HDL 0.00 - 2.53 2.04 Non HDL Cholesterol 0 - 129 mg/dL 71 Hemoglobin A1C 4.0 - 5.6 % 7.3 (H) Estimated Average Glucose mg/dL 163 Prothrombin Time 9.7 - 13.0 sec 11.4 INR 0.90 - 1.30 1.06 Magnesium 1.7 - 2.3 mg/dL 1.9 2.4 (H) MRSA Screen No MRSA detected. Phosphorus 2.7 - 4.8 mg/dL 3.4 3.2 MARÍA High Sensitivity 0 - 11 ng/L 62 (HH) 56 (HH) eGFR >60mL/min/1.73m2 >60 >60 APTT 23.0 - 32.4 sec 25.9 TSH 0.270 - 4.200 uIU/mL 1.780 Assessment AND Plan Active Hospital Problems as of 01/28/2020 Noted - Resolved Neurology Acute ischemic stroke (HCC) 01/27/2020 - Present Current Assessment AND Plan -CT brain showed evidence of petechial parenchymal hemorrhag e in the superior left occipital lobe, small petechial hemorrhage and right frontal lobe and small acute infarct in the left parietal lobe. -Neurology is following, on aspirin and statin -Neurosurgery evaluated the patient, no plan for neurosurgic al intervention. -On DVT prophylaxis and SCDs -Neurochecks -PT/OT Cardiovascular HTN (hypertension) 01/27/2020 - Present Current Assessment AND Plan -Keep systolic blood pressure less than 160 -On metoprolol 25 mg twice a day and lisinopril 5 mg daily -On hydralazine as needed Atrial fibrillation ([facility]) 01/27/2020 - Present Current Assessment AND Plan -New onset atrial fibrillation -Net5nl5-Nije risk score is 3 -Echocardiogram showed evidence of ejection fraction of 45% -Cardiology is following, hold off anticoagulation for now -Metoprolol 25 mg twice daily -On Telemetry HFrEF (heart failure with reduced ejection fraction) ([facility]) - Present Current Assessment AND Plan -Echocardiogram showed evidence of new onset heart failure, ejection fraction is 45% -Cardiology is following, on metoprolol 25 mg twice daily an d lisinopril 5 mg daily Graham-lifestyle modification -Keep potassium > 4, magnesium > 2 Pulmonary BHAKTI (obstructive sleep apnea) 01/27/2020 - Present Current Assessment AND Plan -CPAP at night Medication and Non-Pharmacologic VTE Prophylaxis/Anticoagula nts Anticoagulant AND Antiplatelet Medications (From admission, onward) Start Dose Route Frequency Ordered Stop 01/28/20 0900 aspirin 81 mg chewable tab(s) 81 mg PO/FT DAILY 01/27/20 1153 -- 01/28/20 0600 heparin 5,000 Units injection 5,000 Units SUBCUTANEOUS EVERY 8 HOURS 01/27/20 1153 -- 01/28/20 0600 activity - mobilize patient ([place], [place]) 01/27/20 0245 pneumatic compression stockings ([place]) VTE Prophylaxis: VTE prophylaxis appropriate SIGNATURE: Mayur Li MD PATIENT NAME: Jose Cyr DATE: January 28, 2020 TIME: 1:05 PM PAGER/CONTACT #: [phone] hemogram/diff on 28-01-20 Abs Immature Grans 0.01 0.00-0.05 thou/cmm Normal 01-28-2020 [facility] (00 000) Comment: Performed By: #### TROPT ### # [facility] [address] [place] [address] Abs Neut (ANC) 4.50 1.78-5.38 thou/cmm Normal 01-28-2020 [facility] ([id number]) Comment: Performed By: #### TROPT ### # [address] [address] Abs. Baso 0.06 0.01-0.08 thou/cmm Normal 01-28-2020 [facility] ([id number]) Comment: Performed By: #### TROPT ### # [facility] [address] [place], [place] [address] Abs. Holmes 0.54 0.30-0.82 thou/cmm Normal 01-28-2020 [facility] ([address]322) Comment: Performed By: #### TROPT ### # [facility] [address] [place], [place] [address] Basophils/100 WBC (Bld) 0.7 % Normal 2019 [facility] (76376) Comment: Performed By: #### TROPT ### # [facility] [address] [place], [place] [address] Eosinophils (Bld) 0.26 0.04-0.54 thou/cmm Normal 01-28-2020 [facility] ([address]80) Comment: Performed By: #### TROPT ### # [facility] [address] [place], [place] [address] Eosinophils/100 WBC (Bld) 3.0 % Normal 01-09 [facility] (22877) Comment: Performed By: #### TROPT ### # [facility] [address] [place], [place] [address] Erythrocyte distribution 13.5 11.6-14.4 % Normal 01-27 [facility] width (RBC) [Ratio] System (68538) Comment: Performed By: #### TROPT ### # [facility] [address] [place], [place] [address] Hematocrit (Bld) [Volume 41.8 40.1-51.0 % Normal 01-27 [facility]] System (00 000) Comment: Performed By: #### TROPT ### # [facility] [address] [place], [place] [address] Hemoglobin (Bld) [Mass/Vol] 13.4 13.7-17.5 g/dL Low [facility] (00 000) Comment: Performed By: #### TROPT ### # [facility] [address] [place], [place] [address] Immature Grans 0.10 % Normal 01-28-2020 [facility] ([id number]) Comment: Performed By: #### TROPT ### # [facility] [address] [place], [place] [address] Lymphocytes (Bld) [#/Vol] 3.22 0.84-2.85 thou/cmm High 01-09 [facility] (00 000) Comment: Performed By: #### TROPT ### # [facility] [address] [place], [place] [address] Lymphocytes/100 WBC (Bld) 37.5 % Normal 01-09 [facility] ([address]80) Comment: Performed By: #### TROPT ### # [facility] [address] [place], [place] [address] MCH (RBC) [Entitic mass] 27.5 25.7-32.2 pg Normal 01-27 [facility] (00 000) Comment: Performed By: #### TROPT ### # [facility] [address] [place], [place] [address] MCHC (RBC) [Mass/Vol] 32.1 32.3-36.5 % Low 01-28-20 20 [facility] (67392) Comment: Performed By: #### TROPT ### # [facility] [address] [place], [place] [address] MCV (RBC) [Entitic vol] 85.8 83.2-95.6 fl Normal 2019 [facility] (00 000) Comment: Performed By: #### TROPT ### # [facility] [address] [place], [place] [address] Monocytes/100 WBC (Bld) 6.3 % Normal 2019 [facility] (50246) Comment: Performed By: #### TROPT ### # [facility] [address] [place], [place] [address] Platelet mean volume (Bld) 10.6 8.7-12.0 fl Normal [facility] [Entitic vol] System (42994) Comment: Performed By: #### TROPT ### # [facility] [address] [place], [place] [address] Platelets (Bld) [#/Vol] 292 141-365 thou/cmm Normal 2019 [facility] (00 000) Comment: Performed By: #### TROPT ### # [facility] [address] [place], [place] [address] RBC (Bld) [#/Vol] 4.87 4.63-6.08 mil/cmm Normal 01-28-2020 [facility] (00 000) Comment: Performed By: #### TROPT ### # [facility] [address] [place], [place] [address] RDW SD 41.9 36.1-45.8 fl Normal 01-28-2020 [facility] (93115) Comment: Performed By: #### TROPT ### # [facility] [address] [place], [place] [address] Seg Neutrophil 52.4 % Normal 01-28-2020 [facility] (13225) Comment: Performed By: #### TROPT ### # [facility] [address] [place], [place] [address] WBC (Bld) [#/Vol] 8.58 4.23-9.07 thou/cmm Normal 01-28-2020 [facility] (00 000) Comment: Performed By: #### TROPT ### # [facility] [address] [place], [place] [address] basic metabolic panel on 2020-01-28 Anion gap [Moles/Vol] 13 9-18 mmol/L Normal 01-28-20 [facility] (12132) Comment: Performed By: #### TROPT ### # [facility] [address] [place], [place] [address] Calcium [Mass/Vol] 8.7 8.5-10.2 mg/dL Normal 01-28-2020 [facility] (92026) Comment: Performed By: #### TROPT ### # [facility] [address] [place], [place] [address] Chloride [Moles/Vol] 103 97-105 mmol/L Normal 0 [facility] (19313) Comment: Performed By: #### TROPT ### # [facility] [address] [place], [place] [address] CO2 Blood 24 22-30 mmol/L Normal 01-28-2020 [facility] (65881) Comment: Performed By: #### TROPT ### # [facility] [address] [place], [place] [address] Creatinine [Mass/Vol] 0.97 0.73-1.22 mg/dL Normal 01-28-20 [facility] (00 000) Comment: Performed By: #### TROPT ### # [facility] [address] [place], [place] [address] Glucose [Mass/Vol] 132 74-99 mg/dL High 01-28-2020 [facility] (96278) Comment: Result Comment: The [place] [employer] (ADA) provides guidance for cutoff values for fastin g glucose and random glucose. The ADA defines fasting as n o caloric intake for at least 8 hours.Fasting plasma glucose results between 100 to 125 mg/dL indicate increased risk for diabetes (prediabetes). Fasting plasma glucose resul ts greater than or equal to 126 mg/dL meet the criteria for diagnosis of diabetes. In the absence of unequivocal hyper glycemia, results should be confirmed by repeat testing. In a patient with classic symptoms of hyperglycemia or hyperglycemic crisis, random plasma glucose results great er than or equal to 200 mg/dL meet the criteria for diagno sis of diabetes. Reference: Standards of Medical Care in Diabetes 2016; [place] [employer]. Diabetes Care. 2016;39(Suppl 1). Performed By: #### TROPT ### # [facility] [address] [place], [place] [address] Potassium [Moles/Vol] 3.6 3.7-5.1 mmol/L Low 01-28-20 [facility] (01523) Comment: Performed By: #### TROPT ### # [facility] [address] [place], [place] [address] Sodium [Moles/Vol] 140 136-144 mmol/L Normal 01-28-2020 [facility] (25997) Comment: Performed By: #### TROPT ### # [facility] [address] [place], [place] [address] Urea nitrogen [Mass/Vol] 19 9-24 mg/dL Normal 01-27 [facility] (25166) Comment: Performed By: #### TROPT ### # [address] [address] tsh on 2020-01-27 TSH Qn 1.780 0.270-4.200 uIU/mL Normal 01-27-2020 [facility] (12580) Comment: Result Comment: : 1st trimester:(9-12 weeks):0 .180-2.900 uIU/mL 2nd trimester: 0.110-3.980 u IU/mL 3rd trimester: 0.480-4.710 u IU/mL Patients taking a biotin dos e of up to 5 mg/day should refrain from taking biotin f or 4 hours prior to sample collection. Patients taking a biotin dose of 5 to 10 mg/day should refrain from taking b iotin for 8 hours prior to sample collection. Patients taking a biotin dose > 10 mg/day should consult with their physician or the laboratory prior to having a sample taken. Clini cians should consider biotin interference as a source of error, when clinically suspicious of the laboratory result. Performed By: #### TROPT ### # [address] [address] troponin t, high sens. on 2020-01-27 Troponin T, High Sens. 56 0-11 ng/L Critically high 0 01-27-2020 [facility] (00 000) Comment: Result Comment: Patients justice ing a biotin dose of up to 5 mg/day should refrain from taking biotin f or 4 hours prior to sample collection. Patients taking a biotin dose of 5 to 10 mg/day should refrain from taking b iotin for 8 hours prior to sample collection. Patients taking a biotin dose > 10 mg/day should consult with their physician or the laboratory prior to having a sample taken. Clini cians should consider biotin interference as a source of error, when clinically suspicious of the laboratory result. Performed By: #### TROPT ### # [address] [address] Troponin T, High Sens. 62 0-11 ng/L Critically high 0 01-27-2020 [facility] ( 000) Comment: Result Comment: Patients justice ing a biotin dose of up to 5 mg/day should refrain from taking biotin f or 4 hours prior to sample collection. Patients taking a biotin dose of 5 to 10 mg/day should refrain from taking b iotin for 8 hours prior to sample collection. Patients taking a biotin dose > 10 mg/day should consult with their physician or the laboratory prior to having a sample taken. Clini cians should consider biotin interference as a source of error, when clinically suspicious of the laboratory result. Performed By: #### TROPT ### # [address] [address] protime on INR Coag (PPP) [Relative 1.06 0.90-1.30 {INR} Normal 01-26 [facility]] System (00 000) Comment: Result Comment: Vitamin K An tagonist (VKA) Therapeutic Range: INR 2 to 3 (Target INR of 2.5) Note: For patients treated w ith VKA drugs, such as warfarin, the [place] [employer] 2012 Guideline recommends a therapeutic INR range of 2 to 3 (target INR of 2.5). This recommendation includes high -risk patients with antiphospholipid syndrome with previous arter ial or venous thromboembolism, current-generation mechanica l or bioprosthetic aortic heart valve replacement. Note: Patients with pinsetter mechanic automatic al aortic valve replacement and additional risk factors for thromboembolic events (atrial fibrillation, previous throm boembolism, LV dysfunction, hypercoagulable conditions) or an older generation mechanical AVR (i.e., ball in-Cage) or any mechanical MVR should have a INR therapeutic range of 2 .5 to 3.5 target INR of 3). Abby GH, et al. Chest 2012 ; 141:7S-47S Violet RA et al. [facility] 20 ; 70: 252-289 Performed By: #### TROPT ### # [facility] [address] [place], [place] [address] PT Coag (PPP) [Time] 11.4 9.7-13.0 sec Normal 0 [facility] (47060) Comment: Performed By: #### TROPT ### # [facility] [address] [place], [place] [address] progress on 2020-01 PROGRESS HNO ID: [id number] Normal 01-27-2020 [facility] Author: Brittani Warren Prather ([id number]) Service: Neurology ICU Author Type: Physician Type: Progress Notes Filed: 01/27/2020 8:30 PM Note Text: PATIENT NAME: Jose Cyr PATIENT STAFF COORDINATION OF CRITICAL CARE I have reviewed the progress note obtained and documented by the resident, Dr Clarke and I personally participated in the mitchell component s. I have discussed the case and management of the patient's care. The following comments revise or confirm relevant mitchell components of the no te. I have repeated the examination and confirm the findings exc ept as documented below. The patient is critically ill because of imminent risk of ac [facility] brain damage, stroke and ICH., HTN and continues to require intens carson support and observation. This patient has a high probability of sudden, clinically si gnificant deterioration, which requires the highest level of physician preparedness to intervene urgently. I managed/supervized life or organ joshi pporting interventions that required frequent physician assessment. I devoted my full attention to the direct care of this patient for the am ount of time indicated below. Time I spent with family or surrogate(s) is included only if the patient was incapable of providing the necessary info rmation or participating in medical decision making. Time devoted to te aching or to any procedures I billed separately is not included. PATIENT PROBLEMS I REVIEWED, REVISED AND/OR INITIATED: The c are of this patient required my full attention and direct personal manag ement of: Active Hospital Problems as of 01/27/2020 Noted - Resolved Neurology * (Principal) Acute ischemic stroke ([facility]) 01/27/2020 - Presen t Current Assessment AND Plan Assessment: Acute L parieto occipital infarct w/ hemorrhagic conversion Suspect cardio embolic in etiology in setting of new onset A fib, not on OAC Underlying BHAKTI- non compliant with CPAP - Not tPA candidate given presentation outside of window - CTA negative for LVO or significant stenosis PLAN: - Holding antiplatelets/OAC and DVT chemoprophylaxis for now - SCDs - repeat CTH @ 0500 ([address] at [facility]SH) - MRI brain wwo contrast later this AM to r/o underlying mas s lesion - Neuro checks - Monitor tele. Rate control - Normotensive BP goal as symptom onset >24 hours. <160 for now - Echocardiogram - Daily labs - Trend troponin - Passed bedside swallow eval. Heart healthy diet - PT/OT eval Cardiovascular HTN (hypertension) 01/27/2020 - Present Current Assessment AND Plan PLAN: - SBP goal <160 - PRN antihypertensives - On Toprol at home. Continued as short-acting Lopressor for rate control Atrial fibrillation with RVR ([facility]) 01/27/2020 - Present Current Assessment AND Plan Assessment: Currently rate controlled PLAN: - PO Lopressor 25mg BID - Holding antiplatelets/OAC for now. Will need to discuss ti tonie to start OAC w/ Eliquis pending MRI results. Pulmonary BHAKTI (obstructive sleep apnea) 01/27/2020 - Present Current Assessment AND Plan Assessment: non complaint w/ CPAP at home PLAN: - educated patient on importance of CPAP and it's role and a ssociation to Afib and stroke. Other Obesity, Class III, BMI >= 40 (morbid obesity) ([facility]) E66.01 05/28/2017 - Present Current Assessment AND Plan PLAN: - Discussed diet and exercise modifications Principal Problem: Acute ischemic stroke (HCC) Active Problems: Obesity, Class III, BMI >= 40 (morbid obesity) (HCC) E66.01 BHAKTI (obstructive sleep apnea) HTN (hypertension) Atrial fibrillation with RVR (HCC) Resolved Problems: * No resolved hospital problems. * PLAN Awake oriented x3, zhang ag, heart irreg irreg, lungs cta bila t, legs no edema neurochecks Keep sbp<160 Continue metoprolol Rate control, future plan for ac Cardiology consult, already was planned for outpt visit for new afib Echo Optimize electrolytes Check TSH nsgy consult Asa and statin Pt/ot accuchecks and ssi scd legs and sqh in 48hr Please see the documented [id number] plan in the updat ed problem list. [facility] Staff Physician note of personal involvement in Care CRITICAL CARE: I personally spent 33 minutes of critical car e time involved in the care of this patient. Brittani Warren MD Staff, Neurointensive Care Neurological [place] PAGER: [phone] (2NICU for credit collections analyst) DATE of SERVICE: January 27, 2020 TIME of SERVICE: 12:27 PM This is an electronically created document. If printed, please do not remove from the chart or modify pr inted copy. plan of care on PLAN OF CARE HNO ID: [id number] Normal 01-27-20 20 Ike Guevara Author: Terrie Tobias (Pharmacist) [facility] Service: Pharmacy (0 0000) Author Type: Pharmacist Type: Plan of Care Filed: 01/27/2020 10:56 AM Note Text: MEDICATION HISTORY AND MEDICATION RECONCILIATION Patient Name:Mckenzie Cyr : 1955 Source of history:Pharmacy records: [facility] Pharmacy: Medication Nonadherence Identified: No barriers noted The above information represents the best possible medicatio n history: Yes Reconciliation completed? Yes All DISPATCH OFFICER medications addressed by LIP Additional comments: [id number] Medication List Adju stments: Medication Regimen Changes: None Medications Added: None Medications Removed: None Short-Term Medications: None Further Clarification Required: None Patient is a 30 day readmission: No Patient Interested in Bedside Delivery: No Time Spent Reviewing Patient's Medications: 15 minutes Allergies: ALLERGIES No Known Allergies Preferred Pharmacy: [facility] Pharmacy: [phone] Current DISPATCH OFFICER Medications: Prior to Admission medications as of 01/27/20 1015 Medication Sig Last Dose Taking metoprolol succinate ER (TOPROL XL) 25 mg 24 hr tablet Take 1 tablet by mouth once daily. Yes aspirin, enteric coated (ECOTRIN LOW STRENGTH) 81 mg EC tabl et Take 1 tablet by mouth once daily. Yes nitroglycerin sublingual (NITROQUICK) 0.4 mg SL tablet Disso lve 1 tablet under the tongue every 5 minutes as needed for Chest Pain. Emelia Tobias, Pharmacist January 27, 2020 10:54 AM phosphorous blood o n 2020-01-27 Phosphate [Mass/Vol] 3.4 2.7-4.8 mg/dL Normal 0 [facility] ([id number]) Comment: Performed By: #### PHOS #### [place] [address] mrsa screen on 2019 MRSA DNA KARLY+probe Ql Test performed at [facility] Normal 01-27-2020 [facility] (Unsp spec) No MRSA detected. [facility] ([id number]) Comment: Performed By: #### TROPT ### # [address] [address] mri brain wo ivcon on 2020-01-27 MRI BRAIN WO * * *Final Report* * * Normal 01-08 [facility] IVCON DATE OF EXAM: Jan 27 2020 8:42AM [facility] 0294 - MRI BRAIN WO IVCON / ([id number]) PROCEDURE REASON: Neuro deficit, subacute, progressive or fl uctuating * * * * Physician Interpretation * * * * EXAMINATION: MRI BRAIN WITHOUT IV CONTRAST CLINICAL HISTORY: Neuro deficit, subacute, progressive or fl uctuating. TECHNIQUE: Sagittal T1, axial diffusion, and axial FLAIR fat -saturated images were obtained. The overall examination is limited as the patient declined additional imaging an some routine MRI brain sequen jax were not obtained. MQ: [id number] COMPARISON: CT brain performed earlier on 01/27/2020. RESULT: Limitation: The axial FLAIR images demonstrate patient motio n artifact. Acute Change: There is a moderate size wedge-shaped area of diffusion restriction in the left superior occipital lobe consistent w ith acute ischemic infarct. Additional small wedge-shaped area of diff usion restriction in the left parietal lobe suspicious for acute i schemic infarct. Additional possible acute ischemic infarct in the r ight frontal lobe with associated petechial hemorrhage. Hemorrhage: There is extensive petechial hemorrhage noted wi thin the superior left occipital lobe infarct. There is petechial-typ e hemorrhage noted in the right frontal lobe. Mass Lesion/ Mass Effect: There is effacement of sulci in th e left occipital lobe and mild mass effect on the occipital horn le ft lateral ventricle. No midline shift. No significant mass effect. Chronic Change: Scattered patchy and confluent areas of incr eased T2 and FLAIR signal are present in the supratentorial white matter which is nonspecific but likely represents chronic microvascular isch emia. Parenchyma: No significant volume loss for age. Ventricles: Normal caliber and morphology. Skull Base: Hypothalamic and pituitary region are grossly no rmal. Craniocervical junction is within normal limits. No signific ant marrow replacement process. Vasculature: Limited evaluation. Other: Mild mucosal thickening or fluid noted in multiple pa ranasal sinuses. The visualized mastoid air cells are clear. The orb its and extracranial soft tissues are unremarkable. IMPRESSION: 1. Limited examination as detailed above. 2. Findings suggesting acute ischemic infarct with petechial hemorrhagic transformation in the superior left occipital lobe. There is effacement of sulci and mild mass effect on the left lateral ventricle. No midline shift. 3. Small area of petechial-type hemorrhage likely associated with a small area of acute ischemic infarct in the right frontal lo be. 4. Small acute ischemic infarct in the left parietal lobe. Dish Machine Operator: PATRICIA Transcribe Date/Time: Jan 27 2020 10:08A Dictated by : TONY VERDUZCO MD This examination was interpreted and the report reviewed and electronically signed by: TONY VERDUZCO MD on Jan 27 2020 10:18AM EST magnesium blood on 2020-01-27 Magnesium [Mass/Vol] 1.9 1.7-2.3 mg/dL Normal 0 [facility] ([id number]) Comment: Performed By: #### MAG #### [place] [address] lipid profile, basic on 2020-01-27 Cholesterol [Mass/Vol] 99 0-199 mg/dL Normal 020 [facility] ([id number]) Comment: Result Comment: Total Choles terol < 200 mg/dL, Desirable Total Cholesterol 200 to 239 mg/dL, Borderline high Total Cholesterol > 239 mg/d L, High Performed By: #### LIPDB ### # [facility] [address] [place], [place] [address] Cholesterol in HDL [Mass/Vol] 28 mg/dL Normal 01-27-2020 [facility] (00 000) Comment: Result Comment: Reference Ra nge: HDL Cholesterol 40- 59 mg/dL , Acceptable HDL Cholesterol >59 mg/dL, H igh; Negative risk factor for coronary heart disease HDL C holesterol <40 mg/dL, Low; Positive risk factor for cor onary heart disease Performed By: #### LIPDB ### # [facility] [address] [place], [place] [address] Cholesterol in LDL [Mass/Vol] 57 0-99 mg/dL Normal 01-27-2020 [facility] (00 000) Comment: Result Comment: LDL Choleste rol < 100 mg/dL, Optimal LDL Cholesterol 100 to 129 m g/dL, Near optimal/above optimal LDL Cholesterol 130 to 159 m g/dL, Borderline high LDL Cholesterol 160 to 189 m g/dL, High LDL Cholesterol > 189 mg/dL, Very high Secondary prevention optimal LDL Cholesterol levels are recommended to be < 70 mg/dL Performed By: #### LIPDB ### # [facility] [address] [place], [place] [address] Cholesterol in 2.04 0.00-2.53 Normal 01-27-2020 [facility] LDL/Cholesterol in HDL [Mass System (09117) ratio] Comment: Performed By: #### LIPDB ### # [facility] [address] [place], [place] [address] Cholesterol.total/Cholesterol in HDL 3.54 0.00-5.09 Nor mal 01-27-2020 [facility] [Mass ratio] [facility] ([id number]) Comment: Performed By: #### LIPDB ### # [address] [address] Non-HDL Cholesterol 71 0-129 mg/dL Normal 01-27-2020 [facility] ([id number]) Comment: Result Comment: Non HDL Chol esterol < 130 mg/dL, Optimal Non HDL Cholesterol 130 to 1 59 mg/dL, Near optimal/above optimal Non HDL Cholesterol 160 to 1 89 mg/dL, Borderline high Non HDL Cholesterol 190 to 2 19 mg/dL, High Non HDL Cholesterol > 219 mg /dL, Very high Secondary prevention optimal non HDL Cholesterol levels are recommended to be < 100 mg/d L Performed By: #### LIPDB ### # [place] [address] Triglyceride Blood 72 0-149 mg/dL Normal 01-27-2020 [facility] ([address]) Comment: Result Comment: Triglyceride s < 150 mg/dL, Normal Triglycerides 150 to 199 mg/ dL, Borderline high Triglycerides 200 to 499 mg/ dL, High Triglycerides > 499 mg/dL, V dionne high Performed By: #### LIPDB ### # [place] [address] VLDL Cholesterol 14 0-29 mg/dL Normal 01-27-2020 [facility] ([id number]) Comment: Performed By: #### LIPDB ### # [place] [address] history physical on 2020-01-27 HISTORY PHYSICAL HNO ID: [id number] Normal 01-08 [facility] Author: Rekha Bojorquez) [facility] Service: Neurology ICU ([id number]) Author Type: Physician Recycle Driver Type: HANDP Filed: 01/27/2020 3:57 AM Note Text: SERVICE DATE: 01/27/2020 SERVICE TIME: 3:56 AM NEUROLOGICAL INTENSIVE CARE UNIT HISTORY AND PHYSICAL (STROKE CARE PATH) REASON FOR STROKE EVALUATION: Aphasia, Dysarthria and Visual Changes REASON FOR NEUROLOGICAL ICU ADMISSION: Acute Ischemic Stroke Stroke Mechanism: METRICS: Initial NIHSS: 1 Rashi Coma Scale Totals (Calculated): 15 Date Patient Last Known Well: 01/21/20 Date of Patient Arrival at THIS Facility: 01/27/20 Time of Patient Arrival at THIS Facility: 021 Pre-admission: Was patient on antithrombotic agent prior to admission: Anti platelet Antiplatelet: Aspirin Premorbid Modified Lee Score: 0=0 - No symptoms at all Baseline Functional Status (i.e. ADL's, Ambulatory Status, C ognitive Issues): Independent for all ADLs. AANDOx3. Baseline unable to read or write. Subjective HPI: Patient is a 64 year old male with past medical history significant for HTN and BHAKTI (non compliant with CPAP at home). Patient w as recently diagnosed with new onset Afib 01/24 by PCP after presenting w ith episode of chest pain, nausea and dizziness and was found to be in Afib w/ RVR by EKG. Patient presents to [facility] NSICU as transfer from [place] ED with stroke-like symptoms and possible acute infarct w/ hemorrhag ic transformation on CT brain. Patient states on Sunday, he developed tunnel vision and balance issues. Yesterday, he developed sl urred speech and aphasia. He reports attempting to get up and he just fel l to the ground. This prompted ER evaluation. Patient states he's bee n under significant stress lately with the passing of his brother in November 2019 and he and his are currently in process of finding a ho use to move to [place]. He reports prior to Sunday, he was feeling 'fine', 'n o issues'. 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 He reports that he cannot read or write. He denies f ever, chills, cough, SOB, n/v/d, abdominal pain, syncope. At [place], patient initial NIH of 5 for mild dysarthria, on ly able to answer 1 question right, drift in RUE, and mild ataxia. By t he time of [facility] telestroke eval, NIH down to 1 for ataxia. CTH performed wit h findings of left parieto occipital hypodensity suggestive of ischemic st roke with hemorrhagic conversion vs possible mass w/ surrounding edema . Therefore patient transferred here for further evaluation and close mo nitoring. PAST MEDICAL HISTORY Diagnosis Date - Atrial fibrillation (HCC) - Hypertension - Obesity - Obstructive sleep apnea PAST SURGICAL HISTORY Procedure Laterality Date - HERNIA REPAIR HX 1997 umbilical - PAST SURGICAL HISTORY OF 1965 Artificial right eye FAMILY HISTORY Problem Relation Age of Onset - Cancer Brother pancreas - Coronary Artery Disease Mother - Diabetes Mother Social History Tobacco Use - Smoking status: Never Smoker - Smokeless tobacco: Never Used Substance Use Topics - Alcohol use: Yes Comment: occasional - Drug use: No MEDICATIONS Prior to Admission metoprolol succinate ER (TOPROL XL) 25 mg 24 hr tablet, Take 1 tablet by mouth once daily., Disp: 30 tablet, Rfl: 2 aspirin, enteric coated (ECOTRIN LOW STRENGTH) 81 mg EC tabl et, Take 1 tablet by mouth once daily., Disp: , Rfl: nitroglycerin sublingual (NITROQUICK) 0.4 mg SL tablet, Diss olve 1 tablet under the tongue every 5 minutes as needed for Chest Pain., Disp: 1 Bottle of 25, Rfl: 0 ALLERGIES No Known Allergies COMPLETE REVIEW OF SYSTEMS COMPLETE REVIEW OF SYSTEMS GENERAL: No weight loss, malaise or fevers HEENT: Positive for recent visual disturbance. No changes in hearing , no nose bleeds or other nasal problems. and Negative for freque nt or significant headaches NECK: Negative for lumps, goiter, pain and significant neck swelling RESPIRATORY: Negative for cough, wheezing or shortness of br eath. CARDIOVASCULAR: Negative for chest pain, leg swelling or pal pitations. GI: Negative for abdominal discomfort, blood in stools or bl ack stools or change in bowel habits. MUSCULOSKELETAL: Negative for joint pain or swelling, back p ain or muscle pain. SKIN: Negative for lesions, rash, and itching. PSYCH: Recent psychosocial stressors HEMATOLOGY/LYMPHOLOGY: Negative for prolonged bleeding, brui sing easily or swollen nodes. ALLERGIC/IMMUNOLOGIC: Negative for autoimmune diseases and a llergies. NEURO: SEE HPI Objective BP 161/119 Pulse 96 Resp 19 Ht 180.3 cm (5' 11) Wt 130.7 kg (288 lb 2.3 oz) SpO2 98% BMI 40.19 kg/m? PHYSICAL EXAM: GCS: Eyes: 4. Spontaneous (Right eye prosthesis) Verbal: 5: Oriented Motor: 6: Obeys Motor commands Total: 15 CV: Irregularly irregular, rate controlled. Normal S1/S2 Pulm: CTA bilaterally, even and unlabored on RA. GI/: Abdomen obese, soft, non tender, non distended Skin/Extremities: Edema- No Peripheral pulses- Present all e xtremities Wounds/Drsgs- No Breakdown- No NEUROLOGICAL: MOTOR STRENGTH: Upper and lower extremity 5/5 bilaterally SENSATION: Intact light touch and temperature COORDINATION: Finger-to- nose-finger intact bilaterally and Uqkl-[id number] intact bilaterally iNIHSS LOC: 0 - alert and responsive(Initial NIH performed by [facility] t elestroke doc at [facility] prior to transfer) 0(Initial NIH performed by [facility] tel estroke doc at [facility] prior to transfer) LOC Questions: 0 - both correct 0 LOC Commands: 0 - both correct 0 LOC Normal Gaze: 0 - normal gaze 0 Visual Kendall: 0 - no visual loss 0 Facial Palsy: 0 - normal 0 Motor Left Arm: 0 - no drift 0 Motor Right Arm: 0 - no drift 0 Motor Left Le - no drift 0 Motor Right Le - no drift 0 Limb Ataxia: 1 - ataxia in upper or lower extremity 1 Sensory: 0 - normal 0 Language: 0 - normal 0 Dysarthria: 0 - normal 0 Extinction/Neglect: 0 - normal, none detected (or visual los s alone) 0 Initial NIHSS: 1 (01/26/20 2338 : Rekha Valdez ([place])) 1 STROKE CARE AND PREVENTION CHECKLIST Is the patient on VTE prophylaxis: Mechanical prophylaxis;No , pharmacological prophylaxis contraindicated Mechanical intervention type: Intermittent compression stock ing(s) Reason for no pharmacological VTE prophylaxis: Active bleedi ng GLYCEMIC Control Medications: Not Diabetic Stroke BP Goals: Other - see comment(SBP <160) Stroke BP Control: BP needs further management Stroke IVF/Nutrition: Diet TEMPERATURE Control: Normothermic Does the patient need THERAPY: Yes Therapy involvement: PT;OT DATA: Diagnostic tests reviewed for today's visit: Most recent labs and imaging results. personally reviewed fr om outside hospital. Lines, Drains, and Airways None PERSONAL INVOLVEMENT IN CARE: Reviewing initiation, response s and adjustments to therapies, coordination of care, and updating family with Staff Physician, Dr. Warren. Assessment AND Plan Active Hospital Problems as of 01/27/2020 Noted - Resolved Hospital * (Principal) Acute ischemic stroke (HCC) 01/27/2020 - Presen t Current Assessment AND Plan Assessment: Acute L parieto occipital infarct w/ hemorrhagic conversion Suspect cardio embolic in etiology in setting of new onset A fib, not on OAC Underlying BHAKTI- non compliant with CPAP - Not tPA candidate given presentation outside of window - CTA negative for LVO or significant stenosis PLAN: - Holding antiplatelets/OAC and DVT chemoprophylaxis for now - SCDs - repeat CTH @ 0500 ([address] at OSH) - MRI brain wwo contrast later this AM to r/o underlying mas s lesion - Neuro checks - Monitor tele. Rate control - Normotensive BP goal as symptom onset >24 hours. <160 for now - Echocardiogram - Daily labs - Trend troponin - Passed bedside swallow eval. Heart healthy diet - PT/OT eval Atrial fibrillation with RVR ([facility]) 01/27/2020 - Present Current Assessment AND Plan Assessment: Currently rate controlled PLAN: - PO Lopressor 25mg BID - Holding antiplatelets/OAC for now. Will need to discuss ti tonie to start OAC w/ Eliquis pending MRI results. HTN (hypertension) 01/27/2020 - Present Current Assessment AND Plan PLAN: - SBP goal <160 - PRN antihypertensives - On Toprol at home. Continued as short-acting Lopressor for rate control Obesity, Class III, BMI >= 40 (morbid obesity) ([facility]) E66.01 05/28/2017 - Present Current Assessment AND Plan PLAN: - Discussed diet and exercise modifications BHAKTI (obstructive sleep apnea) 01/27/2020 - Present Current Assessment AND Plan Assessment: non complaint w/ CPAP at home PLAN: - educated patient on importance of CPAP and it's role and a ssociation to Afib and stroke. Medication and Non-Pharmacologic VTE Prophylaxis/Anticoagula nts 01/28/20 0600 activity - mobilize patient ([place], [place]) 01/27/20 0245 pneumatic compression stockings ([place], [place]) VTE Prophylaxis: pneumatic compression stockings Critical Care Time Spent: 40 Minutes. SIGNATURE: Rekha Valdez PA-C PATIENT NAME: Jose Cyr DATE: January 27, 2020 TIME: 3:57 AM PAGER/CONTACT #: hgb a1c on HbA1c (Bld) [Mass fraction] 7.3 4.0-5.6 % High [facility] ([id number]) Comment: Result Comment: [place] Cherise betes Association guidelines indicate that the patients with HgA1c in the r ilsa 5.7 ? 6.4% are at increased risk for development of diab etes, and intervention by lifestyle modification may be beneficial. HgA1c gre ater or equal to 6.5% is considered diagnostic of diabetes. Performed By: #### TROPT ### # [place] [address] HbA1c (Bld) [Mass fraction] 163 mg/dL Normal [facility] (36657) Comment: Performed By: #### TROPT ### # [facility] [address] [place] [address] hemogram/diff on 27-01-19 Abs Immature Grans 0.02 0.00-0.05 thou/cmm Normal 01-27-2020 [facility] (00 000) Comment: Performed By: #### [id number] ### # [facility] [address] [place] [address] Abs Neut (ANC) 5.12 1.78-5.38 thou/cmm Normal 01-27-2020 [facility] ([address]) Comment: Performed By: #### [id number] ### # [facility] [address] [place] [address] Abs. Baso 0.04 0.01-0.08 thou/cmm Normal 01-27-2020 [facility] ([address]) Comment: Performed By: #### [id number] ### # [place] [address] Abs. Holmes 0.59 0.30-0.82 thou/cmm Normal 01-27-2020 [facility] ([address]86) Comment: Performed By: #### [id number] ### # [place] [address] Basophils/100 WBC (Bld) 0.5 % Normal 2019 [facility] (16965) Comment: Performed By: #### [id number] ### # [place] [id number] Eosinophils (Bld) 0.13 0.04-0.54 thou/cmm Normal 01-27-2020 [facility] [employer] [facility] [#/Vol] [facility] ([address]71) Comment: Performed By: #### [id number] ### # [place] [id number] Eosinophils/100 WBC (Bld) 1.6 % Normal 01-08 [facility] ([address]234) Comment: Performed By: #### [id number] ### # [place] [id number] Erythrocyte distribution 13.3 11.6-14.4 % Normal 01-26 [facility] width (RBC) [Ratio] System (99072) Comment: Performed By: #### [id number] ### # [facility] [address] [place], [place] [address] Hematocrit (Bld) [Volume 42.7 40.1-51.0 % Normal 01-26 [facility] fraction] System (00 000) Comment: Performed By: #### [id number] ### # [facility] [address] [place], [place] [address] Hemoglobin (Bld) 13.7 13.7-17.5 g/dL Normal 01-27-2020 [facility] [Mass/Vol] System (0 0000) Comment: Performed By: #### [id number] ### # [facility] [address] [place], [place] [address] Immature Grans 0.20 % Normal 01-27-2020 [facility] ([address]55) Comment: Performed By: #### [id number] ### # [facility] [address] [place], [place] [address] Lymphocytes (Bld) 2.41 0.84-2.85 thou/cmm Normal 01-27-2020 [facility] [#/Vol] [facility] ([address]59) Comment: Performed By: #### [id number] ### # [facility] [address] [place], [place] [address] Lymphocytes/100 WBC (Bld) 29.0 % Normal 01-08 [facility] (29661) Comment: Performed By: #### [id number] ### # [facility] [address] [place], [place] [address] MCH (RBC) [Entitic mass] 27.5 25.7-32.2 pg Normal 01-26 [facility] (00 000) Comment: Performed By: #### [id number] ### # [facility] [address] [place], [place] [address] MCHC (RBC) [Mass/Vol] 32.1 32.3-36.5 % Low 01-27-20 20 [place] [employer] [facility] ([address]11) Comment: Performed By: #### [id number] ### # [facility] [address] [place], [place] [address] MCV (RBC) [Entitic vol] 85.7 83.2-95.6 fl Normal 2019 [facility] (00 000) Comment: Performed By: #### [id number] ### # [facility] [address] [place], [place] [address] Monocytes/100 WBC (Bld) 7.1 % Normal 2019 [facility] (71026) Comment: Performed By: #### [id number] ### # [facility] [address] [place], [place] [address] Platelet mean volume (Bld) 10.7 8.7-12.0 fl Normal [facility] [Entitic vol] System (37301) Comment: Performed By: #### [id number] ### # [facility] [address] [place], [place] [address] Platelets (Bld) [#/Vol] 280 141-365 thou/cmm Normal 2019 [facility] (00 000) Comment: Performed By: #### [email or web address] ### # [facility] [facility] [address] [place], [place] [address] RBC (Bld) [#/Vol] 4.98 4.63-6.08 mil/cmm Normal 01-27-2020 [facility] (00 000) Comment: Performed By: #### CBCD1 ### # [facility] [address] [place], [place] [address] RDW SD 41.2 36.1-45.8 fl Normal 01-27-2020 [facility] ([id number]) Comment: Performed By: #### CBCD1 ### # [facility] [address] [place], [place] [address] Seg Neutrophil 61.6 % Normal 01-27-2020 [facility] ([id number]) Comment: Performed By: #### CBCD1 ### # [facility] [address] [place], [place] [address] WBC (Bld) [#/Vol] 8.31 4.23-9.07 thou/cmm Normal 01-27-2020 [facility] (00 000) Comment: Performed By: #### CBCD1 ### # [facility] [address] [place] [address] [address] brain wo ivcon o n 2020-01-27 CT BRAIN WO IVCON * * *Final Report* * * Normal 01-27-2020 [facility] DATE OF EXAM: Jan 27 2020 4:15[facility] 0504 - CT BRAIN WO IVCON / ([id number]) PROCEDURE REASON: Intracranial hemorrhage * * * * Physician Interpretation * * * * EXAMINATION: CT BRAIN WITHOUT IV CONTRAST CLINICAL HISTORY: Intracranial hemorrhage. TECHNIQUE: Serial axial images without IV contrast were obta ined from the vertex to the foramen magnum. MQ: [id number] CT Dose-Length Product (DLP): 949 mGy*cm CT Dose Reduction Employed: Iterative recon. COMPARISON: CT head from outside institution 01/26/2020 RESULT: Post-operative change: None. Acute change: There is hypoattenuation involving the left oc cipital petechial hemorrhage suspicious for an area of edema due to acute ischemic infarct. Subtle small area of hypoattenuation invol ving left parietal lobe cortex suspicious for an area of acute ischemi c infarct.. Hemorrhage: There is acute parenchymal hemorrhage in the sup erior left occipital lobe with a petechial pattern involving multiple g yri. There is a single gyriform area of probable petechial hemorrhage i n the lateral right frontal lobe. Mass Lesion / Mass Effect: There is no evidence of an intrac ranial mass or extraaxial fluid collection. Mild mass effect on the occi pital horn left lateral ventricle. There is some effacement of sulci in the left occipital lobe. No other significant mass effect. No midline shift. Chronic change: Patchy foci of low attenuation coefficient a re present within the supratentorial white matter which is a nonspecifi c finding but likely represents moderate microvascular ischemia. Parenchyma: There is no significant volume loss. The brain p arenchyma is otherwise within normal limits for age. Ventricles: The ventricles are within normal limits of size and configuration for age. Paranasal sinuses and skull base: Previous right enucleation with prosthetic right globe is noted. Mucosal thickening noted in the bilateral maxillary sinuses and left sphenoid sinus. The rem aining visualized paranasal sinuses are grossly clear. The skull ba se and imaged soft tissues are otherwise unremarkable. IMPRESSION: 1. Petechial parenchymal hemorrhage in the superior left occ ipital lobe likely due to hemorrhagic transformation of acute ischemic i nfarct causing mild mass effect as detailed above. 2. Small focus of petechial-type hemorrhage in the right fro ntal lobe. 3. Probable small acute ischemic infarct in the left parieta l lobe. 4. Chronic small vessel ischemic changes of the supratentori al white matter. Probable chronic sinusitis changes. Dish Machine Operator: PATRICIA Transcribe Date/Time: Jan 27 2020 10:31A Dictated by : TONY VERDUZCO MD This examination was interpreted and the report reviewed and electronically signed by: TONY VERDUZCO MD on Jan 27 2020 10:40AM EST consult on CONSULT HNO ID: [id number] Normal 01-27-2020 Ike Guevara Author: [facility] Service: Cardiovascular Medicine ([id number]) Author Type: Physician Type: Consults Filed: 01/27/2020 5:27 PM Note Text: CRITICAL CARE CONSULT NOTE SERVICE DATE: 01/27/2020 SERVICE TIME: 2:42 PM REASON FOR CONSULT: Afib REQUESTING PHYSICIAN: Dr Warren? ADMITTING PROVIDER: Brittani Warren SERVICE DATE: 01/27/2020 SERVICE TIME: 2:42 PM Admission Date: 01/27/2020 AGE: [age] year old LOS: 0 days Subjective 64yo M h/o obesity, HTN, newly-diagnosed Afib (01/24), BHAKTI i s presenting after a presentation to [facility] concerning for an a cute stroke. Neurosurgery was brought on board because there was evidence of hemorrhagic conversion on the initial CTH. This was later co nfirmed with MRI brain showing acute ischemic infarct with petechial hemo rrhagic transformation in superior left occipital lobe. Patient has been started on lopressor 25mg BID and is on ASA. Per neurology further A C will be held off for at least another 24 hours. His Chadsvasc is 3, we wi ll consider starting AC when able. He is amenable to continuing this int o the future, he states he had not been following with a astrobiologist prio r to this presentation. 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 Acute Ischemic Stroke (Hcc) Bhakti (Obstructive Sleep Apnea) Htn (Hypertension) Atrial Fibrillation With Rvr (Hcc) PAST MEDICAL HISTORY Diagnosis Date - Atrial fibrillation (HCC) - Hypertension - Obesity - Obstructive sleep apnea PAST SURGICAL HISTORY Procedure Laterality Date - HERNIA REPAIR HX 1997 umbilical - PAST SURGICAL HISTORY OF 1965 Artificial right eye Social History Tobacco Use - Smoking status: Never Smoker - Smokeless tobacco: Never Used Substance Use Topics - Alcohol use: Yes Comment: occasional - Drug use: No VITAL SIGNS (last 24hrs min/max): Temp Av.4 ?C (97.6 ?F) Min: 36.3 ?C (97.3 ?F) Max: 36.6 ?C (97.9 ?F) Pulse Av.3 Min: 76 Max: 96 No data recorded Cuff BP Min: 126/87 Max: 161/119 Pain Level: 0 Vital signs reviewed. BP 126/87 Pulse 76 Temp (Src) 97.9 (Temporal) Resp 19 Ht 5' 11 (1.80m) Wt 288 lb 2.3 oz (130.7kg) SpO2 95% BMI 40.21 kg/(m2). O2 Therapy: Room Air Temp (24hrs), Av.4 ?C (97.6 ?F), Min:36.3 ?C (97.3 ?F), Max:36.6 ?C (97.9 ?F) NET FLUID BALANCE Intake/Output Summary (Last 24 hours) at 01/27/2020 1442 Last data filed at 01/27/2020 0754 Gross per 24 hour Intake 303 ml Output ? Net 303 ml MEDICATIONS Current Facility-Administered Medications Medication Dose Route Frequency - docusate 100 mg oral liquid (DIOCTO, COLACE) 100 mg ORAL/F EEDING TUBE BID - bisacodyl 10 mg suppository (DULCOLAX) 10 mg RECTAL DAILY PRN - NaCl 0.9% 3-5 mL 3-5 mL INTRAVENOUS q 12 H - acetaminophen 650 mg tab(s) (TYLENOL) 650 mg ORAL/FEEDING TUBE q 4 H PRN - oxyCODONE IR 5-10 mg tab(s) (ROXICODONE) 5-10 mg ORAL/FEED ING TUBE q 4 H PRN - hydrALAZINE 5 mg injection (APRESOLINE) 5 mg INTRAVENOUS q 1 H PRN - potassium chloride ER 20-40 mEq tab(s) (K-DUR, KLOR-CON) 2 0-40 mEq ORAL/FEEDING TUBE PRN Or - potassium chloride iv piggyback 20 mEq/100 mL 20 mEq INTRA VENOUS PRN - magnesium sulfate in water 2 g in sterile water 50 ml 2 g INTRAVENOUS PRN - sodium phosphate 45 mmol in NaCl 0.9% 250 mL 45 mmol INTRA VENOUS PRN - calcium gluconate 4 g in NaCl 0.9% 250 mL 4 g INTRAVENOUS PRN - perflutren lipid microspheres 1.1 mg/mL 1.3 mL injection ( DEFINITY) 1.3 mL INTRAVENOUS DIRECTED PRN - metoprolol tartrate (short acting) 25 mg tab(s) (LOPRESSOR ) 25 mg ORAL/FEEDING TUBE q 12 H - iv contrast (radiology procedure) INTRAVENOUS DIRECTED PRN - fentaNYL 50 mcg/mL 50 mcg injection (SUBLIMAZE) 50 mcg INT RAVENOUS ONCE - potassium chloride ER 40 mEq tab(s) (K-DUR, KLOR-CON) 40 m Eq ORAL ONCE - magnesium sulfate in water 2 g in sterile water 50 ml 2 g INTRAVENOUS ONCE Lines, Drains, and Airways Line Peripheral 01/27/20 Assessment Right Antecubital 18 Gauge le ss than 1 day PHYSICAL EXAM PERFORMED: Cardiovascular: Irregular rhythm, M/R/G Respiratory: Clear to auscultation No data recorded Abdomen: Soft and Nontender Extremities: Edema- No Neurologic: Awake, oriented, Alert, Follows commands and Mov ing all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 UNRECOGNIZED SECTION Source Comments In the event this information is protected by the Federal Confidentiality of Alcohol and Drug Abuse Patient Records regulations: The Federal rules restrict any use of the information to criminally investigate or prosecute any alcohol or drug abuse patient.[facility] the event this information is protected by the Federal Confidentiality of Alcohol and Drug Abuse Patient Records regulations: The Federal rules restrict any use of the information to criminally investigate or prosecute any alcohol or drug abuse patient.[facility] the event this information is protected by the Federal Confidentiality of Alcohol and Drug Abuse Patient Records regulations: The Federal rules restrict any use of the information to criminally investigate or prosecute any alcohol or drug abuse patient.[facility] the event this information is protected by the Federal Confidentiality of Alcohol and Drug Abuse Patient Records regulations: The Federal rules restrict any use of the information to criminally investigate or prosecute any alcohol or drug abuse patient.[facility] the event this information is protected by the Federal Confidentiality of Alcohol and Drug Abuse Patient Records regulations: The Federal rules restrict any use of the information to criminally investigate or prosecute any alcohol or drug abuse patient.[facility] UNRECOGNIZED CONTENT PROVIDED BELOW FOR UNRECOGNIZED SECTION Reason for Visit Reason Comments Recheck UNRECOGNIZED CONTENT PROVIDED BELOW FOR UNRECOGNIZED SECTION Miscellaneous Notes Result QuickNote - Markus Woods III - 05/12/2020 9:58 AM EDTCarl, You do have diabetes that is not well controlled. I recommend eating less sugar, bread, potato, pasta, rice, corn, corn syrup. Try to walk or exercise 150 minutes per week. Start metformin 500 mg before breakfast and before supper. This is not likely to cause weight gain and will not cause blood sugar to go too low. You should establish with a family physician in [place] and obtain follow-up labs in 3 months. The lipids, kidney and liver function tests, and other lab results are fine Markus Woods III, MD, FAAFP documented in this encounter
--- OUTSIDE RECORDS SUMMARY | 2020-06-22 12:53 | XMS RPT_ITS | CCD ---
:1955 External Reference #:[id number] Author Organization [facility] Care Team Providers Name Role Phone Rob WOODS III Unavailable Unavailable CASTRO Unavailable Unavailable REFERRING, WO ID~[id number] Unavailable Unavailable Lucinda PAUL Attending Unavailable SELF Referring Unavailable Rob WOODS Primary Care Unavailable Rob Woods Primary Care Provider Medications Medication Name Sig Date Prescriber Location amLODIPine amLODIPine (NORVASC) 04-12-2020 - [facility] 2.5 mg tablet 05-10-2020 (57663) Indications: Hypertension, unspecified type Take 1 tablet by mouth once daily. 30 tablet 11 05/10/2020 Active Comment: Take 1 tablet by mouth once daily. apixaban apixaban (ELIQUIS) 5 03-09-2020 - [facility] mg tab(s) Take 1 05-10-2020 (70314) tablet by mouth twice daily. 60 tablet 11 05/10/2020 Active Comment: Take 1 tablet by mouth twice daily. busPIRone busPIRone (BUSPAR) 5 mg 04-03-2020 [facility]us Rivas [facility]ely [facility] tablet Indications: (80030) Situational anxiety Take 1 tablet by mouth three times daily as needed (anxiety). 30 tablet 5 04/03/2020 Active Comment: Take 1 tablet by mouth three times daily as needed (anxiety). carvedilol carvedilol (COREG) 03-01-2020 - [facility] 12.5 mg tablet TAKE 1 05-07-2020 (32502 ) TABLET BY MOUTH TWICE A DAY WITH MEAL/FOOD 90 tablet 3 05/07/2020 Active Comment: TAKE 1 TABLET BY MOUTH TWICE A DAY WITH MEAL/FOOD Citalopram citalopram (CELEXA) 20 mg 04-03-2020 [facility] tablet Indications: (57092) Situational anxiety Take 1 tablet by mouth once daily. 30 tablet 12 04/03/2020 Active Comment: Take 1 tablet by mouth once daily. Lisinopril lisinopril (ZESTRIL, 03-11-2020 [facility] (60441) PRINIVIL) 20 mg tablet Take 1 tablet by mouth once daily. 30 tablet 03/11/2020 Active Comment: Take 1 tablet by mouth once daily. metFORMIN metFORMIN (GLUCOPHAGE) 500 05-12-2020 [facility] mg tablet Indications: Type (33675) 2 diabetes mellitus without complication, without long-term current use of insulin (HCC) Take 1 tablet by mouth twice daily with meals. . 60 tablet 05/12/2020 Active Comment: Take 1 tablet by mouth twice daily with meals. . Nitroglycerin nitroglycerin sublingual 01-26-2020 [facility] (NITROQUICK) 0.4 mg SL (4419 5) tablet Dissolve 1 tablet under the tongue every 5 minutes as needed for Chest Pain. 1 Bottle of 25 0 01/26/2020 Active Comment: Dissolve 1 tablet under the tongue every 5 minutes as needed for Chest Pain. Problems Active Problems Category Problem Name Status Date Location Acute cerebrovascular Ischemic stroke Active 01-27-2020 [facility] disease (08825) Anxiety disorders Severe anxiety (panic) Active 04-03-2020 [facility] (18939) Cardiac dysrhythmias Atrial fibrillation Active 01-27-2020 [facility] (67029) Congestive heart Heart failure with Active 01-28-2020 [facility] failure; nonhypertensive reduced ejection (10289) fraction Diabetes mellitus Type 2 diabetes Active 01-29-2020 [facility] without complication mellitus without (44 195) complication Disorders of lipid Hyperlipidemia Active [facility] metabolism (34669) Essential hypertension Hypertensive disorder Active [address] [place] [address] (36717) Other nervous system Compression of brain Active 01-28-2020 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 (84777) Other nutritional; Morbid obesity Active 05-28-2017 [facility] endocrine; and metabolic (44 195) disorders Residual codes; Obstructive sleep apnea Active 01-27-2020 - C [facility] unclassified syndrome (20057) Past or Other Problems Category Problem Name Status Date Location Abdominal hernia Irreducible incisional Completed 11-04-2013 - C [facility] hernia (54911) Other gastrointestinal Enterocutaneous fistula Completed 017 - [facility] disorders (49471) Results Result Name Value Range Unit Interpretation Flag Date Location cnco on 2020-05-13 [facility] Letter Text Normal [facility]-13-2020 [facility] (41401) progress on 2020-04 PROGRESS HNO ID: [id number] Normal 05-07-2020 [facility] Author: Markus Woods III [place] ([id number]) Service: ? Author Type: Physician Type: Progress [...] Cholesterol [Mass/Vol] 133 <200 mg/dL Normal 020 [facility] (40196) Comment: Result Comment: <200 mg/dL, Desirable 200-239 mg/dL, Borderline hi gh >239 mg/dL, High Performed By: #### CBC, CMP, LIPNF #### [facility] [address] [place], [place] [address] Cholesterol in HDL [Mass/Vol] 33 >39 mg/dL Low 05-07-2020 [facility] (67085) Comment: Result Comment: 40-59 mg/dL, Acceptable >59 mg/dL, High: Negative ri sk factor for coronary heart disease <40 mg/dL, Low: Positive ris k factor for coronary heart disease Performed By: #### CBC, CMP, LIPNF #### [facility] [address] [place], [place] [address] Cholesterol in LDL 78 <100 mg/dL Normal 05-07-2020 [facility] [Mass/Vol] [place] (14837) Comment: Result Comment: <100 mg/dL, Optimal 100-129 mg/dL, Near optimal/ above optimal 130-159 mg/dL, Borderline hi gh 160-189 mg/dL, High >189 mg/dL, Very high Secondary prevention optimal LDL Cholesterol levels are recommended to be < 70 mg/dL Performed By: #### CBC, CMP, LIPNF #### [facility] [address] [place] [address] Fasting Time 13 hrs Normal 05-07-2020 [facility] (75549) Comment: Performed By: #### CBC, CMP, LIPNF #### [facility] [address] [place] [address] LDL:HDL Ratio 2.36 <2.54 Normal 05-07-2020 [facility] (16852) Comment: Result Comment: Reference: 1. National Cholesterol Educ ation Program ATP III Guideline At-A-Glance Quick Desk Reference: National Heart, Lung, and Blood [place]. National Institutes of Health. 2001: NIH Publication No. 01-3305. 2. An International Atherosc lerosis Society position paper: global recommendations for the management of dyslipidemia: executive summary, Atherosclerosis. 2014: 232(2):410-413. Performed By: #### CBC, CMP, LIPNF #### [facility] [address] [place] [address] Non HDL Cholesterol 100 <130 mg/dL Normal 05-07-2020 [facility] (68608) Comment: Result Comment: <130 mg/dL, Optimal 130-159 mg/dL, Near optimal/ above optimal 160-189 mg/dL, Borderline hi gh 190-219 mg/dL, High >219 mg/dL, Very high Secondary prevention optimal non HDL Cholesterol levels are recommended to be < 100 mg/dL Performed By: #### CBC, CMP, LIPNF #### [facility] [address] [place], [place] [address] TC:HDL Ratio 4.03 <5.10 Normal 05-07-2020 [facility] (88517) Comment: Performed By: #### CBC, CMP, LIPNF #### [facility] [address] [place] [address] Triglyceride [Mass/Vol] 111 <150 mg/dL Normal 2019 [facility] (46238) Comment: Result Comment: <150 mg/dL, Normal 150-199 mg/dL, Borderline hi gh 200-499 mg/dL, High >499 mg/dL, Very high Performed By: #### CBC, CMP, LIPNF #### [facility] [address] [place] [address] VLDL Cholesterol 22 <30 mg/dL Normal 05-07-2020 [facility] (27361) Comment: Performed By: #### CBC, CMP, LIPNF #### [place] [address] hemoglobin a1c on HbA1c (Bld) [Mass fraction] 169 mg/dL Normal [facility] (03847) Comment: Result Comment: eAG: (Estima enmanuel average glucose) is a calculated value from HgbA1c and is retail account representative of the average blood glucose level in the last 2-3 month period. Performed By: #### CBC, CMP, LIPNF #### [facility] [address] [place] [address] HbA1c (Bld) [Mass fraction] 7.5 4.3-5.6 % High [facility] (02884) Comment: Result Comment: [place] Cherise betes Association guidelines indicate that patients with HgbA1c in the range 5.7-6.4% are at increased risk for development of diabetes, and intervention by lifestyle modification may be beneficial. HgbA1c greater o r equal to 6.5% is considered diagnostic of diabetes. Performed By: #### CBC, CMP, LIPNF #### [facility] [address] [place] [address] comp metabolic panel on 2020-05-07 Albumin [Mass/Vol] 4.3 3.9-4.9 g/dL Normal 05-07-2020 [facility] (14644) Comment: Performed By: #### CBC, CMP, LIPNF #### [facility] [address] [place], [place] [address] ALP [Catalytic activity/Vol] 89 38-113 U/L Normal 0 05-07-2020 [facility] (66226) Comment: Performed By: #### CBC, CMP, LIPNF #### [facility] [address] [place], [place] [address] ALT [Catalytic activity/Vol] 12 10-54 U/L Normal 0 05-07-2020 [facility] (65313) Comment: Performed By: #### CBC, CMP, LIPNF #### [facility] [address] [place], [place] [address] Anion gap [Moles/Vol] 15 9-18 mmol/L Normal 05-07-20 [facility] (79617) Comment: Performed By: #### CBC, CMP, LIPNF #### [facility] [address] [place], [place] [address] AST [Catalytic activity/Vol] 18 14-40 U/L Normal 0 05-07-2020 [facility] (50964) Comment: Performed By: #### CBC, CMP, LIPNF #### [facility] [address] [place], [place] [address] Bilirubin [Mass/Vol] 1.1 0.2-1.3 mg/dL Normal 0 [facility] (58635) Comment: Performed By: #### CBC, CMP, LIPNF #### [facility] [address] [place], [place] [address] Calcium [Mass/Vol] 9.3 8.5-10.2 mg/dL Normal 05-07-2020 [facility] (31092) Comment: Performed By: #### CBC, CMP, LIPNF #### [facility] [address] [place], [place] [address] Chloride [Moles/Vol] 101 97-105 mmol/L Normal 0 [facility] (60109) Comment: Performed By: #### CBC, CMP, LIPNF #### [facility] [address] [place], [place] [address] CO2 [Moles/Vol] 27 22-30 mmol/L Normal 05-07-2020 [facility] (76313) Comment: Performed By: #### CBC, CMP, LIPNF #### [facility] [address] [place] [address] Creatinine [Mass/Vol] 1.21 0.73-1.22 mg/dL Normal 05-07-20 20 [facility] (79669) Comment: Performed By: #### CBC, CMP, LIPNF #### [facility] [address] [place], [place] [address] eGFR- Amer. >60 Normal 05-07-2020 [facility] (21452) Comment: Performed By: #### CBC, CMP, LIPNF #### [place] [address] [place] [address] GFR/1.73 sq M predicted >60 mL/min/{1.73_m2} Normal 05-07-2020 [facility] among non-blacks MDRD [place] (78171) (S/P/Bld) [Vol rate/Area] Comment: Result Comment: eGFR [...] Performed By: #### RANDAL CMP, LIPNF #### [facility] [address] [place], [place] [address] Glucose [Mass/Vol] 134 74-99 mg/dL High 05-07-2020 [facility] (79545) Comment: Result Comment: The [place] Diabetes Association (ADA) provides guidance for cutoff [...] of diabetes. Reference: Standards of [facility] Care in Diabetes 2016, [place] Diabetes Association. Diabetes Care. 2016.39(Suppl 1). Performed By: #### CBC CMP, LIPNF #### [facility] [address] [place], [place] [address] Potassium [Moles/Vol] 3.9 3.7-5.1 mmol/L Normal 05-07-20 [facility] (47372) Comment: Performed By: #### CBC CMP, LIPNF #### [facility] [address] [place], [place] [address] Protein [Mass/Vol] 7.8 6.3-8.0 g/dL Normal 05-07-2020 [facility] (85004) Comment: Performed By: #### CBC, CMP, LIPNF #### [facility] [address] [place], [place] [address] Sodium [Moles/Vol] 143 136-144 mmol/L Normal 05-07-2020 [facility] (93895) Comment: Performed By: #### CBC, CMP, LIPNF #### [facility] [address] [place], [place] [address] Urea nitrogen [Mass/Vol] 22 9-24 mg/dL Normal 05-07 [facility] (58499) Comment: Performed By: #### CBC, CMP, LIPNF #### [facility] [address] [place], [place] [address] cnov on 2020-05-07 CNOV Office Visit (LAB) Normal 05-07-2020 [place] JOSE Bell ([id number]) 1955 [facility] Time Provider Department (76003) 05/07/20 9:45 AM LAB [facility] During your visit today, we [...] should establish with a family physician in [facility] and obtain follow-up labs in 3 months. The lipids, kidney and liver function tests, and other lab results are fine Markus Woods III, MD, FAAFP Referring Provider: MARKUS WOODS III [[id number]] Allergies As of Date: 05/07/2020 (No Known Allergies) Date Reviewed: 05/07/2020 Reviewed by: Lexie Ramos Ma - Fully Assessed Visit Diagnoses:Type 2 diabetes mellitus without complicatio n, without long-term current use of insulin (HCC) [E11.9] Hyperlipidemia LDL goal <100 [E78.5] Hypertension, unspecified type [I10] Order(s):COMP METABOLIC PANEL [SQCMP] Order #: [id number]. #:[id number] HGB A1C [VVNIP9O] Order #: [id number]. #:[id number] LIPID PANEL BASIC [SQLIPB] Order #: [id number]. #:[id number] Prescriptions as of 05/07/2020 Sig: CARVEDILOL [...] by MARKUS WOODS III, MD on 05/13/20 [facility] Normal 05-07-20 [place] JOSE Bell ([id number]) 1955 M [place] Date Time Provider Department (06062) 05/07/20 9:00 AM MARKUS WOODS III During [...] III MD Referring Provider: MARKUS WOODS III [[id number]] Allergies As of Date: 05/07/2020 (No Known Allergies) Date Reviewed: 05/07/2020 Reviewed by: Lexie Ramos Ma - Fully Assessed Reason for Visit: Recheck [92] Primary Visit Diagnosis:Atrial fibrillation, unspecifi ed type ([facility]) [I48.91] Other Visit Diagnoses:Hypertension, unspecified type [I10] BHAKTI (obstructive sleep apnea) [G47.33] Obesity, Class III, BMI >= 40 (morbid obesity) ([facility]) E66.01 [E66.01] Severe anxiety with panic [F41.0] Type 2 diabetes mellitus without complication, without long-term current use of insulin ([facility]) [E11.9] Order(s):carvedilol (COREG) 12.5 mg tabletTAKE [...] on 2020-05-07 Average glucose 169 mg/dL 05-07-2020 [facility] Estimated from (4419 5) glycated hemoglobin mass conc (Bld) HbA1c (Bld) [Mass 7.5 4.3 - 5.6 % % High 05-07-2020 [place] [facility] fraction] (55226) Albumin [Mass/Vol] 4.3 3.9 - 4.9 g/dL 05-07-2020 [facility] g/dL (47129) ALP [Catalytic 89 38 - 113 U/L U/L 05-07-2020 C [facility] activity/Vol] (37954 ) ALT [Catalytic 12 10 - 54 U/L U/L 05-07-2020 [facility] activity/Vol] (16639 ) Anion gap [Moles/Vol] 15 9 - 18 mmol/L 05-07-20 20 [facility] mmol/L (07486) AST [Catalytic 18 14 - 40 U/L U/L 05-07-2020 [facility] activity/Vol] (55498 ) Bilirubin [Mass/Vol] 1.1 0.2 - 1.3 mg/dL 0 [facility] mg/dL (44664) Calcium [Mass/Vol] 9.3 8.5 - 10.2 mg/dL 05-07-2020 [facility] mg/dL (63700) Chloride [Moles/Vol] 101 97 - 105 mmol/L 0 [facility] mmol/L (85622) Cholesterol 133 <200 mg/dL mg/dL 05-07-2020 [facility] [Mass/Vol] (48248) Cholesterol in HDL 33 >39 mg/dL mg/dL Low 05-07-2020 [facility] [Mass/Vol] (41112) Cholesterol in LDL 78 <100 mg/dL mg/dL 05-07-2020 [facility] [Mass/Vol] (50466) Cholesterol in 2.36 <2.54 05-07-2020 [facility] LDL/Cholesterol in ( 56054) HDL [Mass ratio] Cholesterol in VLDL 22 <30 mg/dL mg/dL 05-07-2020 [facility] [Mass/Vol] (93519) Cholesterol non HDL 100 <130 mg/dL mg/dL 0 [facility] [Mass/Vol] (29063) Cholesterol.total/Cho 4.03 <5.10 05-07-20 20 [facility] lesterol in HDL [Mass (44309) ratio] CO2 [Moles/Vol] 27 22 - 30 mmol/L 05-07-2020 [facility] mmol/L (05477) Creatinine [Mass/Vol] 1.21 0.73 - 1.22 mg/dL 2019 [facility] mg/dL (54249) Fasting Time 13 hrs 05-07-2020 [facility] (27076) GFR/1.73 sq M >60 mL/min/{1.73_m 05-07-2020 [facility] predicted among 2} (441 95) blacks MDRD (S/P/Bld) [Vol rate/Area] GFR/1.73 sq M >60 mL/min/{1.73_m 05-07-2020 [facility] predicted among 2} (441 95) non-blacks MDRD (S/P/Bld) [Vol rate/Area] Glucose [Mass/Vol] 134 74 - 99 mg/dL High 05-07-2020 [facility] mg/dL (15701) Potassium [Moles/Vol] 3.9 3.7 - 5.1 mmol/L 05-07-20 20 [facility] mmol/L (14030) Protein [Mass/Vol] 7.8 6.3 - 8.0 g/dL 05-07-2020 [facility] g/dL (12202) Sodium [Moles/Vol] 143 136 - 144 mmol/L 05-07-2020 [facility] mmol/L (46575) Triglyceride 111 <150 mg/dL mg/dL 05-07-2020 [facility] [Mass/Vol] (97675) Urea nitrogen 22 9 - 24 mg/dL mg/dL 05-07-2020 [facility] [Mass/Vol] (42622) progress on 2020-04 PROGRESS HNO ID: [id number] Normal 04-12-2020 [facility] Author: Natalya Bledsoe LPN [place] (83051) Service: ? Author Type: ? Type: Progress [...] be contacted after review by Andres mcgarry construction technician. Natalya chao on 2020-04-12 STEVE Telephone (FAMPWS) Normal 04-12-2020 [place] JOSE Bell ([id number]) 1955 [facility] Date Time Provider Department (45859) 04/12/20 MARKUS WOODS III FAMWS During your [...] be contacted after review by Andres mcgarry construction technician. Natalya Cyr, MSN WATER SUPERVISOR.CLINICAL DOCUMENT IMPROVEMENT EDUCATOR 04/12/2020 1:53 PM Signed BP is still not at target of 130/80 or lower. Recommend ad ding HCTZ 12.5 mg daily in the morning. Recheck BP with nurse visit or f 2f visit in 3-4 weeks, also to get BMP at that time to check electrolytes and renal function. Lab ordered. Heather Cyr, MSN WATER SUPERVISOR.DARBY Edwards LPN 04/12/2020 2:44 PM Signed Spoke [...] Heather. Ok to msg. Tigist Cyr, MSN WATER SUPERVISOR.CLINICAL DOCUMENT IMPROVEMENT EDUCATOR 04/12/2020 3:00 PM Signed BP still too [...] once daily. Authorizing Provider: HEATHER CYR MSN WATER SUPERVISOR.DARBY Cyr MSN WATER SUPERVISOR.DARBY 04/12/2020 3:00 PM Signed Addended by: HEATHER [...] [I10] Order(s):BASIC METABOLIC PNL [SQBMP] Order #: [id number] FUT URE amLODIPine (NORVASC) 2.5 mg tabletTake [...] HYDROCHLOROTHIAZIDE 12.5 MG TABLET >> ORTIZ Carranza WATER SUPERVISOR.DARBY 04/12/2020 2:53 PM took in past and [...] once daily. Encounter Status:Closed by HEATHER CYR CLINICAL DOCUMENT IMPROVEMENT EDUCATOR on 04/12/20 cnnurse on [facility] Nurse Visit (FAMPWS) Normal 0 [place] JOSE Bell ([id number]) 1955 [facility] Date Time Provider Department (70244) 04/12/20 1:00 PM [place] NURSE FAMPWS During your visit today, we [...] be contacted after review by Andres mcgarry construction technician. Natalya Bledsoe LPN Referring Provider: MARKUS WOODS III [[id number]] Allergies As of Date: 04/12/2020 (No Known [...] 04/12/20 progress on 2020-03 PROGRESS HNO ID: [id number] Normal 04-03-2020 [facility] Author: Markus Woods III [place] (63363) Service: ? Author Type: Physician Type: Progress [...] pa ssenger in her car driving to [place]. At one point he even reac hed [...] goi ng through the tunnels along the [facility]. Apparently he has had some anxiety in [...] 2020-04-03 CNOV Office Visit (FAMPWS) Normal 04-03-[address] [place] [address] JOSE Bell ([id number]) 1955 [facility] Date Time Provider Department (74172) 04/03/20 10:00 AM MARKUS WOODS III During [...] while passenger in her car driving to [place]. At one point he even reache d [...] when going through the tunnels along the [facility]. Apparently he has had so me anxiety [...] III MD Referring Provider: MARKUS WOODS III [[id number]] Allergies As of Date: 04/03/2020 (No Known [...] 04/03/20 progress on 2020-03 PROGRESS HNO ID: [id number] Normal 03-11-2020 [facility] Author: Natalya Bledsoe LPN [place] (69496) Service: ? Author Type: ? Type: Progress [...] on 2020-03-11 DARBYN Telephone (FAMPWS) Normal 03-11-2020 [place] [facility] JOSE CYR ([id number]) 1955 [facility] Date Time Provider Department (58362) 03/11/20 MARKUS WOODS III During your visit [...] PETTY POST CMA on 03/11/20 cnnsoto on [facility] Nurse Visit (FAMPWS) Normal 0 [place] [facility] JOSE CYR ([id number]) 1955 [facility] Date Time Provider Department (82962) 03/11/20 10:30 AM [place] [facility] your visit today, we [...] would be contacted after review by John STOEN. Natalya Bledsoe LPN Referring Provider: MARKUS WOODS III [[id number]] Allergies As of Date: 03/11/2020 (No Known [...] 03/11/20 progress on 2020-02 PROGRESS HNO ID: [id number] Normal 03-09-2020 [facility] Author: Mk (Structural Engineer Sprinkler Driver) [facility] (71072) Service: ? Author Type: Nurse Practitioner Type: [...] to the [facility] outpatient neurology [facility] with a chief complaint of Stroke and [...] w/ RVR by EKG. Patient presents to [facility] as transfer from [place] [facility] with stroke-like symptoms and possi ble [...] f finding a house to move to [place]. He reports prior to Sunday, he was f eeling 'fine', 'no issues'. 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 He reports that he cannot read or write. H e denies fever, chills, cough, SOB, n/v/d, abdominal pain, syncope. ? At [place], patient initial NIH of 5 for mild [...] continue to follow up with PCP and transverse abdominal muscle surgeon. Stroke Risk factors: Atrial Fibrillation Diabetes Hypertension [...] exercise at least 3 times per w elem Obesity - target ideal body weight and girth <35 for women, <40 for men Diabetes - Target <6.5-7% Smoking - Target smoking cessation Hyperlipidemia - Target total cholesterol < 200, Target LDL <100, < 70 for high risk, Target HDL >45 for men, >55 for women, Target tri glycerides <150 RTC as needed Mk Hanna APRN.CLINICAL DOCUMENT IMPROVEMENT EDUCATOR: [facility], Department of Neurology 40 minutes were spent with patient, > 50% of time was spent counseling and coordinating care. Topics discussed included differential di agnosis, diagnosis, treatment options, and residential disease manageme nt. CC: Referring Physician: MOSHE SORIANO PA-C [address] [place] [address] PCP: Markus Woods III MD [address] [place] [address] cnov on 2020-03-09 CNOV Office Visit ([facility]UR[facility]) Normal 03-09-20 [address] [place] JOSE Frias ([id number]) 1955 M Medical Date Time Provider Department Center 03/09/20 10:00 AM MK HANNA (WATER SUPERVISOR, CLINICAL DOCUMENT IMPROVEMENT EDUCATOR) [facility] (00536) During your visit today, we recorded the [...] w/ RVR by EKG. [facility] [facility] as transfer from [place] ED with stroke-like symptoms and possible acute [...] finding a house t o move to [place]. He reports prior to Sunday, he was feeling 'fine', 'no issues'. 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 He reports t hat he cannot read or write. He denies fever, chills, cough, SOB, n/v/d, abdominal pain, syncope. ? At [place], patient initial NIH of 5 for mild [...] states that he has followed up with [facility] transverse abdominal muscle surgeon but was holding off until this appointment [...] needed. Patient may continue to follow up [facility] PCP and transverse abdominal muscle surgeon. Stroke Risk factors: Atrial Fibrillation Diabetes Hypertension [...] exercise at least 3 times per w elem Obesity - target ideal body weight and girth <35 for women, <40 for men Diabetes - Target <6.5-7% Smoking - Target smoking cessation Hyperlipidemia - Target tota l cholesterol < 200, Target LDL <100, < 70 for high risk, Target HDL >45 for men, >55 for women, Target triglyce rides <150 RTC as needed Mk Hanna, WATER SUPERVISOR.CLINICAL DOCUMENT IMPROVEMENT EDUCATOR: [facility], Department of Neurology 40 minutes were spent with patient, > 50% of time was spent counseling and coordinating care. Topics di scussed included differential diagnosis, diagnosis, treatment options, and buttermaker disease management. CC: Referring Physician: MOSHE SORIANO PA-C [address] [place] [id number] PCP: Markus Woods III MD [facility] [place] [phone] Referring Provider: MOSHE SORIANO (NORMA) [[id number]] Allergies As of Date: 03/09/2020 (No Known [...] 03/09/20 progress on 2020-02 PROGRESS HNO ID: [id number] Normal 02-24-2020 [facility] Author: Emily Montes LPN [place] ([id number]) Service: ? Author Type: ? Type: Progress [...] on 2020-02-24 CNPN Telephone (FAMPWS) Normal 02-24-2020 [place] Andrei JOSE CYR ([id number]) 1955 [facility] Date Time Provider Department ([id number]) 02/24/20 MARKUS WOODS III During your visit [...] Woods III, MD, FAAFP Petty Post CMA, [place] 02/25/2020 10:47 AM Signed Patients , Lorena, [...] PETTY POST CMA on 02/25/20 cnnsoto on [facility] Nurse Visit (FAMPWS) Normal 0 [place] JOSE Bell ([id number]) 1955 M [place] Date Time Provider Department ([id number]) 02/24/20 2:00 PM [place] NURSE FAMPWS During your visit today, we [...] 161/111 99 Referring Provider: MARKUS WOODS III [[id number]] Allergies As of Date: 02/24/2020 (No Known [...] Diabetes (HCC) [E11.9] 01/29/2020 Encounter Status:Closed by EMLIY MONTES LPN on 02/24/20 cnpn on 2020-02-18 DARBYN Telephone (FAMPWS) Normal 02-18-2020 [place] JOSE Bell ([id number]) 1955 [facility] Date Time Provider Department ([id number]) 02/18/20 MARKUS WOODS III During your visit today, we recorded the following informati on about you: Markus Woods III MD 02/18/2020 1:46 PM Signed Staff please schedule patient for appt juan antonio Lopes in [place] if possible Markus Woods III MD December [facility]02/20/2020 1:14 PM Signed Spoke with she stated patient is not interested. Tigist Edwards LPN 02/20/2020 1:47 PM Signed Please see below, LAURA. Tigist Woods III MD 02/20/2020 5:41 PM Signed noted Markus Woods III MD Allergies As of Date: 02/18/2020 (No Known Allergies) Date Reviewed: 02/06/2020 Reviewed by: Petty ([facility]) VI Post - Fully Assessed Reason for Visit: Sleep Problem [100] Primary Visit Diagnosis:BHAKTI (obstructive sleep apnea) [G47.3 3] Order(s):CONSULT TO SLEEP MEDICINE - TORIBIO LT [8310505] Order #: [id number]: 1 FUTURE Prescriptions as of 02/18/2020 Sig: [...] on 2020-02-11 CNCO Letter Text Normal 02-11-2020 [facility] ([id number]) progress on 2020-01 PROGRESS HNO ID: [id number] Normal 02-06-2020 [facility] Author: Markus Woods III [place] ([id number]) Service: ? Author Type: Physician Type: Progress [...] though getting better. To see neurologist in [place] next mo. 2. hypertension- 3. atrial fib--had echo and to f/u with transverse abdominal muscle surgeon 4. diabetes mellitus--new dx HbA1C 7.3 on [...] check in 2 wks follow up with transverse abdominal muscle surgeon and other specialists as appoint ed. return to office 3 mos with labs NADINE Dallas MD on 2020-02-06 CNOV Office Visit (FAMPWS) Normal 02-05- 20 [place] Andrei JOSE CYR ([id number]) 1955 M [place] Date Time Provider Department ([id number]) 02/06/20 10:00 AM MARKUS WOODS III During [...] getting be tter. To see neurologist in [place] next mo. 2. hypertension- 3. atrial fib--had echo and to f/u with transverse abdominal muscle surgeon 4. diabetes mellitus--new dx HbA1C 7.3 on [...] check in 2 wks follow up with transverse abdominal muscle surgeon and other specialists as appoint ed. return to office 3 mos with labs NADINE Dallas MD, III MD 02/06/2020 11:13 AM Signed PLAN: healthy weight losing diet and regular exercise eat less sugar, bread, potato, pasta, rice, corn, corn syrup, saturated fats increase lisinopril 10 mg daily--nurse bp check in 2 wks follow up with transverse abdominal muscle surgeon and other specialists as appoint ed. return to office 3 mos with labs Markus Woods III MD Referring Provider: MARKUS WOODS III [[id number]] Allergies As of Date: 02/06/2020 (No Known Allergies) Date Reviewed: 02/06/2020 Reviewed by: Petty ([facility]) VI Post - Fully Assessed Reason for Visit: Hospital Follow Up [177] Cmt: stroke Primary Visit Diagnosis:Hospital discharge follow-up [Z09] Other Visit Diagnoses:Acute ischemic stroke (HCC) [I63.9] Atrial fibrillation, unspecified type (HCC) [I48.91] Hypertension, unspecified type [I10] Type 2 diabetes mellitus without complication, without long-term current use of insulin (HCC) [E11.9] Hyperlipidemia LDL goal <100 [E78.5] Order(s):COMP METABOLIC PANEL [SQCMP] Order #: [id number] FU CHAD HGB A1C [LJOUZ0J] Order #: [id number] FUTURE LIPID PANEL BASIC [SQLIPB] Order #: [id number] FUTURE lisinopril (ZESTRIL, PRINIVIL) 10 mg tabletTake [...] check in 2 wks follow up with transverse abdominal muscle surgeon and other specialists as appoint ed. return [...] 02/06/20 progress on 2020-01 PROGRESS HNO ID: [id number] Normal 02-03-2020 [facility] Author: Ninoska (Network Navigator) Bakari Gale ([id number]) Service: ? Author Type: Spinner Hydraulic Type: Progress Notes Filed: 02/03/2020 9:07 AM Note Text: TRANSITIONAL CARE MANAGEMENT (TCM) COMMUNITY MONITORING PROG GALDINO Provider Action/FYI: SUMMARY: [facility] Admitted for: Acute Ischemic Stroke Contact made with patient: Yes Hi my name is PETE Lynn and I am calling from the [facility] on behalf of your PCP, Markus Woods [...] like to speak with a social work sales team manager to help give you support for any [...] I will send your request to a planner scheduler who will contact and assist you with [...] required, patient already has an appointment sched [facility]. MOTOR VEHICLE COMPLIANCE ANALYST: Patient MyChart status is: Declined Thank you [...] lei l be sent to you via [employer] once a week for the next few weeks. [employer] is the best way for us to [...] questionnaire will come to you through your [employer] account and will replace the need for us to call you each week. May I sign yo u up for this? No, reason: I don't like using [employer] ACTION TAKEN: No action - patient declines Spring Inspector. Enter next [facility] ent outreach date for the following [...] possible). progress on 2020-01 PROGRESS HNO ID: [id number] Normal 01-30-2020 [facility] Author: Ninoska (Network Navigator) Bakari Gale ([id number]) Service: ? Author Type: Spinner Hydraulic Type: Progress Notes Filed: 02/03/2020 9:07 AM Note Text: TRANSITIONAL CARE MANAGEMENT (TCM) COMMUNITY MONITORING PROG GALDINO Provider Action/FYI: SUMMARY: [facility]. Admitted for: Acute ischemic stroke Contact made with patient: No - scheduled next outreach for next business day in the Track Pt Outreach section, February 03, 2020 Outreach ended cnptoutreach on CNPTOUTREACH Patient Outreach ([facility]) Normal 0 01-30-2020 [place] JOSE Bell ([id number]) 1955 [facility] Date Time Provider Department ([id number]) 01/30/20 NINOSKA VILLEGAS (NETWORK NAVIGATOR)[facility] During your visit today, we recorded the following informati on about you: PETE Lynn NAVIGATOR 02/03/2020 9:07 AM Rose thomson TRANSITIONAL CARE MANAGEMENT (TCM) COMMUNITY MONITORING PROG GALDINO Provider Action/FYI: SUMMARY: [facility]. Admitted for: Acute ischemic stroke Contact made with patient: No - scheduled next o utrea for next business day in the Track Pt Outreach section, February 03, 2020 Outreach ended Ninoska PETE VillegasATOR 02/03/2020 9:07 AM Rose thomson TRANSITIONAL CARE MANAGEMENT (TCM) COMMUNITY MONITORING PROG GALDINO Provider Action/FYI: SUMMARY: [facility]. Admitted for: Acute Ischemic Stroke Contact made with patient: Yes Hi my name is Ninoska PETE Villegas and I am calling from the [facility] on behalf of your PCP, Markus Woods [...] like to speak with a social work sales team manager to help give you support for any [...] I will send your request to a planner scheduler who will contact and assist you with [...] patient already has an appointment sched ed. MOTOR VEHICLE COMPLIANCE ANALYST: Patient MyChart status is: Declined Thank you [...] at will be sent to you via [employer] once a week for the next few weeks. [employer] is the best way for us to [...] questionnaire will come to you through your [employer] account and will replace the need for us to call you each week. May I sign you up for this? No, reason: I don't like using [employer] ACTION TAKEN: No action - patient declines Spring Inspector. Ent er next patient outreach date for [...] Assessed Reason for Visit: Transition Of Care [0193] Cmt: D/C [facility] on January 29, 2020 Prescriptions as [...] Diabetes (HCC) [E11.9] 01/29/2020 Encounter Status:Closed by [facility] NETWORK NAVIGATOR, DENY MADERA on 02/03/20 therapy nt on 01-28 THERAPY NT HNO ID: [id number] Normal 01-29-2020 [facility] Guevara Author: Nona (Pt) [facility] Service: Physical Therapy ([id number]) Author Type: Physical Therapist Type: Therapy (PT/OT/Speech/Resp) Filed: 01/29/2020 9:15 AM Note Text: Physical Therapy Evaluation SERVICE DATE: 01/29/2020 SERVICE TIME: 849 to 905 ROOM: [place] [address] Recommended Discharge Disposition: Home PT Recommendations to [...] and mobility-other Interventions Provided: Evaluation $ Evaluation-Low ([id number]) Billed Units: 1 unit History and examination [...] 12 Please see discipline specific clinical documentation [facility] for complete details for this therapy evaluation/treatment. SIGNATURE: Nona Godoy PT PATIENT NAME: Jose Cyr DATE: January 29, 2020 TIME: 9:10 AM THERAPY NT HNO ID: [id number] Normal 01-29-2020 [facility] Author: Yas (Otr/L) [facility] Service: Occupational Therapy ([id number]) Author Type: Occupational Therapist Type: Therapy (PT/OT/Speech/Resp) Filed: 01/29/2020 9:52 AM Note Text: Occupational Therapy Evaluation SERVICE DATE: 01/29/2020 SERVICE TIME: 08 to 0848 ROOM: [place] [address] Recommended Discharge Disposition: Outpatient Occupational T herapy [...] Awareness;Lack of coordination-other Interventions Provided: Evaluation;Therapeutic Exercise (311 10) $ Evaluation-Moderate (34148) Billed Units: 1 unit OT Evaluation Moderate [...] obesity, TBI, R eye blindness Therapeutic Exercise (03016) Treatment Minutes: 16 1 unit Skilled Intervention(s): Facilitated fine motor control exs in room against gravity and edu on functional use like writing, turn ing pages of a paper, etc. Provided pen cut off saw operator pipe blanks to have pt hold pen easier. Pt attempts to complete minicog but unable to complete due to not being abl e to hold pen in his hand/poor motor control. Pt can write name with effor t, much improved with pencil cut off saw operator pipe blanks. Provided theraputty and had pt pr actice exs for right upper extremity coordination and manipulation. Provide d handouts with pictures to increase pt understanding and adherence. Total Timed Code Treatment Minutes: 16 Total Treatment Time (minutes): 37 SUBJECTIVE: Current Hospital Course: Chart reviewed; Patient is a 64 year old male presents to [facility] NSICU as del rosario sfer from [place] ED with stroke-like symptoms and possible acute [...] Assistance Functional Mobility Comments: to bathroom and back tender fourdrinier Dominance: Right Range of Motion: WFL Strength: WFL Coordination Deficits: In hand manipulation;Finger oppositio n;Finger to nose Finger to Nose Impairment: Right Finger Opposition Impairment: Right Hand Manipulation Impairment: Right Edu pt on fall prevention / up with assistance. Pt left in r oom in chair with calllight within reach. Please see discipline specific clinical documentation [facility] for complete details for this therapy evaluation/treatment. SIGNATURE: JUJU Marquez/Sheri PATIENT NAME: Jose Cyr DATE: January 29, 2020 TIME: 9:01 AM progress on 2020-01 PROGRESS HNO ID: [id number] Normal 01-29-2020 [facility] Author: Neida Fernandez MD General Service: Hospital Medicine Medical Author Type: Resident Center Type: Progress Notes ([id number]) Filed: 01/29/2020 11:38 AM Note Text: Attestation signed by Hector Gallegos at 01/29/2020 3:32 PM Attending Note I personally saw and examined the patient on 01/29/20. I rev iewed the resident's note. I agree with the resident's assessment and plan unless otherwise noted. Signature: Hector Gallegos, DO Date: 01/29/2020 Time: 3:32 PM Pager: [phone] SERVICE DATE: 01/29/2020 SERVICE TIME: 11:37 AM House Medicine Service Progress Note From 6 AM to 5 PM: You may reach the House Medicine trestle mainternance laborer c urrently assigned to this patient by finding their pager number on [facility] treatment team (they will be assigned as the trestle mainternance laborer or resident). It i s the last four digits in the phone number beginning with ([phone] ). We encourage the use of [employer] Secure Chat. Otherwise, please contact the House Med trestle mainternance laborer at #[phone] for any concerns. Patient: Jose Cyr Date [...] 01/24 Who was transferred to us from [place] ED due to stroke like symptoms described [...] mg chewable tab(s) 81 mg ORAL/FEEDING TUBE BLIL Y Geovanna (Res) Ojiaku, DO 81 mg [...] 2.85 thou/cmm 3.22 (H) 2.97 (H) Abs. Sevier 0.30 - 0.82 thou/cmm 0.54 0.71 Abs. [...] Assessment: -New onset atrial fibrillation, rate controlled -Txl9mg3-Sshq risk score is 3 -Echocardiogram showed evidence [...] -- 01/28/20 0600 activity - mobilize patient ([place], [place]) 01/27/20 0245 pneumatic compression stockings ([place]) VTE Prophylaxis: VTE prophylaxis appropriate Plan of care discussed with: Provider, RN, Patient SIGNATURE: Neida Fernandez MD PATIENT NAME: Jose Cyr DATE: January 29, 2020 TIME: 11:37 AM PAGER/CONTACT #: [phone] PROGRESS HNO ID: [id number] Normal 01-29-2020 [place] Author: Rayna Bojorquez) NORMA Atkinson General Service: Neurosurgery Medical Author Type: Physician Jewelry Finisher Center Type: Progress Notes ([id number]) Filed: 01/29/2020 8:43 AM Note Text: Neurosurgery [...] 0659 01/29/20 07 - 01/30/20 0659 Shift [id number] 4861-2728 0027-5662 24 Hour Total [id number] 6017-1611 0820-4437 24 Hour Total INTAKE PO 720 720 [...] HFrEF (heart failure with reduced ejection fraction) ([facility]) 01/28/2020 - Cytotoxic brain edema ([facility]) 01/28/2020 - Brain compression ([facility]) 01/28/2020 - BHAKTI (obstructive sleep apnea) 01/27/2020 - HTN (hypertension) 01/27/2020 - Atrial fibrillation ([facility]) 01/27/2020 - Acute ischemic stroke ([facility]) 01/27/2020 64 year old male thrombotic [...] January 29, 2020 TIME: 8:37 AM Pager: [phone] plan of care on PLAN OF CARE HNO ID: [id number] Normal 01-29-20 20 [facility] Author: Veronica Cyr (Pharmacist) [facility] Center Service: Pharmacy (0 0000) Author Type: Pharmacist Type: Plan of Care Filed: 01/29/2020 1:09 PM Note Text: Reasons for Delay Delivery Processes Identified: Prior Authorization/Insurance Metoprolol tartrate needs prior auth. Called the floor and t he nurse asked us to send the prior auth information. I did call the [facility] pharmacy and the patient picked up the metoprolol succinate on 020 [facility] BEDSIDE DELIVERY SURVEY 1. Patient to use [facility] Bedside Delivery - YES Insurance Information as follows: 2. Insurance card on file - YES 3. Credit card for payment - N/A Patient has 2 prescriptions: Metoprolol Tartrate 25mg Lisinopril 5mg Total: $0 Please call Linda [phone] or Kelly [phone] upon discharge. Pharmacy Discharge Medication Service: This patient has elected to receive their discharge prescrip tions through the [facility] Pharmacy Bedside Prescription Delivery program. The prescriptions are currently being processed. A follow-up not e will be entered once the prescriptions have been filled and delivere d to the patient. Please contact me with any questions or updates to the patient's discharge medications. Kelly Lopez (Surveying Technician) DCT Contact Info: [phone] phosphorous blood o n 2020-01-29 Phosphate [Mass/Vol] 3.2 2.7-4.8 mg/dL Normal 0 [facility] (21355) Comment: Performed By: #### MAG #### [facility] [address] [place] [address] nursing prog on NURSING HNO ID: [id number] Normal 01-29-2020 [place] PRO Author: Ozzie (Rn) BENITEZ Perez General Service: ? Medical Author Type: Registered Nurse Center Type: Nursing Progress Note ([id number]) Filed: 01/29/2020 1:14 PM Note Text: Nursing Progress Note Patient Name: Jose Cyr Patient Location: [id number] Daily Note:Reviewed discharge instructions with pt. Pt state s understanding of instructions. This note was completed by: Ozzie Perez, BENITEZ mdrd gfr on 2020-01 GFR/1.73 sq M >60 >60mL/min/1.73m2 mL/min/{1.73_m2} Normal [facility] non-blacks MDRD (000 00) (S/P/Bld) [Vol rate/Area] Comment: Result Comment: If the patie nt is , multiply the result by 1.210. Performed By: #### GFR #### [place] [address] magnesium blood on 2020-01-29 Magnesium [Mass/Vol] 2.0 1.7-2.3 mg/dL Normal 0 [facility] (11694) Comment: Performed By: #### MAG #### [place] [id number] hemogram/diff on 27-01-21 Abs Immature Grans 0.03 0.00-0.05 thou/cmm Normal 01-29-2020 [facility] (00 000) Comment: Performed By: #### TROPT ### # [place] [address] Abs Neut (ANC) 6.00 1.78-5.38 thou/cmm High 01-29-2020 [facility] (70854) Comment: Performed By: #### TROPT ### # [place] [address] Abs. Baso 0.05 0.01-0.08 thou/cmm Normal 01-29-2020 [facility] (01946) Comment: Performed By: #### TROPT ### # [facility] [address] [place], [place] [address] Abs. Sevier 0.71 0.30-0.82 thou/cmm Normal - [facility] (59342) Comment: Performed By: #### TROPT ### # [facility] [address] [place] [id number] Basophils/100 WBC (Bld) 0.5 % Normal 2019 [facility] (63877) Comment: Performed By: #### TROPT ### # [facility] [address] [place] [address] Eosinophils (Bld) 0.21 0.04-0.54 thou/cmm Normal 01-29-2020 [facility] [#/Vol] [facility] Sys tem (57364) Comment: Performed By: #### TROPT ### # [place] [address] Eosinophils/100 WBC (Bld) 2.1 % Normal - [facility] (80001) Comment: Performed By: #### TROPT ### # [place] [address] Erythrocyte distribution 13.4 11.6-14.4 % Normal 01-28 [facility] width (RBC) [Ratio] System (27281) Comment: Performed By: #### TROPT ### # [place] [address] Hematocrit (Bld) [Volume 41.5 40.1-51.0 % Normal 01-28 [facility] fraction] System (00 000) Comment: Performed By: #### TROPT ### # [facility] [address] [place] [id number] Hemoglobin (Bld) [Mass/Vol] 13.0 13.7-17.5 g/dL Low [facility] (00 000) Comment: Performed By: #### TROPT ### # [place] [address] Immature Grans 0.30 % Normal 01-29-2020 [facility] (24164) Comment: Performed By: #### TROPT ### # [facility] [address] [place], [place] [address] Lymphocytes (Bld) [#/Vol] 2.97 0.84-2.85 thou/cmm High - [facility] (00 000) Comment: Performed By: #### TROPT ### # [facility] [address] [place], [place] [address] Lymphocytes/100 WBC (Bld) 29.8 % Normal 01-09 [facility] (99546) Comment: Performed By: #### TROPT ### # [facility] [address] [place], [place] [address] MCH (RBC) [Entitic mass] 27.1 25.7-32.2 pg Normal 01-28 [facility] (00 000) Comment: Performed By: #### TROPT ### # [facility] [address] [place], [place] [address] MCHC (RBC) [Mass/Vol] 31.3 32.3-36.5 % Low 01-29-20 20 [facility] (85441) Comment: Performed By: #### TROPT ### # [facility] [address] [place], [place] [address] MCV (RBC) [Entitic vol] 86.6 83.2-95.6 fl Normal 2019 [facility] (00 000) Comment: Performed By: #### TROPT ### # [facility] [address] [place], [place] [address] Monocytes/100 WBC (Bld) 7.1 % Normal 2019 [facility] (59451) Comment: Performed By: #### TROPT ### # [facility] [address] [place], [place] [address] Platelet mean volume (Bld) 10.7 8.7-12.0 fl Normal [facility] [Entitic vol] System (15885) Comment: Performed By: #### TROPT ### # [facility] [address] [place], [place] [address] Platelets (Bld) [#/Vol] 271 141-365 thou/cmm Normal 2019 [facility] (00 000) Comment: Performed By: #### TROPT ### # [facility] [address] [place], [place] [address] RBC (Bld) [#/Vol] 4.79 4.63-6.08 mil/cmm Normal 01-29-2020 [facility] (00 000) Comment: Performed By: #### TROPT ### # [facility] [address] [place], [place] [address] RDW SD 42.0 36.1-45.8 fl Normal 01-29-2020 [facility] (05628) Comment: Performed By: #### TROPT ### # [facility] [address] [place], [place] [address] Seg Neutrophil 60.2 % Normal 01-29-2020 [facility] (02874) Comment: Performed By: #### TROPT ### # [facility] [address] [place], [place] [address] WBC (Bld) [#/Vol] 9.97 4.23-9.07 thou/cmm High 01-29-2020 [facility] (02514) Comment: Performed By: #### TROPT ### # [place] [address] consult prog on CONSULT PROG HNO ID: [id number] Normal 01-29-20 20 [facility] Author: Moshe Bojorquez) [facility] Service: Neurology ICU (42382) Author Type: Physician Jewelry Finisher Type: Consult Progress Note Filed: 01/29/2020 11:58 [...] case managem on CASE MANAGEM HNO ID: [id number] Normal 01-29-20 [facility] Author: Carrero (Sw) [facility] Service: Care Management (18342) Author Type: Clinical Technician Type: Care Mgt Progress Note Filed: 01/29/2020 [...] CONTACT RESOURCES: Pt form home with spouse lpta. OT recommending outpatient the rapy. Pt agreeable to states his spouse can help with transportation. Spouse to provide discharge transportation. SIGNATURE: BRENNAN Marcus PATIENT NAME: Jose Cyr DATE: January 29, 2020 TIME: 1:02 PM PAGER/CONTACT #: [phone] basic metabolic panel on 2020-01-29 Anion gap [Moles/Vol] 12 9-18 mmol/L Normal 01-29-20 20 [facility] (68416) Comment: Performed By: #### MAG #### [facility] [address] [place], [place] [address] Calcium [Mass/Vol] 8.5 8.5-10.2 mg/dL Normal 01-29-2020 [facility] (55242) Comment: Performed By: #### MAG #### [facility] [address] [place], [place] [address] Chloride [Moles/Vol] 103 97-105 mmol/L Normal 0 [facility] (82442) Comment: Performed By: #### MAG #### [facility] [address], [place] [address] CO2 Blood 25 22-30 mmol/L Normal 01-29-2020 [facility] (90256) Comment: Performed By: #### MAG #### [facility] [address], [place] [address] Creatinine [Mass/Vol] 1.01 0.73-1.22 mg/dL Normal 01-29-20 20 [facility] (00 000) Comment: Performed By: #### MAG #### [facility] [address], [place] [address] Glucose [Mass/Vol] 122 74-99 mg/dL High 01-29-2020 [facility] (66243) Comment: Result Comment: The [place] Diabetes Association (ADA) provides guidance for cutoff [...] Standards of Medical Care in Diabetes 2016; [place] [employer] Association. Diabetes Care. 2016;39(Suppl 1). Performed By: #### MAG #### [facility] [address], [place] [address] Potassium [Moles/Vol] 3.6 3.7-5.1 mmol/L Low 01-29-20 [facility] (55459) Comment: Performed By: #### MAG #### [facility] [address], [place] [address] Sodium [Moles/Vol] 140 136-144 mmol/L Normal 01-29-2020 [facility] (00413) Comment: Performed By: #### MAG #### [facility] [address], [place] [address] Urea nitrogen [Mass/Vol] 21 9-24 mg/dL Normal 01-28 [facility] (22901) Comment: Performed By: #### MAG #### [facility] [address], [place] [address] therapy nt on 01-27 THERAPY NT HNO ID: [id number] Normal 01-28-2020 [facility] Author: Lara ([facility]-Tablet Tester) Angelito [facility]/TRANSVERSE ABDOMINAL MUSCLE SURGEON Medical Center Service: Speech/Swallow (43705) Author Type: Speech Language Pathologist Type: Therapy (PT/OT/Speech/Resp) Filed: 01/28/2020 1:41 PM Note Text: Speech Therapy Speech Evaluation SERVICE DATE: 01/28/2020 SERVICE TIME: 1108 to 1126 ROOM: [id number] Nursing Recommendations: Reinforce use of cognitive strategi [...] results below Problem solving: Impaired Memory: Impaired [place] Aphasia Screening Test - note that Patient's [facility] mauro education is 8th grade with poor [...] 3/3 Months Reversed 0/3 30 Seconds 2/3 Djtj-Rffk-Uyqa 0/3 Go/No-Go 2/3 Address Recall 0 Total [...] inf arction Interventions Provided: Speech Language Eval (32242) $ Speech Language Eval (70869) Billed Units: 1 unit Total Treatment Time [...] w/ RVR by EKG. Patient presents to [facility] as transfer from [place] ED with stroke-like symptoms and possible acute [...] of finding a house to move to [place]. He reports prior to Sunday, he was feeling 'f ine', 'no issues'. 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 He reports that he cannot read or write. H e denies fever, chills, cough, SOB, n/v/d, abdominal pain, syncope. At [place], patient initial NIH of 5 for mild [...] 0 Please see discipline specific clinical documentation [facility] for complete details for this therapy evaluation/treatment. SIGNATURE: Lara Eaton CCC-TRANSVERSE ABDOMINAL MUSCLE SURGEON PATIENT NAME: Jose Cyr DATE: January 28, 2020 TIME: 11:33 AM progress on 2020-01 PROGRESS HNO ID: [id number] Normal 01-28-2020 [place] Author: Pedro Pablo Davenport General Service: Neurology ICU Medical Author Type: Physician Center Type: Progress Notes ([id number]) Filed: 01/28/2020 4:53 PM Note Text: SERVICE [...] temperature COORDINATION: Finger-to- nose-finger intact bilaterally and Vdkl-pi-bzmt intact bilaterally Diagnostic tests reviewed for today's [...] Is Patient Clinically Ready to Transfer to [facility] or SDU?: No Discharge Planning: To [...] Class III, BMI >= 40 (morbid obesity) ([facility]) E66.01 05/28/2017 - Present Current Assessment AND Plan PLAN: - Discussed diet and exercise modifications * (Principal) Acute ischemic stroke ([facility]) 01/27/2020 - Presen t Current Assessment [...] - PRN antihypertensives Atrial fibrillation with RVR ([facility]) 01/27/2020 - Present Current Assessment AND Plan Assessment: Currently rate controlled PLAN: - PO Lopressor 25mg BID - Can resume anticoagulation in 3 weeks. HFrEF (heart failure with reduced ejection fraction) ([facility]) - Present Current Assessment AND Plan [...] -- 01/28/20 0600 activity - mobilize patient ([place], [place]) 01/27/20 0245 pneumatic compression stockings ([place], [place]) VTE Prophylaxis: VTE prophylaxis appropriate Plan of care discussed with: Provider, RN, Patient SIGNATURE: Geovanna Clarke DO PATIENT NAME: Jose Cyr DATE: January 28, 2020 TIME: 12:16 PM PAGER/CONTACT #: [phone] THE NEURO ICU MANAGEMENT OF THIS PATIENT [...] Transfer to floor Please see the documented qkhpqq-lp-hublxp plan in the [facility] ed problem list. Plan of care discussed with: Provider, RN, Patient. Pedro Pablo Davenport DO Staff, Neurointensive Care [facility] [place] Date of Service: 01/28/2020 Time of Service: 4:52 PM This is an electronically created document. If printed, please do not remove from the chart or modify pr inted copy. > 35 min spent at bedside counseling family and discussing p jennifer with consultants as well as bedside management of the patient. PROGRESS HNO ID: [id number] Normal 01-28-2020 [place] Author: Lila Cantor General Service: Neurosurgery Medical Author Type: Nurse Practitioner Center Type: Progress Notes ([id number]) Filed: 01/28/2020 5:16 PM Note Text: Neurosurgery [...] - 01/28/20 0601/28/20699 - 01/29/20 0659 Shift [id number] 8313-1835 9042-5159 24 Hour Total 9804-9772 4983-1440 9228-0746 24 Hour Total INTAKE PO 120 240 [...] Class III, BMI >= 40 (morbid obesity) ([facility]) E66.0 1 05/28/2017 64 yo male [...] no el iquis ? SIGNATURE: Lila Cantor APRN.CLINICAL DOCUMENT IMPROVEMENT EDUCATOR PATIENT NAME: Jose burciaga DATE: January 28, 2020 TIME: 10:37 AM PROGRESS HNO ID: [id number] Normal 01-28-2020 [place] Author: Arjun Garcia General Service: Cardiovascular Medicine Medical Author Type: Physician Center Type: Progress Notes ([id number]) Filed: 01/28/2020 10:49 AM Note Text: CCU - PROGRESS NOTE SERVICE DATE: January 28, 2020 Admission Date: 01/27/2020 AGE: [age] year old LOS: 1 days Subjective 64yo M h/o obesity, HTN, newly-diagnosed Afib (01/24), BHAKTI i s presenting after a presentation to [facility] concerning for an a cute stroke. [...] he had not been following with a transverse abdominal muscle surgeon jose r to this presentation. 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 ABG: Invalid input(s): T1VCKISY Assessment/Plan IMPRESSION: Critical Care Documentation: The patient [...] Phosphate [Mass/Vol] 3.2 2.7-4.8 mg/dL Normal 0 [facility] (07037) Comment: Performed By: #### TROPT ### # [place] [address] nursing prog on NURSING PROG HNO ID: [id number] Normal 01-28-20 20 [facility] Author: Danielle DrakeRn) BENITEZ Briones [place] ([id number]) Service: Nursing Author Type: Registered Nurse Type: [...] a gown. Patient transferred via wheelchair to [facility]- belongings taken with patient. IV intact. RN offered to answer any additional questions fro m patient upon transfer- none at this time. mike hilario NURSING PROG HNO ID: [id number] [place] 01-28-20 [facility] Author: Mary DrakeRnTeja Hill RN [place] ([id number]) Service: Nursing Author Type: Registered Nurse Type: Nursing Progress Note Filed: 01/28/2020 4:14 PM Note Text: Nursing Progress Note Patient Name: Jose Cyr Patient Location: [id number]- Daily Note: 1604 Received report from Danielle in [facility]. This note was completed by: Mary Hill RN NURSING PROG HNO ID: [id number] [place] 01-28-20 [facility] Author: Danielle Briones RN [place] ([id number]) Service: Nursing Author Type: Registered Nurse Type: Nursing Progress Note Filed: 01/28/2020 3:59 PM Note Text: [facility] RN attempted to call report to 8100 RN- 8100 RN unable to take report at this time. mike hilario magnesium blood on 2020-01-28 Magnesium [Mass/Vol] 2.4 1.7-2.3 mg/dL High 0 [facility] (94895) Comment: Performed By: #### TROPT ### # [facility] [address] [place] [address] history physical on 2020-01-28 HISTORY HNO ID: [id number] Normal 01-28-2020 [place] PHYSICAL Author: Mayur Li MD General Service: Hospital Medicine Medical Author Type: Resident Center Type: HANDP ([id number]) Filed: 01/28/2020 1:06 PM Note Text: Attestation signed by Hector Gallegos at 01/29/2020 3:32 PM Attending Note I personally saw and examined the patient on 01/29/20. I rev iewed the resident's note. I agree with the resident's assessment and plan unless otherwise noted. Signature: Hector Gallegos, Date: 01/29/2020 Time: 3:32 PM Pager: [phone] SERVICE DATE: 01/28/2020 SERVICE TIME: 1:05 PM [facility] [place] SERVICE DATE: 01/28/2020 SERVICE TIME: 12:38 PM PRIMARY CARE PHYSICIAN: Markus Woods III MD Subjective CHIEF COMPLAINT: Stroke like symptoms HPI: Mr Cyr is a 64 years old male patient with past medical hi story of obesity, obstructive sleep apnea, hypertension, atrial fibri llation was transferred from most the ED to [facility] complaining of stroke like symptoms. CT brain [...] - 2.85 thou/cmm 2.41 3.22 (H) Abs. Sevier 0.30 - 0.82 thou/cmm 0.59 0.54 Abs. [...] daily -On hydralazine as needed Atrial fibrillation ([facility]) 01/27/2020 - Present Current Assessment AND Plan -New onset atrial fibrillation -[id number]-Zqar risk score is 3 -Echocardiogram showed evidence of ejection fraction of 45% -Cardiology is following, hold off anticoagulation for now -Metoprolol 25 mg twice daily -On Telemetry HFrEF (heart failure with reduced ejection fraction) ([facility]) - Present Current Assessment AND Plan -Echocardiogram showed evidence of new onset heart failure, ejection fraction is 45% -Cardiology is following, on metoprolol 25 mg twice daily an d lisinopril 5 mg daily [place]-lifestyle modification -Keep potassium > 4, magnesium > [...] -- 01/28/20 0600 activity - mobilize patient ([place], [place]) 01/27/20 0245 pneumatic compression stockings ([place], [place]) VTE Prophylaxis: VTE prophylaxis appropriate SIGNATURE: Mayur Li MD PATIENT NAME: Jose Cyr DATE: January 28, 2020 TIME: 1:05 PM PAGER/CONTACT #: [phone] hemogram/diff on 28-01-20 Abs Immature Grans 0.01 0.00-0.05 thou/cmm Normal 01-28-2020 [facility] (00 000) Comment: Performed By: #### TROPT ### # [facility] [address] [place] [address] Abs Neut (ANC) 4.50 1.78-5.38 thou/cmm Normal 01-28-2020 [facility] (16062) Comment: Performed By: #### TROPT ### # [address] [address] Abs. Baso 0.06 0.01-0.08 thou/cmm Normal 01-28-2020 [facility] (43118) Comment: Performed By: #### TROPT ### # [facility] [address], [place] [address] Abs. Sevier 0.54 0.30-0.82 thou/cmm Normal 01-28-2020 [facility] (37638) Comment: Performed By: #### TROPT ### # [facility] [address], [place] [address] Basophils/100 WBC (Bld) 0.7 % Normal 2019 [facility] (16437) Comment: Performed By: #### TROPT ### # [facility] [address], [place] [address] Eosinophils (Bld) 0.26 0.04-0.54 thou/cmm Normal 01-28-2020 [facility]Vol[facility] (12525) Comment: Performed By: #### TROPT ### # [facility] [address], [place] [address] Eosinophils/100 WBC (Bld) 3.0 % Normal 01-09 [facility] (90698) Comment: Performed By: #### TROPT ### # [facility] [address], [place] [address] Erythrocyte distribution 13.5 11.6-14.4 % Normal 01-27 [facility] width (RBC) [Ratio] System (08012) Comment: Performed By: #### TROPT ### # [facility] [address], [place] [address] Hematocrit (Bld) [Volume 41.8 40.1-51.0 % Normal 01-27 [facility]] System (00 000) Comment: Performed By: #### TROPT ### # [facility] [address], [place] [address] Hemoglobin (Bld) [Mass/Vol] 13.4 13.7-17.5 g/dL Low [facility] (00 000) Comment: Performed By: #### TROPT ### # [facility] [address], [place] [address] Immature Grans 0.10 % Normal 01-28-2020 [facility] (23503) Comment: Performed By: #### TROPT ### # [facility] [address], [place] [address] Lymphocytes (Bld) [#/Vol] 3.22 0.84-2.85 thou/cmm High 01-09 [facility] (00 000) Comment: Performed By: #### TROPT ### # [facility] [address], [place] [address] Lymphocytes/100 WBC (Bld) 37.5 % Normal 01-09 [facility] (42794) Comment: Performed By: #### TROPT ### # [facility] [address], [place] [address] MCH (RBC) [Entitic mass] 27.5 25.7-32.2 pg Normal 01-27 [facility] (00 000) Comment: Performed By: #### TROPT ### # [facility] [address], [place] [address] MCHC (RBC) [Mass/Vol] 32.1 32.3-36.5 % Low 01-28-20 20 [facility] (69154) Comment: Performed By: #### TROPT ### # [facility] [address], [place] [address] MCV (RBC) [Entitic vol] 85.8 83.2-95.6 fl Normal 2019 [facility] (00 000) Comment: Performed By: #### TROPT ### # [facility] [address], [place] [address] Monocytes/100 WBC (Bld) 6.3 % Normal 2019 [facility] (16073) Comment: Performed By: #### TROPT ### # [facility] [address], [place] [address] Platelet mean volume (Bld) 10.6 8.7-12.0 fl Normal [facility] [Entitic vol] System (92292) Comment: Performed By: #### TROPT ### # [facility] [address], [place] [address] Platelets (Bld) [#/Vol] 292 141-365 thou/cmm Normal 2019 [facility] (00 000) Comment: Performed By: #### TROPT ### # [facility] [address], [place] [address] RBC (Bld) [#/Vol] 4.87 4.63-6.08 mil/cmm Normal 01-28-2020 [facility] (00 000) Comment: Performed By: #### TROPT ### # [facility] [address], [place] [address] RDW SD 41.9 36.1-45.8 fl Normal 01-28-2020 [facility] (11972) Comment: Performed By: #### TROPT ### # [facility] [address], [place] [address] Seg Neutrophil 52.4 % Normal 01-28-2020 [facility] (87952) Comment: Performed By: #### TROPT ### # [facility] [address], [place] [address] WBC (Bld) [#/Vol] 8.58 4.23-9.07 thou/cmm Normal 01-28-2020 [facility] (00 000) Comment: Performed By: #### TROPT ### # [facility] [address], [place] [address] basic metabolic panel on 2020-01-28 Anion gap [Moles/Vol] 13 9-18 mmol/L Normal 01-28-20 [facility] (81419) Comment: Performed By: #### TROPT ### # [facility] [address], [place] [address] Calcium [Mass/Vol] 8.7 8.5-10.2 mg/dL Normal 01-28-2020 [facility] (23826) Comment: Performed By: #### TROPT ### # [facility] [address], [place] [address] Chloride [Moles/Vol] 103 97-105 mmol/L Normal 0 [facility] (01176) Comment: Performed By: #### TROPT ### # [facility] [address], [place] [address] CO2 Blood 24 22-30 mmol/L Normal 01-28-2020 [facility] (08630) Comment: Performed By: #### TROPT ### # [facility] [address], [place] [address] Creatinine [Mass/Vol] 0.97 0.73-1.22 mg/dL Normal 01-28-20 [facility] (00 000) Comment: Performed By: #### TROPT ### # [facility] [address], [place] [address] Glucose [Mass/Vol] 132 74-99 mg/dL High 01-28-2020 [facility] (59278) Comment: Result Comment: The [place] Diabetes Association (ADA) provides guidance for cutoff [...] Standards of Medical Care in Diabetes 2016; [place] Diabetes Association. Diabetes Care. 2016;39(Suppl 1). Performed By: #### TROPT ### # [facility] [address], [place] [address] Potassium [Moles/Vol] 3.6 3.7-5.1 mmol/L Low 01-28-20 [facility] (37704) Comment: Performed By: #### TROPT ### # [facility] [address], [place] [address] Sodium [Moles/Vol] 140 136-144 mmol/L Normal 01-28-2020 [facility] (85492) Comment: Performed By: #### TROPT ### # [facility] [address], [place] [address] Urea nitrogen [Mass/Vol] 19 9-24 mg/dL Normal 01-27 [facility] (42808) Comment: Performed By: #### TROPT ### # [address] [address] tsh on 2020-01-27 TSH Qn 1.780 0.270-4.200 uIU/mL Normal 01-27-2020 [facility] (26649) Comment: Result Comment: : 1st trimester:(9-12 weeks):0 [...] result. Performed By: #### TROPT ### # [address] [address] troponin t, high sens. on 2020-01-27 Troponin T, High Sens. 56 0-11 ng/L Critically high 0 01-27-2020 [facility] (00 000) Comment: Result Comment: [...] result. Performed By: #### TROPT ### # [address] [address] Troponin T, High Sens. 62 0-11 ng/L Critically high 0 01-27-2020 [facility] ( 000) Comment: Result Comment: Patients justice [...] result. Performed By: #### TROPT ### # [address] [address] protime on INR Coag (PPP) [Relative 1.06 0.90-1.30 {INR} Normal 01-26 [facility]] System (00 000) Comment: Result Comment: Vitamin K An tagonist (VKA) Therapeutic Range: INR 2 to 3 (Target INR of 2.5) Note: For patients treated w ith VKA drugs, such as warfarin, the [place] [employer] 2012 Guideline recommends a therapeutic INR range of 2 to 3 (target INR of 2.5). This recommendation includes high -risk patients with antiphospholipid syndrome with previous arter ial or venous thromboembolism, current-generation mechanica l or bioprosthetic aortic heart valve replacement. Note: Patients with drafter mechanical al aortic valve replacement and additional risk factors for thromboembolic events (atrial fibrillation, previous throm boembolism, LV dysfunction, hypercoagulable conditions) or an older generation mechanical AVR (i.e., ball in-Cage) or any mechanical MVR should have a INR therapeutic range of 2 .5 to 3.5 target INR of 3). Abby GH, et al. Chest 2012 ; 141:7S-47S Violet RA et al. [facility] 20 ; 70: 252-289 Performed By: #### TROPT ### # [facility] [address], [place] [address] PT Coag (PPP) [Time] 11.4 9.7-13.0 sec Normal 0 [facility] (08408) Comment: Performed By: #### TROPT ### # [facility] [address], [place] [address] progress on 2020-01 PROGRESS HNO ID: [id number] Normal 01-27-2020 [facility] Author: Brittani Warren [place] ([id number]) Service: Neurology ICU Author Type: Physician Type: [...] ill because of imminent risk of ac [place] brain damage, stroke and ICH., HTN and [...] Resolved Neurology * (Principal) Acute ischemic stroke ([facility]) 01/27/2020 - Presen t Current Assessment [...] for rate control Atrial fibrillation with RVR ([facility]) 01/27/2020 - Present Current Assessment AND [...] Class III, BMI >= 40 (morbid obesity) ([facility]) E66.01 05/28/2017 - Present Current Assessment [...] sqh in 48hr Please see the documented [id number]-ql-[id number] plan in the updat ed problem list. [facility] Staff Physician note of personal involvement in Care CRITICAL CARE: I personally spent 33 minutes of critical car e time involved in the care of this patient. Brittani Warren MD Staff, Neurointensive Care [facility] [place] PAGER: [phone] (2NICU for construction technician) DATE of SERVICE: January 27, 2020 TIME of SERVICE: 12:27 PM This is an electronically created document. If printed, please do not remove from the chart or modify pr inted copy. plan of care on PLAN OF CARE HNO ID: [id number] Normal 01-27-20 20 [facility] Author: Terrie Tobias (Pharmacist) [facility] Service: Pharmacy (0 0000) Author Type: Pharmacist Type: Plan of Care Filed: 01/27/2020 10:56 AM Note Text: MEDICATION HISTORY AND MEDICATION RECONCILIATION Patient Name:Mckenzie Cyr : 1955 Source of history:Pharmacy records: [facility] Pharmacy: Medication Nonadherence Identified: No barriers noted The above information represents the best possible medicatio n history: Yes Reconciliation completed? Yes All PATIENT SERVICE REPRESENTATIVE medications addressed by LIP Additional comments: Riaid-eg-Tadlvmdyq Medication List Adju stments: Medication Regimen Changes: None Medications Added: None Medications Removed: None Short-Term Medications: None Further Clarification Required: None Patient is a 30 day readmission: No Patient Interested in Bedside Delivery: No Time Spent Reviewing Patient's Medications: 15 minutes Allergies: ALLERGIES No Known Allergies Preferred Pharmacy: [facility] Pharmacy: [phone] Current PATIENT SERVICE REPRESENTATIVE Medications: Prior to Admission medications as of [...] Phosphate [Mass/Vol] 3.4 2.7-4.8 mg/dL Normal 0 [facility] (89267) Comment: Performed By: #### PHOS #### [place] [address] mrsa screen on 2019 MRSA DNA KARLY+probe Ql Test performed at [facility] Normal 01-27-2020 [facility] (Unsp spec) No MRSA detected. [facility] (84304) Comment: Performed By: #### TROPT ### # [address] [address] mri brain wo ivcon on 2020-01-27 MRI BRAIN WO * * *Final Report* * * Normal 01-08 [facility] IVCON DATE OF EXAM: Jan 27 2020 8:42AM [facility] 0294 - MRI BRAIN WO IVCON / (30949) PROCEDURE REASON: Neuro deficit, subacute, progressive or [...] ischemic infarct in the left parietal lobe. Subsurface Augmentee Operator: PATRICIA Transcribe Date/Time: Jan 27 2020 10:08A Dictated by : TONY VERDUZCO MD This examination was interpreted and the report reviewed and electronically signed by: TONY VERDUZCO MD on Jan 27 2020 10:18AM EST magnesium blood on 2020-01-27 Magnesium [Mass/Vol] 1.9 1.7-2.3 mg/dL Normal 0 [facility] (83116) Comment: Performed By: #### MAG #### [place] [address] lipid profile, basic on 2020-01-27 Cholesterol [Mass/Vol] 99 0-199 mg/dL Normal 020 [facility] (08884) Comment: Result Comment: Total Choles terol < 200 mg/dL, Desirable Total Cholesterol 200 to 239 mg/dL, Borderline high Total Cholesterol > 239 mg/d L, High Performed By: #### LIPDB ### # [facility] [address], [place] [address] Cholesterol in HDL [Mass/Vol] 28 mg/dL Normal 01-27-2020 [facility] (00 000) Comment: Result Comment: Reference Ra nge: HDL Cholesterol 40- 59 mg/dL , Acceptable HDL Cholesterol >59 mg/dL, H igh; Negative risk factor for coronary heart disease HDL C holesterol <40 mg/dL, Low; Positive risk factor for cor onary heart disease Performed By: #### LIPDB ### # [facility] [address], [place] [address] Cholesterol in LDL [Mass/Vol] 57 0-99 mg/dL Normal 01-27-2020 [facility] (00 000) Comment: Result Comment: LDL Choleste [...] mg/dL Performed By: #### LIPDB ### # [facility] [address], [place] [address] Cholesterol in 2.04 0.00-2.53 Normal 01-27-2020 [facility] LDL/Cholesterol in HDL [[facility] (05160) ratio] Comment: Performed By: #### LIPDB ### # [facility] [address], [place] [address] Cholesterol.total/Cholesterol in HDL 3.54 0.00-5.09 [place] 01-27-2020 [facility] [Mass ratio] [facility] (79270) Comment: Performed By: #### LIPDB ### # [address] [address] Non-HDL Cholesterol 71 0-129 mg/dL Normal 01-27-2020 [facility] (38434) Comment: Result Comment: Non HDL Chol esterol [...] L Performed By: #### LIPDB ### # [place] [address] Triglyceride Blood 72 0-149 mg/dL Normal 01-27-2020 [facility] ([id number]) Comment: Result Comment: Triglyceride s < 150 mg/dL, Normal Triglycerides 150 to 199 mg/ dL, Borderline high Triglycerides 200 to 499 mg/ dL, High Triglycerides > 499 mg/dL, V dionne high Performed By: #### LIPDB ### # [place] [address] VLDL Cholesterol 14 0-29 mg/dL Normal 01-27-2020 [facility] (61656) Comment: Performed By: #### LIPDB ### # [place] [address] history physical on 2020-01-27 HISTORY PHYSICAL HNO ID: [id number] Normal 01-08 [facility] Author: Rekha Bojorquez) [facility] Service: Neurology ICU ([id number]) Author Type: Physician Jewelry Finisher Type: HANDP Filed: 01/27/2020 3:57 AM Note [...] w/ RVR by EKG. Patient presents to [facility] as transfer from [place] ED with stroke-like symptoms and possible acute [...] finding a ho use to move to [place]. He reports prior to Sunday, he was feeling 'fine', 'n o issues'. 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 He reports that he cannot read or write. He denies f ever, chills, cough, SOB, n/v/d, abdominal pain, syncope. At [place], patient initial NIH of 5 for mild [...] temperature COORDINATION: Finger-to- nose-finger intact bilaterally and Fhpw-pp-uipc intact bilaterally iNIHSS LOC: 0 - alert [...] and updating family with Staff Physician, Dr. Warern. Assessment AND Plan Active Hospital Problems as [...] - PT/OT eval Atrial fibrillation with RVR ([facility]) 01/27/2020 - Present Current Assessment AND [...] Class III, BMI >= 40 (morbid obesity) ([facility]) E66.01 05/28/2017 - Present Current Assessment [...] nts 01/28/20 0600 activity - mobilize patient ([place], [place]) 01/27/20 0245 pneumatic compression stockings ([place], [place]) VTE Prophylaxis: pneumatic compression stockings Critical Care Time Spent: 40 Minutes. SIGNATURE: Rekha Valdez PA-C PATIENT NAME: Jose Cyr DATE: January 27, 2020 TIME: 3:57 AM PAGER/CONTACT #: hgb a1c on HbA1c (Bld) [Mass fraction] 7.3 4.0-5.6 % High [facility] (66523) Comment: Result Comment: [place] Cherise betes Association guidelines indicate that the patients with HgA1c in the r ilsa 5.7 ? 6.4% are at increased risk for development of diab etes, and intervention by lifestyle modification may be beneficial. HgA1c gre ater or equal to 6.5% is considered diagnostic of diabetes. Performed By: #### TROPT ### # [place] [address] HbA1c (Bld) [Mass fraction] 163 mg/dL Normal [facility] (45305) Comment: Performed By: #### TROPT ### # [facility] [address] [place] [address] hemogram/diff on 27-01-19 Abs Immature Grans 0.02 0.00-0.05 thou/cmm Normal 01-27-2020 [facility] (00 000) Comment: Performed By: #### CBCD1 ### # [facility] [address] [place] [address] Abs Neut (ANC) 5.12 1.78-5.38 thou/cmm Normal 01-27-2020 [facility] (89956) Comment: Performed By: #### CBCD1 ### # [facility] [address] [place] [address] Abs. Baso 0.04 0.01-0.08 thou/cmm Normal 01-27-2020 [facility] (79674) Comment: Performed By: #### CBCD1 ### # [place] [address] Abs. Sevier 0.59 0.30-0.82 thou/cmm Normal 01-27-2020 [facility] (90163) Comment: Performed By: #### CBCD1 ### # [place] [address] Basophils/100 WBC (Bld) 0.5 % Normal 2019 [facility] (28349) Comment: Performed By: #### CBCD1 ### # [place] [id number] Eosinophils (Bld) 0.13 0.04-0.54 thou/cmm Normal 01-27-2020 [facility] [#/Vol] [facility] (01061) Comment: Performed By: #### CBCD1 ### # [place] [id number] Eosinophils/100 WBC (Bld) 1.6 % Normal 01-08 [facility] (77222) Comment: Performed By: #### CBCD1 ### # [place] [id number] Erythrocyte distribution 13.3 11.6-14.4 % Normal 01-26 [facility] width (RBC) [Ratio] System (42412) Comment: Performed By: #### CBCD1 ### # [facility] [address] [place], [place] [address] Hematocrit (Bld) [Volume 42.7 40.1-51.0 % Normal 01-26 [facility] fraction] System (00 000) Comment: Performed By: #### CBCD1 ### # [facility] [address] [place], [place] [address] Hemoglobin (Bld) 13.7 13.7-17.5 g/dL Normal 01-27-2020 [facility] [Mass/Vol] System (0 0000) Comment: Performed By: #### CBCD1 ### # [facility] [address] [place], [place] [address] Immature Grans 0.20 % Normal 01-27-2020 [facility] (91138) Comment: Performed By: #### CBCD1 ### # [facility] [address] [place], [place] [address] Lymphocytes (Bld) 2.41 0.84-2.85 thou/cmm Normal 01-27-2020 [facility] [#/Vol] [facility] (09626) Comment: Performed By: #### CBCD1 ### # [facility] [address] [place], [place] [address] Lymphocytes/100 WBC (Bld) 29.0 % Normal 01-08 [facility] (31568) Comment: Performed By: #### CBCD1 ### # [facility] [address] [place], [place] [address] MCH (RBC) [Entitic mass] 27.5 25.7-32.2 pg Normal 01-26 [facility] (00 000) Comment: Performed By: #### CBCD1 ### # [facility] [address] [place], [place] [address] MCHC (RBC) [Mass/Vol] 32.1 32.3-36.5 % Low 01-27-20 20 [facility] (46775) Comment: Performed By: #### CBCD1 ### # [facility] [address] [place], [place] [address] MCV (RBC) [Entitic vol] 85.7 83.2-95.6 fl Normal 2019 [facility] (00 000) Comment: Performed By: #### CBCD1 ### # [facility] [address] [place], [place] [address] Monocytes/100 WBC (Bld) 7.1 % Normal 2019 [facility] (81853) Comment: Performed By: #### CBCD1 ### # [facility] [address] [place], [place] [address] Platelet mean volume (Bld) 10.7 8.7-12.0 fl Normal [facility] [Entitic vol] System (66041) Comment: Performed By: #### CBCD1 ### # [facility] [address] [place], [place] [address] Platelets (Bld) [#/Vol] 280 141-365 thou/cmm Normal 2019 [facility] (00 000) Comment: Performed By: #### CBCD1 ### # [facility] [address] [place], [place] [address] RBC (Bld) [#/Vol] 4.98 4.63-6.08 mil/cmm Normal 01-27-2020 [facility] (00 000) Comment: Performed By: #### CBCD1 ### # [facility] [address] [place], [place] [address] RDW SD 41.2 36.1-45.8 fl Normal 01-27-2020 [facility] (67733) Comment: Performed By: #### CBCD1 ### # [facility] [address] [place], [place] [address] Seg Neutrophil 61.6 % Normal 01-27-2020 [facility] (19044) Comment: Performed By: #### CBCD1 ### # [facility] [address] [place], [place] [address] WBC (Bld) [#/Vol] 8.31 4.23-9.07 thou/cmm Normal 01-27-2020 [facility] (00 000) Comment: Performed By: #### CBCD1 ### # [facility] [address] [place] [address] [address] brain wo ivcon o n 2020-01-27 CT BRAIN WO IVCON * * *Final Report* * * Normal 01-27-2020 [facility] DATE OF EXAM: Jan 27 2020 4:15AM [facility] 0504 - CT BRAIN WO IVCON / (19175) PROCEDURE REASON: Intracranial hemorrhage * * * [...] al white matter. Probable chronic sinusitis changes. Subsurface Augmentee Operator: PATRICIA Transcribe Date/Time: Jan 27 2020 10:31A Dictated by : TONY VERDUZCO MD This examination was interpreted and the report reviewed and electronically signed by: TONY VERDUZCO MD on Jan 27 2020 10:40AM EST consult on CONSULT HNO ID: [id number] Normal 01-27-2020 Ike Guevara Author: [facility] Service: Cardiovascular Medicine ([id number]) Author Type: Physician Type: Consults Filed: 01/27/2020 [...] i s presenting after a presentation to [facility] concerning for an a cute stroke. [...] he had not been following with a transverse abdominal muscle surgeon prio r to this presentation. 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 Acute Ischemic Stroke [...] 13 MG 1.9 -- ABG: Invalid input(s): [id number] Assessment/Plan IMPRESSION: Critical Care Documentation: The patient [...] 01/27/2020 Time: 5:25 PM CONSULT HNO ID: [id number] Normal 01-27-2020 Ike Guevara Author: [facility] Service: Neurosurgery ([id number]) Author Type: Physician Type: Consults Filed: 01/28/2020 10:45 AM Note Text: CONSULT: Neurosurgery SERVICE SERVICE DATE: 01/27/2020 SERVICE TIME: 1200 REASON FOR CONSULT: acute stroke with hemorrhage REQUESTING PHYSICIAN: neurology PRIMARY CARE PHYSICIAN: Markus Woods III MD Chief complaint - balance issues Subjective Mr. Cyr is a 64 year old male admitted early am today as eugene john from [place] for acute stroke. Neurosurgery consulted for hemorrh agic component to ischemic stroke 'Patient presents to [facility] as transfer from [place] ED with stroke-like symptoms and possible acute [...] of finding a house to move to [place]. He reports prio r to Sunday, he was feeling 'fine', 'no issues'. 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 He re ports that he cannot read or write' Currently denies headache, vision changes, balance issues, a phasia or seizures. Pt is sitting in chair [facility] Pt and feel he is at his [...] Class III, BMI >= 40 (morbid obesity) ([facility]) E66.01 POA: Yes Assessment AND Plan: BHAKTI (obstructive sleep apnea) POA: Unknown Assessment AND Plan: HTN (hypertension) POA: Unknown Assessment AND Plan: Atrial fibrillation with RVR ([facility]) POA: Unknown Assessment AND Plan: Resolved [...] rehab. Sánchez Mak MD SIGNATURE: Fara Houston APRN.CLINICAL DOCUMENT IMPROVEMENT EDUCATOR PATIENT NAME: Jose romano DATE: January 27, 2020 TIME: 1:46 PM PAGER: [phone] case mgt init asses on 2020-01-27 CASE MGT INIT HNO ID: [id number] Normal 020 [facility] Care Management ([id number]) Author Type: Clinical Technician Type: Care Mgt Initial Assessment Filed: 01/27/2020 12:35 PM Note Text: CARE MANAGEMENT: ASSESSMENT AND DISCHARGE PLAN SERVICE DATE: January 27, 2020 SERVICE TIME: 12:31 PM PRIMARY CARE PHYSICIAN: Markus Woods III MD ADMISSION STATUS: Inpatient Needs Prior to Discharge: To Be Determined;OT/PT Evaluation; Discharge Prescriptions MEDICAL: [employer] MEDICAID [place] Patient/Stick Inserter Stated Goals: To return home to life as it was Health Insurance: [employer] Issues Impacting Discharge Plan: (Acute ischemic stro ke) Last Discharge Date: 06/01/17 Is this Within the Past 30 days? Last discharge within 30 days: No Advance Directive: Current Advance Directive: Health Care Power of Commercial Fisherman;Sasha ing Will In Chart: No Silk Worker Attempted to Assist with AD Completion: Yes [...] Patient Currently Receive Any Community Services or [facility] Care?: None Equipment Prior to Admission: None SOCIAL: Living Arrangements: Home Lives With: Spouse Financial Resources: RetiredPrimary Contact: Extended Emerge ncy Contact Information Primary Emergency Contact: Lorena Cyr Address: [address] [place] [address] Mobile Relation: Spouse Supportive Patient Contact:: Yes [...] Completely I feel financially burdened by my tpb-or-dztqwm expenses for my prescription medication:: 0 - Disagree Completely Risk Score: 0 Patient is categorized as: Low risk < 2 Are you interested in bedside delivery of your medications? Yes Is Patient Psychosocially Complex?: No ASSESSMENT AND PLAN: Medical Needs: Medical Needs: Stroke/Cognitive defects;Obesity Psychosocial Needs: Psychosocial Needs: None FREEDOM OF CHOICE EXPLAINED: [place] of Choice Given: No Reason Not Given: [...] independent and lives at home with his PATIENT SERVICE REPRESENTATIVE. Pt recently retired from his job. SW completed depression screen with pt, score did n ot indicate depression. ANJUM educated pt on post stroke emotions. +PCP, +R X at [facility]. Awaiting PT/OT recommendations for discharge planning. SIGNATURE: ANJUM Campbell PATIENT NAME: Jose Cyr DATE: January 27, 2020 TIME: 12:31 PM PAGER/CONTACT #: [phone] basic metabolic panel on 2020-01-27 Anion gap [Moles/Vol] 12 9-18 mmol/L Normal 01-27-20 [facility] (99270) Comment: Performed By: #### BMP #### [address] [address] Calcium [Mass/Vol] 8.6 8.5-10.2 mg/dL Normal 01-27-2020 [facility] (52992) Comment: Performed By: #### BMP #### [facility] [address] [place], [place] [address] Chloride [Moles/Vol] 103 97-105 mmol/L Normal 0 [facility] (99613) Comment: Performed By: #### BMP #### [facility] [address] [place], [place] [address] CO2 Blood 26 22-30 mmol/L Normal 01-27-2020 [facility] (64833) Comment: Performed By: #### BMP #### [facility] [address] [place], [place] [address] Creatinine [Mass/Vol] 0.98 0.73-1.22 mg/dL Normal 01-27-20 [facility] (00 000) Comment: Performed By: #### BMP #### [facility] [address] [place], [place] [address] Glucose [Mass/Vol] 141 74-99 mg/dL High 01-27-2020 [facility] (27247) Comment: Result Comment: The [place] Diabetes Association (ADA) provides guidance for cutoff [...] Standards of Medical Care in Diabetes 2016; [place] Diabetes Association. Diabetes Care. 2016;39(Suppl 1). Performed By: #### BMP #### [facility] [address] [place], [place] [address] Potassium [Moles/Vol] 3.1 3.7-5.1 mmol/L Low 01-27-20 [facility] (27658) Comment: Performed By: #### BMP #### [facility] [address] [place], [place] [address] Sodium [Moles/Vol] 141 136-144 mmol/L Normal 01-27-2020 [facility] (53260) Comment: Performed By: #### BMP #### [facility] [address] [place], [place] [address] Urea nitrogen [Mass/Vol] 17 9-24 mg/dL Normal 01-26 [facility] (14143) Comment: Performed By: #### BMP #### [facility] [address] [place] [id number] activated ptt on 27-01-19 aPTT Coag (Bld) [Time] 25.9 23.0-32.4 sec Normal 020 [facility] (00 000) Comment: Result Comment: Unfractionat ed [...] AP TT reagent in use throughout the [facility]. Performed By: #### TROPT ### # [facility] [address] [place], [place] [address] progress on 2020-01 PROGRESS HNO ID: [id number] Normal 01-26-2020 [facility] Author: Markus Woods III [place] ([id number]) Service: ? Author Type: Physician Type: Progress [...] similar previous ch est pain. Bro from [place] in November 2019. Denies ETOH. Never smoked [...] [Mass/Vol] 110 <200 mg/dL Normal 01-25- 020 [facility] (56538) Comment: Result Comment: <200 mg/dL, Desirable 200-239 mg/dL, Borderline hi gh >239 mg/dL, High Performed By: #### CBC, CMP, LIPNF #### [facility] [address] [place], [place] [address] Cholesterol in 2.18 <2.54 mg/dL Normal 01-25-2019 [facility] LDL/Cholesterol in HDL [[facility] (34703) ratio] Comment: Result Comment: Reference: 1. National Cholesterol Educ ation Program ATP III Guideline At-A-Glance Quick Desk Reference: National Heart, Lung, and Blood [place]. National Institutes of Health. 2001: NIH Publication No. 01-3305. 2. An International Atherosc lerosis Society position paper: global recommendations for the management of dyslipidemia: executive summary, Atherosclerosis. 2014: 232(2):410-413. Performed By: #### CBC, CMP, LIPNF #### [facility] [address] [place], [place] [address] Cholesterol.total/Cholesterol in 3.93 <5.10 mg/dL Normal 01-26-2020 [place] HDL [Mass ratio] [facility] (64873) Comment: Performed By: #### CBC, CMP, LIPNF #### [facility] [address] [place], [place] [address] HDL Cholesterol, NF 28 >39 mg/dL Low 01-26-2020 [facility] (92554) Comment: Result Comment: 40-59 mg/dL, Acceptable >59 mg/dL, High: Negative ri sk factor for coronary heart disease <40 mg/dL, Low: Positive ris k factor for coronary heart disease Performed By: #### CBC, CMP, LIPNF #### [facility] [address] [place], [place] [address] LDL Cholesterol, NF 61 <100 mg/dL Normal 01-26-2020 [facility] (08914) Comment: Result Comment: <100 mg/dL, Optimal 100-129 mg/dL, Near optimal/ above optimal 130-159 mg/dL, Borderline hi gh 160-189 mg/dL, High >189 mg/dL, Very high Secondary prevention optimal LDL Cholesterol levels are recommended to be < 70 mg/dL Performed By: #### CBC, CMP, LIPNF #### [facility] [address] [place], [place] [address] Non HDL Chol, NF 82 <130 mg/dL Normal 01-26-2020 [facility] (24088) Comment: Result Comment: <130 mg/dL, Optimal 130-159 mg/dL, Near optimal/ above optimal 160-189 mg/dL, Borderline hi gh 190-219 mg/dL, High >219 mg/dL, Very high Secondary prevention optimal non HDL Cholesterol levels are recommended to be < 100 mg/dL Performed By: #### CBC, CMP, LIPNF #### [facility] [address] [place], [place] [address] Triglycerides, NF 106 <150 mg/dL Normal 01-26-2020 [facility] (78262) Comment: Result Comment: <150 mg/dL, Normal 150-199 mg/dL, Borderline hi gh 200-499 mg/dL, High >499 mg/dL, Very high Performed By: #### CBC, CMP, LIPNF #### [facility] [address] [place], [place] [address] VLDL Cholesterol, NF 21 <30 mg/dL Normal 0 [facility] (00356) Comment: Performed By: #### CBC, CMP, LIPNF #### [facility] [address] [place], [place] [address] ekg1 on 2020-01-26 EKG1 NAME : JOSE CYR Normal 01-26-2020 [facility] PID : [id number] Abpaula patton ([id number]) : 1955 Gender : Male Race : [...] ms QTC Calculation(Bazett) : 511 ms R [place] : 19 degrees T [place] : 177 degrees Test Reason : Location : 185 : [facility] Overread By : MD LAIRD GREGORY Edited By : MD LAIRD GREGORY Referred By : MARKUS WOODS III Acquired by : MICHAEL, ct-cta head and neck w/ contrast import on 2020-01-26 CT-CTA Head AND Images were obtained outside of [facility] Normal 01-26-2020 [facility] Neck W/ Contrast [id number] [place] ([address]) IMPORT CT-CTA Head AND Images were obtained outside of [facility] Normal 01-26-2020 [facility] Neck W/ Contrast [id number] [place] ([address]011) IMPORT ct-brain/head without contrast import on 2020-01-26 CT-Brain/Head Images were obtained outside of [facility] Normal 01-26-2020 [place] without Contrast [id number] Clinic IMPORT [place] ([address]) comp metabolic panel on 2020-01-26 Albumin [Mass/Vol] 4.0 3.9-4.9 g/dL Normal 01-26-2020 [facility] (96888) Comment: Performed By: #### CBC, CMP, LIPNF #### [facility] [address] [place], [place] [address] ALP [Catalytic activity/Vol] 72 38-113 U/L Normal 0 01-26-2020 [facility] (83910) Comment: Performed By: #### CBC, CMP, LIPNF #### [facility] [address] [place], [place] [address] ALT [Catalytic activity/Vol] 13 10-54 U/L Normal 0 01-26-2020 [facility] (22004) Comment: Performed By: #### CBC, CMP, LIPNF #### [facility] [address] [place], [place] [address] Anion gap [Moles/Vol] 15 9-18 mmol/L Normal 01-26-20 [facility] (91984) Comment: Performed By: #### CBC, CMP, LIPNF #### [facility] [address] [place], [place] [address] AST [Catalytic activity/Vol] 24 14-40 U/L Normal 0 01-26-2020 [facility] (52924) Comment: Performed By: #### CBC, CMP, LIPNF #### [facility] [address] [place], [place] [address] Bilirubin [Mass/Vol] 1.1 0.2-1.3 mg/dL Normal 0 [facility] (87764) Comment: Performed By: #### CBC, CMP, LIPNF #### [facility] [address] [place], [place] [address] Calcium [Mass/Vol] 9.1 8.5-10.2 mg/dL Normal 01-26-2020 [facility] (93022) Comment: Performed By: #### CBC, CMP, LIPNF #### [facility] [address] [place], [place] [address] Chloride [Moles/Vol] 101 97-105 mmol/L Normal 0 [facility] (10049) Comment: Performed By: #### CBC, CMP, LIPNF #### [place] [address] CO2 [Moles/Vol] 25 22-30 mmol/L Normal 01-26-2020 [facility] (85166) Comment: Performed By: #### CBC, CMP, LIPNF #### [facility] [address] [place], [place] [address] Creatinine [Mass/Vol] 1.08 0.73-1.22 mg/dL Normal 01-26-20 20 [facility] (83267) Comment: Performed By: #### CBC, CMP, LIPNF #### [place] [address] [place], [place] [address] eGFR- Amer. >60 Normal 01-26-2020 [facility] (17795) Comment: Performed By: #### CBC, CMP, LIPNF #### [facility] [address] [place], [place] [address] GFR/1.73 sq M predicted >60 mL/min/{1.73_m2} Normal 01-26-2020 [facility] among non-blacks [facility] (37318) (S/P/Bld) [Vol rate/Area] Comment: Result Comment: eGFR [...] Performed By: #### CBC, CMP, LIPNF #### [facility] [employer] [address] [place], [place] [address] Glucose [Mass/Vol] 128 74-99 mg/dL High 01-26-2020 [facility] (11554) Comment: Result Comment: The [place] Diabetes Association (ADA) provides guidance for cutoff [...] of diabetes. Reference: Standards of [facility] Care in Diabetes 2016, [place] Diabetes Association. Diabetes Care. 2016.39(Suppl 1). Performed By: #### CBC, CMP, LIPNF #### [facility] [employer] [address] [place], [place] [address] Potassium [Moles/Vol] 3.6 3.7-5.1 mmol/L Low 01-26-20 [facility] (77308) Comment: Performed By: #### CBC, CMP, LIPNF #### [facility] [employer] [address] [place], [place] [address] Protein [Mass/Vol] 7.1 6.3-8.0 g/dL Normal 01-26-2020 [facility] (44440) Comment: Performed By: #### CBC, CMP, LIPNF #### [facility] [address] [place], [place] [address] Sodium [Moles/Vol] 141 136-144 mmol/L Normal 01-26-2020 [facility] (76580) Comment: Performed By: #### CBC, CMP, LIPNF #### [facility] [address] [place], [place] [address] Urea nitrogen [Mass/Vol] 19 9-24 mg/dL Normal 01-25 [facility] (26274) Comment: Performed By: #### CBC, CMP, LIPNF #### [facility] [address] [place], [place] [address] cnpn on 2020-01-26 CNPN Telephone (FAMPWS) Normal 01-26-2020 [place] JOSE Bell ([id number]) 1955 [facility] Date Time Provider Department () 01/26/20 [...] be seen. Please call h er back [phone]. Heather Cyr, MSN WATER SUPERVISOR.CLINICAL DOCUMENT IMPROVEMENT EDUCATOR 01/26/2020 10:14 AM Signed Yes, patient can be seen in office. Roseline wilson facilitate an appointment with PCP. Heather Cyr, MSN WATER SUPERVISOR.DARBY Edwards LPN 01/26/2020 10:32 AM Signed Pt's [...] 2020-01-26 CNOV Office Visit (FAMPWS) Normal 01-26-[address] [place] [address] JOSE Bell ([id number]) 1955 [facility] Time Provider Department ([id number]) 01/26/20 2:40 PM MARKUS WOODS III During [...] No similar previous chest pain. Bro from [place] in November 2019. Denies ETOH. Never smoked [...] Allergies) Date Reviewed: 01/26/2020 Reviewed by: Petty ([facility]) VI Post - Fully Assessed Reason for Visit: Dizziness [36] Primary Visit Diagnosis:Chest pain, unspecified type [R07.9] Other Visit Diagnoses:Obesity, Class III, BMI >= 40 (morbid obesity) ([facility]) E66.01 [E66.01] Hypertension, essential [I10] Family history of cardiac arrest [Z82.49] Atrial fibrillation, unspecified type ([facility]) [I48.91] Abnormal EKG [R94.31] Order(s):ECG COMPLETE [ECG01] Order #: [id number] FUTURE COMP METABOLIC PANEL [SQCMP] Order #: [id number] FUTURE CBC [SQCBC] Order #: [id number] FUTURE LIPID PANEL, NONFASTING [SQLIPNF] Order #: [id number] FUTURE metoprolol succinate ER (TOPROL XL) 25 mg 24 hr tabletTake 1 tablet by mouth once daily.Disp: 30 tabletRfl: 2 aspirin, enteric coated (ECOTRIN LOW STRENGTH) 81 mg EC tabl etTake 1 tablet by mouth once daily.Disp: Rfl: CONSULT TO CARDIOLOGY [9004] Order #: [id number]: 1 FUTUR E nitroglycerin sublingual (NITROQUICK) 0.4 [...] 2020-01-26 Absolute nRBC <0.01 <0.01 Normal 01-26-2020 [facility] ([id number]) Comment: Performed By: #### CBC, CMP, LIPNF #### [facility] [address] [place], [place] [address] Erythrocyte distribution 13.3 11.5-15.0 % Normal 01-25 [facility] width (RBC) [Ratio] [place] ([id number]) Comment: Performed By: #### CBC, CMP, LIPNF #### [facility] [address] [place], [place] [id number] Hematocrit (Bld) [Volume 45.6 39.0-51.0 % Normal 01-25 [facility] fraction] [place] ([id number]) Comment: Performed By: #### CBC, CMP, LIPNF #### [facility] [place], [place] [address] Hemoglobin (Bld) 14.6 13.0-17.0 g/dL Normal 01-26-2020 [facility] [Mass/Vol] [place] ([id number]) Comment: Performed By: #### CBC, CMP, LIPNF #### [facility] [address] [place] [address] MCH (RBC) [Entitic mass] 28.0 26.0-34.0 pG Normal 01-25 [facility] (81401) Comment: Performed By: #### CBC, CMP, LIPNF #### [facility] [address] [place] [address] MCHC (RBC) [Mass/Vol] 32.0 30.5-36.0 g/dL Normal 01-26-20 20 [facility] ([id number]) Comment: Performed By: #### CBC, CMP, LIPNF #### [facility] [address] [place] [address] MCV (RBC) [Entitic vol] 87.4 80.0-100.0 fL Normal 01-25 [facility] ([id number]) Comment: Performed By: #### CBC, CMP, LIPNF #### [facility] [address] [place] [address] Platelet mean volume 11.0 9.0-12.7 fL Normal 0 [facility] (Bld) [Entitic vol] [place] ([address]) Comment: Performed By: #### CBC, CMP, LIPNF #### [facility] [address] [place], [place] [address] Platelets (Bld) [#/Vol] 315 150-400 k/uL Normal 2019 [facility] ([id number]) Comment: Performed By: #### CBC, CMP, LIPNF #### [facility] [address] [place], [place] [address] RBC (Bld) [#/Vol] 5.22 4.20-6.00 m/uL Normal 01-26-2020 [facility] ([id number]) Comment: Performed By: #### CBC, CMP, LIPNF #### [facility] [address] [place], [place] [address] WBC (Bld) [#/Vol] 9.91 3.70-11.00 k/uL Normal 01-26-2020 [facility] ([id number]) Comment: Performed By: #### CBC, CMP, LIPNF #### [facility] [address] [place], [place] [address] surgical consultation on 2017-05-21 Surgical Consultation Normal 05-21-20 [facility]) ([id number]) patient summary documents on 2017-05-21 Patient Summary Documents Normal 05-11 [facility]) ([id number]) ed note-provider on 2017-05-21 ED Note-Provider Normal 05-21-2017 [facility]) ([id number]) Vital Signs Vital Sign Description Value / Unit Date Location The following section is limited to 5 en tries per type and includes entries from the following time range: [id number] - [id number] 8. Body weight 125.19 kg 05-07-2020 [facility] (48675) BP Diastolic 84 mm[Hg] 05-07-2020 [facility] (43251) BP Systolic 132 mm[Hg] 05-07-2020 [facility] (76292) Pulse (Heart Rate) 76 /min 05-07-2020 [place] [facility] ([address]64) Respiratory Rate 16 /min 05-07-2020 [facility] [facility] (00520) Encounters Date Type Reason Provider Location 05-21-2017 - Emergency MARKUS WHITEBUL Facility:A 05-21-2017 department patient BRENNA ERAZO PHY visit WO [id number] REFERRING 05-13-2020 - Letter encounter Markus Stuart Med icine 05-13-2020 [place] 05-10-2020 - Orders Only Hypertensive Markus Stuart Medicin e 05-10-2020 disorder [place] Comment: Hypertension, unspecified ty pe 05-14-2020 - Patient encounter External [facility] 05-14-2020 procedure Provider 05-07-2020 - Patient encounter Hypertensive Markus Stuart Me dicine 05-07-2020 procedure disorder Lab [facility] [place] Comment: Atrial fibrillation, unspeci fied [...] 03-04-2020 Patient encounter TESFAYE PAUL SELF Faci lity:[facility] procedure SELF MARKUS ANDREAL 05-14-2020 Results Only External Provider External-N [facility] Procedures Procedure Name Date Provider Location EXTERNAL IMAGING 05-14-2020 External Provider [place] [facility] ([id number]) Comprehensive metabolic 2000 05-07-2020 Markus [facility] ([id number]) panel HbA1c (Bld) [Mass fraction] 05-07-2020 Markus Rivas [facility] (70351) LIPID PANEL BASIC 05-07-2020 Markus Riavs [facility] (61862) Electrocardiogram 01-26-2020 [facility] ([id number]) Plan of Treatment Plan Description Date Location ANNUAL PCP TEAM CHRONIC ANNUAL PCP TEAM CHRONIC 05-07-2021 - [facility] DISEASE VISIT DISEASE VISIT 05-07-2021 ([id number]) LDL CHOLESTEROL LDL CHOLESTEROL 05-07-2021 - [facility] 05-07-2021 (62210) HBA1C HBA1C 11-07-2020 - [facility] 11-07-2020 (88407) INFLUENZA (#1) INFLUENZA (#1) 2020 - [facility] 05-11-2020 ([id number]) PROSTATE CANCER PROSTATE CANCER 2012 - [facility] SCREENING DISCUSSION SCREENING DISCUSSION 2012 (67529 ) SHINGRIX VACCINE (1 of SHINGRIX VACCINE (1 of 2007 - [facility] 2) 2) 2007 (95763) COLORECTAL CANCER COLORECTAL CANCER 2007 - [facility] inic SCREENING,SEE MODIFIER SCREENING,SEE MODIFIER 2007 (4 [phone]) DTAP,TDAP,TD (1 - Tdap) DTAP,TDAP,TD (1 - Tdap) 1976 - [facility] 1976 (60336) BP CONTROLLED (<130/80) BP CONTROLLED (<130/80) 1975 - [facility] 1975 (67486) HEPATITIS C SCREENING HEPATITIS C SCREENING 1975 - [facility] 1975 (54055) HIV SCREENING HIV SCREENING 1975 - [facility] 1975 (60004) ONE PNEUMOVAX PRIOR TO ONE PNEUMOVAX PRIOR TO 1973 - [facility] AGE 67 AGE 67 1973 (11889) DIABETIC FOOT EXAM DIABETIC FOOT EXAM 1967 - [facility] 1967 (85997) URINE ALBUMIN:CREATININE URINE ALBUMIN:CREATININE 1967 - [facility] RATIO RATIO 1967 (90358) DILATED RETINAL EXAM DILATED RETINAL EXAM 1967 - [facility] 1967 (65937) Payers Payer Name Policy Number [facility] Hillary EDMOND [id number] [facility] ([place]) ([id number]) ANNE MEDICAID [id number] [facility] (44 195) The following information is from the original human readable contentNo Payer Records FoundNo Payer Records FoundNo Payer Records FoundNo Payer Records FoundNo Payer Records FoundNo Payer Records FoundNo Payer Records Found Social History Type Social History Date Location Description Tobacco smoking status Never smoker 05-07-2020 - [facility] NHIS 05-07-2020 ([id number]) Tobacco use and Never used 05-07-2020 - [facility] exposure 05-07-2020 (66847) Alcohol intake Current drinker of 05-07-2020 [facility] alcohol (finding) 05-07-2020 (14451) History SDOH Financial 5 01-27-2020 - [facility] 01-27-2020 (91637) History SDOH Food 1 01-27-2020 - [place] [facility] Worry 01-27-2020 (15221) History SDOH Transport 2 01-27-2020 - [facility] Med 01-27-2020 (45792) Alcohol Comment occasional 11-04-2013 - [facility] 11-04-2013 (36206) Sex Assigned At Not on file [facility] (39918) Exposure to SARS-CoV-2 Not sure [facility] (event) (67347) The following information is from the original [...] Documents on File Type Date Recorded Patient Stick Inserter Explanati on Advance Directive(s) 05/22/2017 7:14 AM [...] III, BMI >= 40 (morbid ob esity) ([facility]) E66.01 Morbid obesity Severe anxiety with panic Type 2 diabetes mellitus without complic ation, without long-term current use of insulin ([facility]) Diagnosis Hypertension, unspecified type Diagnosis Type 2 diabetes mellitus without complic ation, without long-term current use of insulin ([facility]) Hyperlipidemia LDL goal <100 Other and [...] BE BASED ON THE PRIMARY CLINICAL RECORDS. [facility] provides no warranty or guarantee of the accuracy or completeness of information in this document. UNRECOGNIZED CONTENT PROVIDED BELOW FOR UNRECOGNIZED SECTION No Status Records FoundNo Status Records FoundNo Status Records FoundNo Status Records FoundNo Status Records Found UNRECOGNIZED CONTENT PROVIDED BELOW FOR UNRECOGNIZED SECTION INFORMATION SOURCE DATE CREATED AUTHOR AUTHOR'S ORGANIZATIO N 03/06/2018 [facility] ([place]) DATE CREATED AUTHOR AUTHOR'S ORGANIZATIO N 03/30/2020 [facility] DATE CREATED AUTHOR AUTHOR'S ORGANIZATIO N 04/01/2020 [facility] DATE CREATED AUTHOR AUTHOR'S ORGANIZATIO N 04/01/2020 [facility] DATE CREATED AUTHOR AUTHOR'S ORGANIZATIO N 05/14/2020 [facility] coy UNRECOGNIZED CONTENT PROVIDED BELOW FOR UNRECOGNIZED SECTION Source Comments In the event this information is protected by the Federal Confidentiality of Alcohol and Drug Abuse Patient Records regulations: The Federal rules restrict any use of the information to criminally investigate or prosecute any alcohol or drug abuse patient.[facility] the event this information is protected by the Federal Confidentiality of Alcohol and Drug Abuse Patient Records regulations: The Federal rules restrict any use of the information to criminally investigate or prosecute any alcohol or drug abuse patient.[facility] the event this information is protected by the Federal Confidentiality of Alcohol and Drug Abuse Patient Records regulations: The Federal rules restrict any use of the information to criminally investigate or prosecute any alcohol or drug abuse patient.[facility] the event this information is protected by the Federal Confidentiality of Alcohol and Drug Abuse Patient Records regulations: The Federal rules restrict any use of the information to criminally investigate or prosecute any alcohol or drug abuse patient.[facility] the event this information is protected by the Federal Confidentiality of Alcohol and Drug Abuse Patient Records regulations: The Federal rules restrict any use of the information to criminally investigate or prosecute any alcohol or drug abuse patient.[facility] UNRECOGNIZED CONTENT PROVIDED BELOW FOR UNRECOGNIZED SECTION [...] should establish with a family physician in [place] and obtain follow-up labs in 3 months. The lipids, kidney and liver function tests, and other lab results are fine Markus Woods III, MD, FAAFP documented in this encounter
== END 2020-01-27 01:10 | disposition short-term general hospital (02) ==
PROVIDERS: Emergency Provider Emergency Medicine; PCP Family Medicine
DX: I63.9 Cerebral infarction, unspecified (principal); R47.01 Aphasia; R47.81 Slurred speech; H53.489 Generalized contraction of visual field, unspecified eye; R26.2 Difficulty in walking, not elsewhere classified; I48.91 Unspecified atrial fibrillation; I10 Essential (primary) hypertension; R73.9 Hyperglycemia, unspecified; R07.9 Chest pain, unspecified; Z79.82 Long term (current) use of aspirin; Z79.899 Other long term (current) drug therapy; Z87.891 Personal history of nicotine dependence
CPT/HCPCS: 70450; 70496; 70498; 80048; 82962; 84484; 85025; 85610; 85730; 93005; 96374; 99285; Q9967; A4216

== ENCOUNTER 2020-03-30 16:01 | Emergency (ER) | payer MEDICAID, SELFPAY ==
[2020-03-01 13:30] VITALS: BMI 36.1
[2020-03-30 16:02] VITALS: BP 153/105; PULSE 97; RESP 20; TEMP 36.4; O2SAT 96; BMI 39.2
--- NOTE | 2020-03-30 16:12 | CT_ITS ---
STUDY: CT BRAIN WITHOUT CONTRAST REASON FOR EXAM: Male, 64 years old. HISTORY OF BRAIN BLEED JANUARY 2020. CONFUSION RADIATION DOSAGE (If Supplied By Facility): CTDIvol = ( 44.99 ) mGy, DLP = ( 846.73 ) mGycm TECHNIQUE: Transaxial CT imaging of the brain was performed without administration of intravenous contrast material. Individualized dose optimization techniques were used for this CT. COMPARISON: January 26, 2020. FINDINGS: Normal soft tissue structures. Normal calvarium. Calcification of cavernous carotids. Mild atrophy and moderate periventricular white matter ischemic changes.. Normal basal ganglia and thalami. Normal brainstem. Normal cerebellum. There is diffuse hypoattenuation in the left parietal lobe consistent with old infarct. There is a linear focus of increased attenuation possibly representing recurrent bleed in the sulcus or unopacified partially thrombosed vessel.. .. There are no findings of an acute ischemic infarction. Postsurgical changes status post right orbital exenteration. Mucosal thickening in left maxillary and bilateral ethmoid sinuses greater on the right Size of the infarct has decreased since previous study as has the acute hemorrhage. CT/Brain/Head without Contrast IMPRESSION: Resolving hemorrhagic infarct in left parietal lobe with small linear focus of increased attenuation possibly representing focal recurrent minimal subarachnoid bleed or partially thrombosed vessel. N.B. : The above information has been verbally conveyed by Price Mcfarlane MD to Francesco Engle MD, on 03/30/2020 17:25:18 (ET). Electronically Signed: Price Mcfarlane MD at 17:34 EDT , Service support ,
--- NOTE | 2020-03-30 16:14 | ED.VIS.GEN ---
History of Present Illness Chief Complaint: General Illness Informant: Patient Onset: Today Current Severity: Mild Maximum Severity: Mild Narrative: Patient is a 64-year-old male with medical history significant for hypertension and atrial fibrillation with recent hospitalization for hemorrhagic stroke presents to be checked out. The patient states that his initial stroke symptoms were changes in vision and then right hand weakness. He was found to have a subacute stroke with hemorrhagic conversion. The patient was hospitalized at [facility]. He states that his weakness in his right arm has basically totally resolved. He states that now, he has been having a short fuse. He states that his was concerned that he may have had another stroke. He denies weakness. He denies visual change. He denies numbness or tingling. He has not had headache. He is otherwise been in his normal state of health. Prior similar symptoms: Yes Recent Illness/Hospitalization: Yes Past Medical History - Allergies and Home Meds Allergies/Adverse Reactions: Allergies No Known Allergies Allergy (Verified 03/30/20 16:05) Primary Care Physician: Rian Loja III, MD [Primary Care Provider] - Prior records reviewed: Yes Past Medical History: - - A. fib, hypertension, prior hemorrhagic stroke Surgical History: noncontributory Smoking Status: Never smoker Review of Systems General: Denies: Chills, Fever, Sweats Eyes: Denies: Visual changes - bilaterally, Diplopia ENT: Denies: Rhinorrhea, Sore throat Cardiovascular: Denies: Chest pain, Palpitations Respiratory: Denies: Dyspnea, Cough, Dyspnea on exertion Gastrointestinal: Denies: Abdominal pain, Nausea, Vomiting, Diarrhea, Melena, Hematochezia Genitourinary: Denies: Dysuria, Hematuria, Frequency Musculoskeletal: Denies: Back pain, Extremity Pain Skin: Denies: Rash, Wounds Neurological: Denies: Headache, Weakness, Numbness Physical Exam Vital Signs/Narrative: Vital Signs Temp Pulse Resp BP Pulse Ox 03/30/20 16:02 97.6 F L 97 20 H 153/105 H 96 Inital Vital Signs reviewed: Yes General: Well nourished, Well developed, No Acute Distress Head: Normocephalic, Atraumatic Eyes: EOMI, - - Prosthetic right eye from prior trauma ENT: Moist mucous membranes, No rhinorrhea Neck: Supple, Nontender Cardiovascular: Regular rate, Regular rhythm, No murmurs Respiratory: No distress, CTA bilaterally, Chest nontender Abdomen: Soft, Nontender, Nondistended, Normal bowel sounds Back: Nontender, Normal Inspection Extremities: Nontender, No edema Skin: Normal color, No rash Neurological: Alert, Oriented x3, Cranial nerves II-XII grossly intact, Normal Strength, Normal Sensation Psychological: Normal affect, Normal Mood Diagnostic/Tx/Re-eval Abnormal Lab Results 03/30/20 03/30/20 16:15 16:15 WBC 9.7 RBC 5.52 Hgb 15.1 Hct 46.1 MCV 83.5 MCH 27.4 MCHC 32.8 RDW Std Deviation 42.8 RDW Coeff of [place] 14.1 Plt Count 252 MPV 10.1 Immature Gran % (Auto) 0.200 Neut % (Auto) 56.2 Lymph % (Auto) 33.3 [place] % (Auto) 6.2 Eos % (Auto) 3.6 Baso % (Auto) 0.5 Absolute Neuts (auto) 5.4 Absolute Lymphs (auto) 3.22 Nucleated RBC % 0 Sodium 140 Potassium 3.2 L Chloride 105 Carbon Dioxide 30.0 Anion Gap 5 BUN 19 H Creatinine 1.22 Estim Creat Clear Calc 66.86 Est GFR (MDRD) Af Amer 77 Est GFR (MDRD) Non-Af 64 BUN/Creatinine Ratio 15.6 Glucose 206 H Calcium 8.9 Total Bilirubin 1.60 H AST 18 ALT 20 Alkaline Phosphatase 95 Total Protein 8.4 H Albumin 4.0 Globulin 4.4 H Albumin/Globulin Ratio 0.9 Clinical Impression(s) from Imaging Studies Brain CT 03/30/20 16:12 IMPRESSION: Resolving hemorrhagic infarct in left parietal lobe with small linear focus of increased attenuation possibly representing focal recurrent minimal subarachnoid bleed or partially thrombosed vessel. N.B. : The above information has been verbally conveyed by Price Mcfarlane MD to Francesco Engle MD, on 03/30/2020 17:25:18 (ET). Electronically Signed: Price Mcfarlane MD at 17:34 EDT , Service support , ADDENDUM: 03/30/20 7792 IMPRESSION: Resolving hemorrhagic infarct in left parietal lobe with small linear focus of increased attenuation possibly representing focal recurrent minimal subarachnoid bleed or partially thrombosed vessel. N.B. : The above information has been verbally conveyed by Price Mcfarlane MD to Francesco Engle MD, on 03/30/2020 17:25:18 (ET). Electronically Signed: Price Mcfarlane MD at 17:34 EDT , Service support , - Medical Decision Making The patient presents requesting CT scan. He states that he has been agitated towards his family since his stroke. His is concerned that he had a recurrent bleed. The patient has absolutely no neurologic symptoms. He denies headache or visual change. Patient underwent CT of his brain. The area of prior infarct is resolving. There was one linear density seen on one cut. I discussed this with radiologist who thought it was more likely to be vessel rather than acute bleed. Again, the patient has no other symptoms. At this point, the patient wants to go home and I feel this is reasonable. He will be discharged. Impression 1. History of prior stroke ED Disposition - Plan for ED Patient: Disposition: Home or Assisted Living Instructions: ED Head Injury Adult Referrals: Rian Loja III, MD [Primary Care Provider] -
[2020-03-30 16:34] LABS: Absolute Lymphocyte Count 3.22 X10^3/uL (0.83-4.51); Absolute Neutrophil Count 5.4 X10^3/uL (2.0-7.7); Basophil# 0.05 X10^3/uL; Basophil% 0.5 % (0-1); Eosinophil# 0.35 X10^3/uL; Eosinophils% 3.6 % (0-5); Hematocrit 46.1 % (40-54); Hemoglobin 15.1 g/dL (13.0-16.5); Lymphocyte # 3.22 X10^3/ul (4.0); Lymphocyte % 33.3 % (19-41); Mean Corp Hgb Conc 32.8 g/dL (32-36); Mean Corpuscular Hgb 27.4 pg (27.0-32.0); Mean Corpuscular Volume 83.5 fL (80-94); Mean Platelet Vol. 10.1 fl (6.2-12.0); Monocyte% 6.2 % (0-10); NRBC Flagged by Analyzer 0 % (0-5); Neutrophil # 5.43 X10^3/uL (2.7-7.7); Neutrophil % 56.2 % (47-70); Platelet Count 252 K/mm3 (150-450); RBC Distribution Width CV 14.1 % (11.6-14.6); RBC Distribution Width SD 42.8 fl (35.1-43.9); Red Blood Count 5.52 M/mm3 (4.6-6.2); White Blood Count 9.7 K/mm3 (4.4-11.0)
[2020-03-30 16:45] LABS: ALB/GLOB Ratio 0.9 RATIO (0.9-2.4); AST(SGOT) 18 U/L (15-37); Alanine Aminotransfer ALT/SGPT 20 U/L (16-61); Alkaline Phosphatase 95 U/L (45-117); Anion Gap 5 (5-15); BUN 19 mg/dL (7-18); BUN/Creat Ratio 15.6 RATIO (10-20); Calcium,Total 8.9 mg/dL (8.5-10.1); Chloride 105 mmol/L (98-107); Creatinine, Serum 1.22 mg/dL (0.70-1.30); EST Glomerular Filtration Rate 64 mL/min (>60); Est Glom Filt Rate - Afr Amer 77 mL/min (>60); Estimated Creatinine Clearance 66.86 ml/min; Globulin 4.4 g/dL (2.2-4.2); Glucose 206 mg/dL (74-106); Potassium 3.2 mmol/L (3.5-5.1); Protein, Total 8.4 g/dL (6.4-8.2); Sodium Level 140 mmol/L (136-145)
[2020-03-30 17:37] VITALS: BP 157/89; PULSE 81; RESP 18; TEMP 36.3; O2SAT 99
== END 2020-03-30 17:39 | disposition home or self-care (01) ==
LOC: ED 16:35
PROVIDERS: Emergency Provider Emergency Medicine; PCP Family Medicine
DX: R53.1 Weakness (principal); I10 Essential (primary) hypertension; I48.91 Unspecified atrial fibrillation; Z86.73 Personal history of transient ischemic attack (TIA), and cerebral infarction without residual deficits
CPT/HCPCS: 70450; 80053; 85025; 96360; 99284; J7040